=== PATIENT | male | born 1950 | race Caucasian/White ===

== ENCOUNTER 2017-09-21 10:58 | Emergency (ER) | payer MEDICARE, OTHER, SELFPAY ==
--- NOTE | 2017-09-21 11:06 | DI.RAD.S_ITS ---
PROCEDURE: XR FOOT RT MIN 3V INDICATIONS: heard a pop yesterday. TECHNIQUE: 3 views of the foot were acquired. COMPARISON: None. FINDINGS: Bones: No fractures or dislocations. No suspicious bony lesions. Soft tissues: No tibiotalar joint effusion. Achilles tendon appears normal. Dorsal lateral soft tissue swelling. IMPRESSION: No fracture or dislocation. Dorsal lateral soft tissue swelling. If clinical symptoms persist or clinical suspicion for pathology is high, MRI is suggested for further evaluation. Dictated by: Casi Butt M.D. on 09/21/2017 at 11:54 Approved by: Casi Butt M.D. on 09/21/2017 at 11:55
[2017-09-21 11:07] VITALS: BP 143/89; PULSE 75; RESP 16; TEMP 36.1; O2SAT 100; BMI 32.3
[2017-09-21 11:08] VITALS: BP 143/89; O2SAT 98
--- NOTE | 2017-09-21 12:05 | ED.LOWEXIN ---
HPI - Extremity Injury (Lower) General Chief Complaint: Extremity Injury, Lower Stated Complaint: HEARD POP IN FOOT, SHARP PAIN Time Seen by Provider: 09/21/17 11:03 History of Present Illness HPI Narrative: HPI 67-year-old male with apparently idiopathic RLE lymphedema presents for evaluation of right lateral foot pain that began when he was walking yesterday, patient felt a pop and has had difficulty walking secondary to pain. Patient denies further trauma, notes baseline sensation in his right foot, has been using crutches that he obtained prior to arrival. ROS with no recent constitutional symptoms. Exam Gen: Pleasant, nontoxic-appearing, resting comfortably. HEENT: NC, AT, PEERL, EOMI. Resp: Unlabored respirations with a normal work of breathing. Card: Extremities warm and well perfused. GI: Non-distended. : Deferred MSK: Right calf without visible or palpable trauma, muscle compartments soft and non-tender to palpation. Cota test with plantar flexion. No tenderness to palpation over the tibia or fibula. Ankle visually normal without ecchymosis inferior to the lateral malleolus. No tenderness over the posterior lateral malleolus, no tenderness over the posterior medial malleolus. Able to fully dorsiflex, plantarflex, xuan, and invert the ankle with full functional range of motion . Foot visually normal, mild tenderness to palpation generally in the area of the base of the 5th metatarsal extending onto the plantar surface, otherwise without tenderness to palpation, specifically including the navicular bone. Able flex and extend all toes. Muscle compartments of the foot are soft. There is mild diffuse swelling of the right calf and foot with 1+ pitting edema and a positive Stemmer's sign (baseline per patient). Foot warm and well perfused with brisk capillary refill. Sensation grossly intact to touch on the calf. Sensation intact to touch on all toes, first web space, the medial, lateral, plantar and dorsal surfaces of the foot. Gait - patient able to take 4 steps with an antalgic gait. Neuro: AO x 3, no facial asymmetry, vision and hearing WNL. Heme/Lymph: Deferred Skin: Normal color with no visible lesions (other than noted above). Psych: Mood and affect appropriate. Imaging: XR R foot: no fracture or dislocation. Dorsal lateral soft tissue swelling. If clinical symptoms persist or clinical suspicion for pathology is high, MRI is suggested for further evaluation. MDM Previous chart, nursing note, and vitals reviewed. A: 67-year-old male with apparently idiopathic RLE lymphedema presents for evaluation of right lateral foot pain that began when he was walking yesterday, patient felt a pop and has had difficulty walking secondary to pain. DDx & Evaluation: CMS intact, imaging without evidence of fracture. History, exam, imaging suspicious for tenderness versus ligamentous injury, patient recommended to use NSAIDs, continue crutches, return to weight-bearing as tolerated, and to follow up with his PCP for further evaluation as appropriate. Patient was notified of their elevated blood pressure and recommended to follow up with their primary care physician. As the patient is without evidence of acute end organ dysfunction no further emergent evaluation is indicated as per the 2013 [facility] clinical policy. Impression: right foot pain (please reference below for remainder of encounter information) Related Data Home Medications Medication Instructions Recorded Confirmed Adrenal Support 1 dose PO DAILY 09/21/17 09/21/17 Digestive Support 1 dose PO DAILY 09/21/17 09/21/17 Probiotic 1 cap PO DAILY 09/21/17 09/21/17 Vitamin D3 1 cap PO DAILY 09/21/17 09/21/17 pantoprazole 1 tab PO BID 09/21/17 09/21/17 Allergies Allergy/AdvReac Type Severity Reaction Status Date / Time No Known Drug Allergies Allergy Verified 09/21/17 11:07 [facility] Social History Smoking Status: Never smoker Exam Initial Vital Signs Initial Vital Signs: Vital Signs Temperature 97.0 F L 09/21/17 11:07 Pulse Rate 75 09/21/17 11:07 Respiratory Rate 16 09/21/17 11:07 Blood Pressure 143/89 H 09/21/17 11:07 Pulse Oximetry 100 09/21/17 11:07 Course Orders Ordered: ED Orders 09/21/17 11:06 XR foot RT min 3V Stat Vital Signs - 8 hr 09/21/17 11:07 09/21/17 11:08 Temperature 97.0 F L Pulse Rate 75 Respiratory Rate 16 Blood Pressure 143/89 H Blood Pressure [Right Arm] 143/89 H Pulse Oximetry 100 98 Discharge Plan Departure Prescriptions: No Action Adrenal Support 1 dose PO DAILY RF: 0 Digestive Support 1 dose PO DAILY RF: 0 Probiotic 1 cap PO DAILY RF: 0 Vitamin D3 1 cap PO DAILY RF: 0 pantoprazole 1 tab PO BID RF: 0
== END 2017-09-21 12:19 | disposition home or self-care (01) ==
PROVIDERS: Emergency Provider Emergency Medicine
DX: M79.671 Pain in right foot (principal)
CPT/HCPCS: 73630; 99282; 99283

== ENCOUNTER 2018-08-29 14:30 | Outpatient (RCR) | payer MEDICARE, OTHER, SELFPAY ==
--- NOTE | 2018-06-19 14:30 | PT.OPPOC ---
Current Diagnoses Lymphedema, not elsewhere classified (06/19/18) Pain in right hip (06/19/18) Pain in left hip (06/19/18) Provider Visit Care Team Role Provider Type Irene Haile PA-C Attending Provider Non-Staff Primary Care Provider Specialty: Medical Address: [address] [place] [address], [id number] Email: Plan Of Care PT-OP-T Assessment and Plan Start: 06/19/18 14:30 Freq: Status: Active Protocol: Document 06/19/18 14:30 SAK (Rec: 06/20/18 10:32 SAK [id number]) Physical Therapy Assessment Rehab Potential Rehabilitation Potential Good Evaluation Complexity Number of Personal Factors/Comorbidities 1-2 Number of Body Systems Impaired 3 Clinical Presentation at Evaluation Evolving Impairments Impairments Edema Functional Activities ROM Soft Tissue Mobility Strength Goals decreased scar mobility right LE Graphic Illustrator Goal (LTG) scar mobility right foot WNL LTG Duration 09/18/18 lymphedema life impact scale 56% Short Term Goal (STG) Decrease lymphedema life impact scale to 45 STG Duration 07/19/18 Senior Care Goal (LTG) Decrase lymphedema life impact scale to no greater than 30% to allow patient to increase his activity level and return to some of his prior activities including hiking. LTG Duration 09/18/18 decrease ROM and strength right foot/ankle Short Term Goal (STG) Instruct in ROM and strengthening ex right foot and ankle STG Duration 07/19/18 Graphic Illustrator Goal (LTG) right ankle ROM and strength WNL LTG Duration 09/18/18 lymphedema right LE Short Term Goal (STG) decrease circumferential measurements right LE by 1 cm STG Duration 07/19/18 Senior Care Goal (LTG) Decrease and stabilize right LE lymphedema (no increase or decrease greater than 1 cm over the course of 1 wk) and assure patient independent with self-care and has appropriate compression stockings for long-term care. Consider lymphedema pump. LTG Duration 09/18/18 Assessment Summary Assessment Patient presents with chronic lymphedema right LE, complicated by recent peroneal injury with residual decreases in ankle ROM and strength. Would benefit from physical therapy for lymphedema management which will include ROM and strengthening of his right ankle as well as scar mobilization to facilitate lymphatic flow and function of right LE. Physical Therapy Plan Frequency and Duration Frequency of Treatment 2x/Week Duration of Treatment 12 wks Plan of Care Start Date 06/19/18 Plan of Care End Date 09/18/18 Therapeutic Interventions Therapeutic Interventions Aquatic Therapy Home Exercise Program Lymphedema Management Manual Therapy Self-Care/Home Management Soft Tissue Mobilization Therapeutic Activities Therapeutic Exercises Next Visit Focus/Plan Next Note Type Treatment Note Next Visit Plan MLD, ankle ROM and strengthening, manual therapy to scar right foot. Plan of Care Dates Plan of Care Start Date 06/19/18 Plan of Care End Date 09/18/18 Please Sign and Return: I have reviewed this Plan of Care and certify that the skilled therapy services above are required to meet the patient?s needs. Physician Signature Date Printed Name and Credentials Clinical Instructor Signature Printed Name and Credentials
--- NOTE | 2018-06-19 14:30 | PT.OIE ---
Current Diagnoses Lymphedema, not elsewhere classified (06/19/18) Pain in right hip (06/19/18) Pain in left hip (06/19/18) Provider Visit Care Team Role Provider Type Irene Haile PA-C Attending Provider Non-Staff Primary Care Provider Specialty: Medical Address: [address] [place] [address], [id number] Email: Physical Therapy Initial Evaluation PT-OP-A Visit Information Start: 06/19/18 14:30 Freq: Status: Active Protocol: Document 06/19/18 14:30 SAK (Rec: 06/20/18 10:32 SAK [id number]) Out-Patient Physical Therapy Visit Information Visit Information Visit Type Initial Evaluation Visit Note Medicare Visit Start Time 14:30 Visit Stop Time 15:25 Total Visit Minutes 55 Visit Number 03/01 Number of HAND PAINT MIXER Visits 0 Evaluation Information Evaluation Date 06/19/18 PT-OP-B Current Condition Start: 06/19/18 14:30 Freq: Status: Active Protocol: Document 06/19/18 14:30 SAK (Rec: 06/19/18 15:40 SAK [id number]) Current Condition History of Current Condition Onset Date 30 yrs History of Current Condition Unknown cause of lymphedema; thought might have something to do with botched vasectomy which he had shortly before vasectomy. Also reports cartilage removed from right knee. Recent surgery right foot due to peroneal tendon tear. Lymphedema initially severe with exacerbations every 2 -4 yrs. Has been hospitalized for cellulitis, most recently as OP for IV medications. Has been losing weight (12# so far, planning for 25#), wants more attention given to his leg to reduce edema further to allow him to tolerate more activity . Has 2 pair of new custom stocking; thigh high. 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 Prior Treatments and Tests Prior lymphedema massage, exercise. No aquatic therapy Prior Functional Status Baseline Function- ADL's Modified Independent Baseline Function- Mobility Modified Independent Current Functional Impairments (Reported) Functional Limitations- Mobility/Gait indep but limited due to heaviness in right LE Functional Limitations- Work/School indep, wears compression stockings but swells as day progresses Functional Limitations- Recreation/ Limited due to heaviness in Hobbies right LE PT-OP-C Subjective Start: 06/19/18 14:30 Freq: Status: Active Protocol: Document 06/19/18 14:30 SAK (Rec: 06/20/18 10:32 SAK [id number]) Patient Questionnaires Lower Extremity Functional Scale LEFS Score 70% Lymphedema Life Impact Score Lymphedema Score 56% OP-PT Pain Assessment Pain Assessment Grid Paper Pain Assessment Grid Completed Yes Location right LE Intensity 2 PT-OP-F Manual Assessment Start: 06/19/18 14:30 Freq: Status: Active Protocol: Document 06/19/18 14:30 SAK (Rec: 06/20/18 10:32 SAK [id number]) Manual Assessments Soft Tissue Assessment Soft Tissue Mobility Assessment No palpable fibrosis right LE PT-OP-J Posture/Palpation/Skin Start: 06/19/18 14:30 Freq: Status: Active Protocol: Document 06/19/18 14:30 SAK (Rec: 06/20/18 10:32 SAK [id number]) Palpation Assessment Location right LE Palpation Findings Edema Palpation Details no increased warmth or tenderness Skin Assessment Edema Assessment right LE Edema Type Pitting Edema Degree 3+ Edema Appearance Puffy Subjective Edema Description Tightness PT-OP-K Range of Motion Start: 06/19/18 14:30 Freq: Status: Active Protocol: Document 06/19/18 14:30 SAK (Rec: 06/21/18 08:39 SAK [id number]) Hip Goniometric Range of Motion Hip Measured in Degrees jozef Hip ROM WFL Yes Knee Goniometric Range of Motion Knee Measured in Degrees jozef Knee ROM WFL Yes Ankle and Foot Goniometric Range of Motion Ankle and Foot Measured in Degrees right Dorsiflexion with Knee Flexed 5 Dorsiflexion with Knee Extended 2 Plantarflexion 35 Inversion 15 Eversion 10 left Dorsiflexion with Knee Flexed 10 Dorsiflexion with Knee Extended 5 Plantarflexion 50 Inversion 30 Eversion 25 Ankle and Foot ROM Limitations ROM Limitations Soft Tissue Tightness Muscle Weakness PT-OP-M Strength Start: 06/19/18 14:30 Freq: Status: Active Protocol: Document 06/19/18 14:30 SAK (Rec: 06/21/18 08:39 SAK [id number]) Hip Strength Hip Manual Muscle Testing jozef Flexion (L2) 4+ Good+ Extension (S1) 4+ Good+ Abduction 4+ Good+ Adduction 4+ Good+ External Rotation 4+ Good+ Internal Rotation 4+ Good+ Knee Strength Knee Manual Muscle Testing jozef Flexion (S2) 5 Normal Extension (L3) 5 Normal Ankle/Foot Strength Ankle and Foot Manual Muscle Testing Right Dorsiflexion (L4) 4 Good Plantarflexion (S1) 4 Good Inversion 4- Good- Eversion (S1) 4- Good- Left Dorsiflexion (L4) 4+ Good+ Plantarflexion (S1) 5 Normal Inversion 5 Normal Eversion (S1) 5 Normal PT-OP-N Lymphedema Start: 06/19/18 14:30 Freq: Status: Active Protocol: Document 06/19/18 14:30 [facility] (Rec: 06/20/18 10:32 [facility] [id number]) Lymphedema Measurements Lower Extremity Circumference Measurements right LE MT Heads 27.6 cm Medial Malleolus 32.7 cm 10 cm From Medial Malleolus 34.2 cm 20 cm From Medial Malleolus 41.4 cm 30 cm From Medial Malleolus 40.3 cm 40 cm From Medial Malleolus 38.5 cm 50 cm From Medial Malleolus 42.3 cm 60 cm From Medial Malleolus 49.5 cm 70 cm From Medial Malleolus 55.9 cm left LE MT Heads 26.4 cm Medial Malleolus 30.4 cm 10 cm From Medial Malleolus 29.6 cm 20 cm From Medial Malleolus 35.2 cm 30 cm From Medial Malleolus 36.3 cm 40 cm From Medial Malleolus 38.7 cm 50 cm From Medial Malleolus 43 cm 60 cm From Medial Malleolus 51.7 cm 70 cm From Medial Malleolus 56.7 cm PT-OP-Q Treatments Start: 06/19/18 14:30 Freq: Status: Active Protocol: Document 06/19/18 14:30 [facility] (Rec: 06/20/18 10:32 [facility] [id number]) Lymphedema Treatment Manual Lymphatic Drainage Location right LE Duration 15 Comments Initiated MLD Lymphedema Wrapping Other patient wearing new compression stockings Compression Garment Assessment Compression Garment Assessment Details good fit, patient thinks 20mm hg pressure Patient Education Other benefits of aquatic therapy, consider as part of POC PT-OP-T Assessment and Plan Start: 06/19/18 14:30 Freq: Status: Active Protocol: Document 06/19/18 14:30 [facility] (Rec: 06/20/18 10:32 [facility] [id number]) Physical Therapy Assessment Rehab Potential Rehabilitation Potential Good Evaluation Complexity Number of Personal Factors/Comorbidities 1-2 Number of Body Systems Impaired 3 Clinical Presentation at Evaluation Evolving Impairments Impairments Edema Functional Activities ROM Soft Tissue Mobility Strength Goals decreased scar mobility right LE Medical Physics Researcher Goal (LTG) scar mobility right foot WNL LTG Duration 09/18/18 lymphedema life impact scale 56% Short Term Goal (STG) Decrease lymphedema life impact scale to 45 STG Duration 07/19/18 Medical Physics Researcher Goal (LTG) Decrase lymphedema life impact scale to no greater than 30% to allow patient to increase his activity level and return to some of his prior activities including hiking. LTG Duration 09/18/18 decrease ROM and strength right foot/ankle Short Term Goal (STG) Instruct in ROM and strengthening ex right foot and ankle STG Duration 07/19/18 Medical Physics Researcher Goal (LTG) right ankle ROM and strength WNL LTG Duration 09/18/18 lymphedema right LE Short Term Goal (STG) decrease circumferential measurements right LE by 1 cm STG Duration 07/19/18 Medical Physics Researcher Goal (LTG) Decrease and stabilize right LE lymphedema (no increase or decrease greater than 1 cm over the course of 1 wk) and assure patient independent with self-care and has appropriate compression stockings for long-term care. Consider lymphedema pump. LTG Duration 09/18/18 Assessment Summary Assessment Patient presents with chronic lymphedema right LE, complicated by recent peroneal injury with residual decreases in ankle ROM and strength. Would benefit from physical therapy for lymphedema management which will include ROM and strengthening of his right ankle as well as scar mobilization to facilitate lymphatic flow and function of right LE. Physical Therapy Plan Frequency and Duration Frequency of Treatment 2x/Week Duration of Treatment 12 wks Plan of Care Start Date 06/19/18 Plan of Care End Date 09/18/18 Therapeutic Interventions Therapeutic Interventions Aquatic Therapy Home Exercise Program Lymphedema Management Manual Therapy Self-Care/Home Management Soft Tissue Mobilization Therapeutic Activities Therapeutic Exercises Next Visit Focus/Plan Next Note Type Treatment Note Next Visit Plan MLD, ankle ROM and strengthening, manual therapy to scar right foot.
--- NOTE | 2018-06-21 15:51 | PT.OTN ---
Current Diagnoses Lymphedema, not elsewhere classified (06/21/18) Pain in right hip (06/21/18) Pain in left hip (06/21/18) Physical Therapy Treatment Note PT-OP-A Visit Information Start: 06/19/18 14:30 Freq: Status: Active Protocol: Document 06/21/18 14:29 SAK (Rec: 06/21/18 15:48 [facility] [id number]) Out-Patient Physical Therapy Visit Information Visit Information Visit Type Treatment Note Visit Start Time 14:29 Visit Stop Time 15:30 Total Visit Minutes 61 Visit Number 2 Number of LAB ASSOCIATE Visits 0 PT-OP-B Current Condition Start: 06/19/18 14:30 Freq: Status: Active Protocol: Document 06/19/18 14:30 SAK (Rec: 06/19/18 15:40 SAK [id number]) Current Condition History of Current Condition Onset Date 30 yrs History of Current Condition Unknown cause of lymphedema; thought might have something to do with botched vasectomy which he had shortly before vasectomy. Also reports cartilage removed from right knee. Recent surgery right foot due to peroneal tendon tear. Lymphedema initially severe with exacerbations every 2 -4 yrs. Has been hospitalized for cellulitis, most recently as OP for IV medications. Has been losing weight (12# so far, planning for 25#), wants more attention given to his leg to reduce edema further to allow him to tolerate more activity . Has 2 pair of new custom stocking; thigh high. 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 Prior Treatments and Tests Prior lymphedema massage, exercise. No aquatic therapy Prior Functional Status Baseline Function- ADL's Modified Independent Baseline Function- Mobility Modified Independent Current Functional Impairments (Reported) Functional Limitations- Mobility/Gait indep but limited due to heaviness in right LE Functional Limitations- Work/School indep, wears compression stockings but swells as day progresses Functional Limitations- Recreation/ Limited due to heaviness in Hobbies right LE PT-OP-C Subjective Start: 06/19/18 14:30 Freq: Status: Active Protocol: Document 06/21/18 14:29 SAK (Rec: 06/21/18 15:48 [facility] [id number]) OP-PT Subjective Patient Comments Patient Comments No new c/o. Didn't wear compression stocking this am due to not dry from washing. PT-OP-F Manual Assessment Start: 06/19/18 14:30 Freq: Status: Active Protocol: Document 06/19/18 14:30 SAK (Rec: 06/20/18 10:32 SAK [id number]) Manual Assessments Soft Tissue Assessment Soft Tissue Mobility Assessment No palpable fibrosis right LE PT-OP-J Posture/Palpation/Skin Start: 06/19/18 14:30 Freq: Status: Active Protocol: Document 06/19/18 14:30 SAK (Rec: 06/20/18 10:32 SAK [id number]) Palpation Assessment Location right LE Palpation Findings Edema Palpation Details no increased warmth or tenderness Skin Assessment Edema Assessment right LE Edema Type Pitting Edema Degree 3+ Edema Appearance Puffy Subjective Edema Description Tightness PT-OP-K Range of Motion Start: 06/19/18 14:30 Freq: Status: Active Protocol: Document 06/19/18 14:30 SAK (Rec: 06/21/18 08:39 [facility] [id number]) Hip Goniometric Range of Motion Hip Measured in Degrees jozef Hip ROM WFL Yes Knee Goniometric Range of Motion Knee Measured in Degrees jozef Knee ROM WFL Yes Ankle and Foot Goniometric Range of Motion Ankle and Foot Measured in Degrees right Dorsiflexion with Knee Flexed 5 Dorsiflexion with Knee Extended 2 Plantarflexion 35 Inversion 15 Eversion 10 left Dorsiflexion with Knee Flexed 10 Dorsiflexion with Knee Extended 5 Plantarflexion 50 Inversion 30 Eversion 25 Ankle and Foot ROM Limitations ROM Limitations Soft Tissue Tightness Muscle Weakness PT-OP-M Strength Start: 06/19/18 14:30 Freq: Status: Active Protocol: Document 06/19/18 14:30 [facility] (Rec: 06/21/18 08:39 [facility] [id number]) Hip Strength Hip Manual Muscle Testing jozef Flexion (L2) 4+ Good+ Extension (S1) 4+ Good+ Abduction 4+ Good+ Adduction 4+ Good+ External Rotation 4+ Good+ Internal Rotation 4+ Good+ Knee Strength Knee Manual Muscle Testing jozef Flexion (S2) 5 Normal Extension (L3) 5 Normal Ankle/Foot Strength Ankle and Foot Manual Muscle Testing Right Dorsiflexion (L4) 4 Good Plantarflexion (S1) 4 Good Inversion 4- Good- Eversion (S1) 4- Good- Left Dorsiflexion (L4) 4+ Good+ Plantarflexion (S1) 5 Normal Inversion 5 Normal Eversion (S1) 5 Normal PT-OP-N Lymphedema Start: 06/19/18 14:30 Freq: Status: Active Protocol: Document 06/19/18 14:30 [facility] (Rec: 06/20/18 10:32 [facility] [id number]) Lymphedema Measurements Lower Extremity Circumference Measurements right LE MT Heads 27.6 cm Medial Malleolus 32.7 cm 10 cm From Medial Malleolus 34.2 cm 20 cm From Medial Malleolus 41.4 cm 30 cm From Medial Malleolus 40.3 cm 40 cm From Medial Malleolus 38.5 cm 50 cm From Medial Malleolus 42.3 cm 60 cm From Medial Malleolus 49.5 cm 70 cm From Medial Malleolus 55.9 cm left LE MT Heads 26.4 cm Medial Malleolus 30.4 cm 10 cm From Medial Malleolus 29.6 cm 20 cm From Medial Malleolus 35.2 cm 30 cm From Medial Malleolus 36.3 cm 40 cm From Medial Malleolus 38.7 cm 50 cm From Medial Malleolus 43 cm 60 cm From Medial Malleolus 51.7 cm 70 cm From Medial Malleolus 56.7 cm PT-OP-Q Treatments Start: 06/19/18 14:30 Freq: Status: Active Protocol: Document 06/21/18 14:29 [facility] (Rec: 06/21/18 15:46 [facility] [id number]) Cardio Equipment Recumbent Elliptical (Biodex) Duration (Minutes) 5 Resistance 1.0 Seat Position 9 Therapeutic Exercises Sitting Exercises BAPS board Sitting Exercise Name fwd/bck, side, circles Equipment Used BAPS L2-4 Reps/Minutes 10x ea Standing Exercises SLS Reps/Minutes 3x ea Comments 4-5 sec max right, 10 left BOSU Standing Exercise Name standing bal, walk in place Reps/Minutes 10x HC stretch Equipment Used RAMON Reps/Minutes 2x Manual Therapy Treatment Soft Tissue Mobilization scar right ankle Mobilization Type Rolling Strumming Body Position Supine Lymphedema Treatment Manual Lymphatic Drainage Location right LE Duration 30 Lymphedema Wrapping Other patient wearing new compression stockings Compression Garment Assessment Compression Garment Assessment Details good fit, patient thinks 20mm hg pressure Patient Education Lymphedema Pathology using informational posters Self Manual Lymphatic Drainage verbal review Sequential Lymphedema Exercises instructed and issued written handout PT-OP-T Assessment and Plan Start: 06/19/18 14:30 Freq: Status: Active Protocol: Document 06/21/18 14:29 KATT (Rec: 06/21/18 15:46 SAK [id number]) Physical Therapy Assessment Goals decreased scar mobility right LE Career Technology Teacher Goal (LTG) scar mobility right foot WNL LTG Duration 09/18/18 lymphedema life impact scale 56% Short Term Goal (STG) Decrease lymphedema life impact scale to 45 STG Duration 07/19/18 Career Technology Teacher Goal (LTG) Decrase lymphedema life impact scale to no greater than 30% to allow patient to increase his activity level and return to some of his prior activities including hiking. LTG Duration 09/18/18 decrease ROM and strength right foot/ankle Short Term Goal (STG) Instruct in ROM and strengthening ex right foot and ankle STG Duration 07/19/18 [facility] Goal (LTG) right ankle ROM and strength WNL LTG Duration 09/18/18 lymphedema right LE Short Term Goal (STG) decrease circumferential measurements right LE by 1 cm STG Duration 07/19/18 [facility] Goal (LTG) Decrease and stabilize right LE lymphedema (no increase or decrease greater than 1 cm over the course of 1 wk) and assure patient independent with self-care and has appropriate compression stockings for long-term care. Consider lymphedema pump. LTG Duration 09/18/18 Assessment Summary Assessment Demonstrated good understanding of rationale for lymphedema treatment including how decreased ankle ROM and strength can impact lymphedema. Demonstrated good understanding of sequential lymphedema exercises. May benefit from short term wrapping for further lymphedema reduction. Physical Therapy Plan Frequency and Duration Frequency of Treatment 2x/Week Duration of Treatment 12 wks Plan of Care Start Date 06/19/18 Plan of Care End Date 09/18/18 Therapeutic Interventions Therapeutic Interventions Aquatic Therapy Home Exercise Program Lymphedema Management Manual Therapy Self-Care/Home Management Soft Tissue Mobilization Therapeutic Activities Therapeutic Exercises Next Visit Focus/Plan Next Note Type Treatment Note Next Visit Plan Continue lymphedema management . Consider wrapping right LE for further edema reduction.
--- NOTE | 2018-06-28 09:32 | PT.OTN ---
Current Diagnoses Lymphedema, not elsewhere classified (06/28/18) Pain in right hip (06/28/18) Pain in left hip (06/28/18) Physical Therapy Treatment Note PT-OP-A Visit Information Start: 06/19/18 14:30 Freq: Status: Active Protocol: Document 06/28/18 08:18 SAK (Rec: 06/28/18 09:30 [facility] [id number]) Out-Patient Physical Therapy Visit Information Visit Information Visit Type Treatment Note Visit Start Time 08:15 Visit Stop Time 09:20 Total Visit Minutes 65 Visit Number 3 Number of HAT CLEANER Visits 0 PT-OP-B Current Condition Start: 06/19/18 14:30 Freq: Status: Active Protocol: Document 06/19/18 14:30 SAK (Rec: 06/19/18 15:40 SAK [id number]) Current Condition History of Current Condition Onset Date 30 yrs History of Current Condition Unknown cause of lymphedema; thought might have something to do with botched vasectomy which he had shortly before vasectomy. Also reports cartilage removed from right knee. Recent surgery right foot due to peroneal tendon tear. Lymphedema initially severe with exacerbations every 2 -4 yrs. Has been hospitalized for cellulitis, most recently as OP for IV medications. Has been losing weight (12# so far, planning for 25#), wants more attention given to his leg to reduce edema further to allow him to tolerate more activity . Has 2 pair of new custom stocking; thigh high. 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 Prior Treatments and Tests Prior lymphedema massage, exercise. No aquatic therapy Prior Functional Status Baseline Function- ADL's Modified Independent Baseline Function- Mobility Modified Independent Current Functional Impairments (Reported) Functional Limitations- Mobility/Gait indep but limited due to heaviness in right LE Functional Limitations- Work/School indep, wears compression stockings but swells as day progresses Functional Limitations- Recreation/ Limited due to heaviness in Hobbies right LE PT-OP-C Subjective Start: 06/19/18 14:30 Freq: Status: Active Protocol: Document 06/28/18 08:18 SAK (Rec: 06/28/18 09:30 [facility] [id number]) OP-PT Subjective Patient Comments Patient Comments Notes decrease in edema and improved mobility after PT treatment. Compliant mariah HEP. PT-OP-F Manual Assessment Start: 06/19/18 14:30 Freq: Status: Active Protocol: Document 06/19/18 14:30 SAK (Rec: 06/20/18 10:32 SAK [id number]) Manual Assessments Soft Tissue Assessment Soft Tissue Mobility Assessment No palpable fibrosis right LE PT-OP-J Posture/Palpation/Skin Start: 06/19/18 14:30 Freq: Status: Active Protocol: Document 06/19/18 14:30 SAK (Rec: 06/20/18 10:32 SAK [id number]) Palpation Assessment Location right LE Palpation Findings Edema Palpation Details no increased warmth or tenderness Skin Assessment Edema Assessment right LE Edema Type Pitting Edema Degree 3+ Edema Appearance Puffy Subjective Edema Description Tightness PT-OP-K Range of Motion Start: 06/19/18 14:30 Freq: Status: Active Protocol: Document 06/19/18 14:30 SAK (Rec: 06/21/18 08:39 SAK [id number]) Hip Goniometric Range of Motion Hip Measured in Degrees jozef Hip ROM WFL Yes Knee Goniometric Range of Motion Knee Measured in Degrees jozef Knee ROM WFL Yes Ankle and Foot Goniometric Range of Motion Ankle and Foot Measured in Degrees right Dorsiflexion with Knee Flexed 5 Dorsiflexion with Knee Extended 2 Plantarflexion 35 Inversion 15 Eversion 10 left Dorsiflexion with Knee Flexed 10 Dorsiflexion with Knee Extended 5 Plantarflexion 50 Inversion 30 Eversion 25 Ankle and Foot ROM Limitations ROM Limitations Soft Tissue Tightness Muscle Weakness PT-OP-M Strength Start: 06/19/18 14:30 Freq: Status: Active Protocol: Document 06/19/18 14:30 [facility] (Rec: 06/21/18 08:39 [facility] [id number]) Hip Strength Hip Manual Muscle Testing jozef Flexion (L2) 4+ Good+ Extension (S1) 4+ Good+ Abduction 4+ Good+ Adduction 4+ Good+ External Rotation 4+ Good+ Internal Rotation 4+ Good+ Knee Strength Knee Manual Muscle Testing jozef Flexion (S2) 5 Normal Extension (L3) 5 Normal Ankle/Foot Strength Ankle and Foot Manual Muscle Testing Right Dorsiflexion (L4) 4 Good Plantarflexion (S1) 4 Good Inversion 4- Good- Eversion (S1) 4- Good- Left Dorsiflexion (L4) 4+ Good+ Plantarflexion (S1) 5 Normal Inversion 5 Normal Eversion (S1) 5 Normal PT-OP-N Lymphedema Start: 06/19/18 14:30 Freq: Status: Active Protocol: Document 06/19/18 14:30 [facility] (Rec: 06/20/18 10:32 [facility] [id number]) Lymphedema Measurements Lower Extremity Circumference Measurements right LE MT Heads 27.6 cm Medial Malleolus 32.7 cm 10 cm From Medial Malleolus 34.2 cm 20 cm From Medial Malleolus 41.4 cm 30 cm From Medial Malleolus 40.3 cm 40 cm From Medial Malleolus 38.5 cm 50 cm From Medial Malleolus 42.3 cm 60 cm From Medial Malleolus 49.5 cm 70 cm From Medial Malleolus 55.9 cm left LE MT Heads 26.4 cm Medial Malleolus 30.4 cm 10 cm From Medial Malleolus 29.6 cm 20 cm From Medial Malleolus 35.2 cm 30 cm From Medial Malleolus 36.3 cm 40 cm From Medial Malleolus 38.7 cm 50 cm From Medial Malleolus 43 cm 60 cm From Medial Malleolus 51.7 cm 70 cm From Medial Malleolus 56.7 cm PT-OP-Q Treatments Start: 06/19/18 14:30 Freq: Status: Active Protocol: Document 06/28/18 08:18 [facility] (Rec: 06/28/18 09:30 [facility] [id number]) Cardio Equipment Recumbent Elliptical (Biodex) Duration (Minutes) 6 Resistance 1.0 Seat Position 9 Gym Equipment Shuttle Balance chains red Details bal and wt shifts fwd/bck, side, stride Therapeutic Exercises Standing Exercises SLS Equipment Used blue foam, black foam Reps/Minutes 3x ea BOSU Standing Exercise Name standing bal, walk in place, squat, side step-overs Reps/Minutes 10 min HC stretch Equipment Used RAMON Reps/Minutes 2x Comments jozef and unil Manual Therapy Treatment Soft Tissue Mobilization scar right ankle Mobilization Type Rolling Strumming Body Position Supine Lymphedema Treatment Manual Lymphatic Drainage Location right LE Duration 30 PT-OP-T Assessment and Plan Start: 06/19/18 14:30 Freq: Status: Active Protocol: Document 06/28/18 08:18 [facility] (Rec: 06/28/18 09:30 [facility] [id number]) Physical Therapy Assessment Goals decreased scar mobility right LE Fpc Goal (LTG) scar mobility right foot WNL LTG Duration 09/18/18 lymphedema life impact scale 56% Short Term Goal (STG) Decrease lymphedema life impact scale to 45 STG Duration 07/19/18 Process Chemist Goal (LTG) Decrase lymphedema life impact scale to no greater than 30% to allow patient to increase his activity level and return to some of his prior activities including hiking. LTG Duration 09/18/18 decrease ROM and strength right foot/ankle Short Term Goal (STG) Instruct in ROM and strengthening ex right foot and ankle STG Duration 07/19/18 Process Chemist Goal (LTG) right ankle ROM and strength WNL LTG Duration 09/18/18 lymphedema right LE Short Term Goal (STG) decrease circumferential measurements right LE by 1 cm STG Duration 07/19/18 [facility] Goal (LTG) Decrease and stabilize right LE lymphedema (no increase or decrease greater than 1 cm over the course of 1 wk) and assure patient independent with self-care and has appropriate compression stockings for long-term care. Consider lymphedema pump. LTG Duration 09/18/18 Assessment Summary Assessment Good response to PT with patient noting improved ROM, decreased edema. Physical Therapy Plan Frequency and Duration Frequency of Treatment 2x/Week Duration of Treatment 12 wks Plan of Care Start Date 06/19/18 Plan of Care End Date 09/18/18 Therapeutic Interventions Therapeutic Interventions Aquatic Therapy Home Exercise Program Lymphedema Management Manual Therapy Self-Care/Home Management Soft Tissue Mobilization Therapeutic Activities Therapeutic Exercises Next Visit Focus/Plan Next Note Type Treatment Note Next Visit Plan Circumferential measurements, continue PT for lymphedema management, ankle ROM and strengthening.
--- NOTE | 2018-07-03 10:59 | PT.OTN ---
Current Diagnoses Lymphedema, not elsewhere classified (07/03/18) Pain in right hip (07/03/18) Pain in left hip (07/03/18) Physical Therapy Treatment Note PT-OP-A Visit Information Start: 06/19/18 14:30 Freq: Status: Active Protocol: Document 07/03/18 09:46 SAK (Rec: 07/03/18 10:15 SAK [id number]) Out-Patient Physical Therapy Visit Information Visit Information Visit Type Treatment Note Visit Start Time 09:45 Visit Stop Time 10:50 Total Visit Minutes 65 Visit Number 4 Number of MICROBIOLOGY LAB ASSISTANT Visits 0 Evaluation Information Evaluation Date 06/19/18 PT-OP-B Current Condition Start: 06/19/18 14:30 Freq: Status: Active Protocol: Document 06/19/18 14:30 SAK (Rec: 06/19/18 15:40 SAK [id number]) Current Condition History of Current Condition Onset Date 30 yrs History of Current Condition Unknown cause of lymphedema; thought might have something to do with botched vasectomy which he had shortly before vasectomy. Also reports cartilage removed from right knee. Recent surgery right foot due to peroneal tendon tear. Lymphedema initially severe with exacerbations every 2 -4 yrs. Has been hospitalized for cellulitis, most recently as OP for IV medications. Has been losing weight (12# so far, planning for 25#), wants more attention given to his leg to reduce edema further to allow him to tolerate more activity . Has 2 pair of new custom stocking; thigh high. 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 Prior Treatments and Tests Prior lymphedema massage, exercise. No aquatic therapy Prior Functional Status Baseline Function- ADL's Modified Independent Baseline Function- Mobility Modified Independent Current Functional Impairments (Reported) Functional Limitations- Mobility/Gait indep but limited due to heaviness in right LE Functional Limitations- Work/School indep, wears compression stockings but swells as day progresses Functional Limitations- Recreation/ Limited due to heaviness in Hobbies right LE PT-OP-C Subjective Start: 06/19/18 14:30 Freq: Status: Active Protocol: Document 07/03/18 09:46 SAK (Rec: 07/03/18 10:15 SAK [id number]) OP-PT Subjective Patient Comments Patient Comments Reports improved mobility in ankle , decreased edema. Compliant to HEP. PT-OP-F Manual Assessment Start: 06/19/18 14:30 Freq: Status: Active Protocol: Document 06/19/18 14:30 SAK (Rec: 06/20/18 10:32 SAK [id number]) Manual Assessments Soft Tissue Assessment Soft Tissue Mobility Assessment No palpable fibrosis right LE PT-OP-J Posture/Palpation/Skin Start: 06/19/18 14:30 Freq: Status: Active Protocol: Document 06/19/18 14:30 SAK (Rec: 06/20/18 10:32 SAK [id number]) Palpation Assessment Location right LE Palpation Findings Edema Palpation Details no increased warmth or tenderness Skin Assessment Edema Assessment right LE Edema Type Pitting Edema Degree 3+ Edema Appearance Puffy Subjective Edema Description Tightness PT-OP-K Range of Motion Start: 06/19/18 14:30 Freq: Status: Active Protocol: Document 06/19/18 14:30 SAK (Rec: 06/21/18 08:39 [facility] [id number]) Hip Goniometric Range of Motion Hip Measured in Degrees jozef Hip ROM WFL Yes Knee Goniometric Range of Motion Knee Measured in Degrees jozef Knee ROM WFL Yes Ankle and Foot Goniometric Range of Motion Ankle and Foot Measured in Degrees right Dorsiflexion with Knee Flexed 5 Dorsiflexion with Knee Extended 2 Plantarflexion 35 Inversion 15 Eversion 10 left Dorsiflexion with Knee Flexed 10 Dorsiflexion with Knee Extended 5 Plantarflexion 50 Inversion 30 Eversion 25 Ankle and Foot ROM Limitations ROM Limitations Soft Tissue Tightness Muscle Weakness PT-OP-M Strength Start: 06/19/18 14:30 Freq: Status: Active Protocol: Document 06/19/18 14:30 [facility] (Rec: 06/21/18 08:39 [facility] [id number]) Hip Strength Hip Manual Muscle Testing jozef Flexion (L2) 4+ Good+ Extension (S1) 4+ Good+ Abduction 4+ Good+ Adduction 4+ Good+ External Rotation 4+ Good+ Internal Rotation 4+ Good+ Knee Strength Knee Manual Muscle Testing jozef Flexion (S2) 5 Normal Extension (L3) 5 Normal Ankle/Foot Strength Ankle and Foot Manual Muscle Testing Right Dorsiflexion (L4) 4 Good Plantarflexion (S1) 4 Good Inversion 4- Good- Eversion (S1) 4- Good- Left Dorsiflexion (L4) 4+ Good+ Plantarflexion (S1) 5 Normal Inversion 5 Normal Eversion (S1) 5 Normal PT-OP-N Lymphedema Start: 06/19/18 14:30 Freq: Status: Active Protocol: Document 06/19/18 14:30 [facility] (Rec: 06/20/18 10:32 [facility] [id number]) Lymphedema Measurements Lower Extremity Circumference Measurements right LE MT Heads 27.6 cm Medial Malleolus 32.7 cm 10 cm From Medial Malleolus 34.2 cm 20 cm From Medial Malleolus 41.4 cm 30 cm From Medial Malleolus 40.3 cm 40 cm From Medial Malleolus 38.5 cm 50 cm From Medial Malleolus 42.3 cm 60 cm From Medial Malleolus 49.5 cm 70 cm From Medial Malleolus 55.9 cm left LE MT Heads 26.4 cm Medial Malleolus 30.4 cm 10 cm From Medial Malleolus 29.6 cm 20 cm From Medial Malleolus 35.2 cm 30 cm From Medial Malleolus 36.3 cm 40 cm From Medial Malleolus 38.7 cm 50 cm From Medial Malleolus 43 cm 60 cm From Medial Malleolus 51.7 cm 70 cm From Medial Malleolus 56.7 cm PT-OP-Q Treatments Start: 06/19/18 14:30 Freq: Status: Active Protocol: Document 07/03/18 09:46 [facility] (Rec: 07/03/18 10:15 [facility] [id number]) Cardio Equipment Recumbent Elliptical (Biodex) Duration (Minutes) 6 Resistance 3.0 Seat Position 9 Therapeutic Exercises Standing Exercises ankle df/pf Equipment Used RAMON Reps/Minutes 10x BOSU Standing Exercise Name standing bal, walk in place, squat, side step-overs Reps/Minutes 17 min Comments added flat side bal and wt shifts, SLS both sides HC stretch Equipment Used RAMON Reps/Minutes 2x Comments jozef and unil Manual Therapy Treatment Soft Tissue Mobilization scar right ankle Mobilization Type Rolling Strumming Body Position Supine Lymphedema Treatment Manual Lymphatic Drainage Location right LE Duration 30 Lymphedema Wrapping Other patient wearing new compression stockings PT-OP-T Assessment and Plan Start: 06/19/18 14:30 Freq: Status: Active Protocol: Document 07/03/18 09:46 [facility] (Rec: 07/03/18 10:15 [facility] [id number]) Physical Therapy Assessment Goals decreased scar mobility right LE Fci Goal (LTG) scar mobility right foot WNL LTG Duration 09/18/18 lymphedema life impact scale 56% Short Term Goal (STG) Decrease lymphedema life impact scale to 45 STG Duration 07/19/18 [facility]ci Goal (LTG) Decrase lymphedema life impact scale to no greater than 30% to allow patient to increase his activity level and return to some of his prior activities including hiking. LTG Duration 09/18/18 decrease ROM and strength right foot/ankle Short Term Goal (STG) Instruct in ROM and strengthening ex right foot and ankle STG Duration 07/19/18 Cable Reeler Goal (LTG) right ankle ROM and strength WNL LTG Duration 09/18/18 lymphedema right LE Short Term Goal (STG) decrease circumferential measurements right LE by 1 cm STG Duration 07/19/18 [facility]ci Goal (LTG) Decrease and stabilize right LE lymphedema (no increase or decrease greater than 1 cm over the course of 1 wk) and assure patient independent with self-care and has appropriate compression stockings for long-term care. Consider lymphedema pump. LTG Duration 09/18/18 Progress Towards Goals Progress Towards Goals Progressing Toward Goals Assessment Summary Assessment Decreased circumferential measurements entire right LE, improved ROM. Physical Therapy Plan Frequency and Duration Frequency of Treatment 2x/Week Duration of Treatment 12 wks Plan of Care Start Date 06/19/18 Plan of Care End Date 09/18/18 Therapeutic Interventions Therapeutic Interventions Aquatic Therapy Home Exercise Program Lymphedema Management Manual Therapy Self-Care/Home Management Soft Tissue Mobilization Therapeutic Activities Therapeutic Exercises Next Visit Focus/Plan Next Note Type Treatment Note Next Visit Plan Circumferential measurements, continue PT for lymphedema management, ankle ROM and strengthening.
--- NOTE | 2018-07-05 09:29 | PT.OTN ---
Current Diagnoses Lymphedema, not elsewhere classified (07/05/18) Pain in right hip (07/05/18) Pain in left hip (07/05/18) Physical Therapy Treatment Note PT-OP-A Visit Information Start: 06/19/18 14:30 Freq: Status: Active Protocol: Document 07/05/18 08:14 SAK (Rec: 07/05/18 08:33 SAK [id number]) Out-Patient Physical Therapy Visit Information Visit Information Visit Type Treatment Note Visit Start Time 09:45 Visit Stop Time 10:50 Total Visit Minutes 65 Visit Number 5 Number of COLLAR TRIMMER Visits 0 Evaluation Information Evaluation Date 06/19/18 PT-OP-B Current Condition Start: 06/19/18 14:30 Freq: Status: Active Protocol: Document 06/19/18 14:30 SAK (Rec: 06/19/18 15:40 SAK [id number]) Current Condition History of Current Condition Onset Date 30 yrs History of Current Condition Unknown cause of lymphedema; thought might have something to do with botched vasectomy which he had shortly before vasectomy. Also reports cartilage removed from right knee. Recent surgery right foot due to peroneal tendon tear. Lymphedema initially severe with exacerbations every 2 -4 yrs. Has been hospitalized for cellulitis, most recently as OP for IV medications. Has been losing weight (12# so far, planning for 25#), wants more attention given to his leg to reduce edema further to allow him to tolerate more activity . Has 2 pair of new custom stocking; thigh high. 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 Prior Treatments and Tests Prior lymphedema massage, exercise. No aquatic therapy Prior Functional Status Baseline Function- ADL's Modified Independent Baseline Function- Mobility Modified Independent Current Functional Impairments (Reported) Functional Limitations- Mobility/Gait indep but limited due to heaviness in right LE Functional Limitations- Work/School indep, wears compression stockings but swells as day progresses Functional Limitations- Recreation/ Limited due to heaviness in Hobbies right LE PT-OP-C Subjective Start: 06/19/18 14:30 Freq: Status: Active Protocol: Document 07/05/18 08:14 SAK (Rec: 07/05/18 08:33 SAK [id number]) OP-PT Subjective Patient Comments Patient Comments Continue to feel improved ankle mobility, decreased swelling. PT-OP-F Manual Assessment Start: 06/19/18 14:30 Freq: Status: Active Protocol: Document 06/19/18 14:30 SAK (Rec: 06/20/18 10:32 SAK [id number]) Manual Assessments Soft Tissue Assessment Soft Tissue Mobility Assessment No palpable fibrosis right LE PT-OP-J Posture/Palpation/Skin Start: 06/19/18 14:30 Freq: Status: Active Protocol: Document 06/19/18 14:30 SAK (Rec: 06/20/18 10:32 SAK [id number]) Palpation Assessment Location right LE Palpation Findings Edema Palpation Details no increased warmth or tenderness Skin Assessment Edema Assessment right LE Edema Type Pitting Edema Degree 3+ Edema Appearance Puffy Subjective Edema Description Tightness PT-OP-K Range of Motion Start: 06/19/18 14:30 Freq: Status: Active Protocol: Document 06/19/18 14:30 SAK (Rec: 06/21/18 08:39 [facility] [id number]) Hip Goniometric Range of Motion Hip Measured in Degrees jozef Hip ROM WFL Yes Knee Goniometric Range of Motion Knee Measured in Degrees jozef Knee ROM WFL Yes Ankle and Foot Goniometric Range of Motion Ankle and Foot Measured in Degrees right Dorsiflexion with Knee Flexed 5 Dorsiflexion with Knee Extended 2 Plantarflexion 35 Inversion 15 Eversion 10 left Dorsiflexion with Knee Flexed 10 Dorsiflexion with Knee Extended 5 Plantarflexion 50 Inversion 30 Eversion 25 Ankle and Foot ROM Limitations ROM Limitations Soft Tissue Tightness Muscle Weakness PT-OP-M Strength Start: 06/19/18 14:30 Freq: Status: Active Protocol: Document 06/19/18 14:30 SAK (Rec: 06/21/18 08:39 [facility] [id number]) Hip Strength Hip Manual Muscle Testing jozef Flexion (L2) 4+ Good+ Extension (S1) 4+ Good+ Abduction 4+ Good+ Adduction 4+ Good+ External Rotation 4+ Good+ Internal Rotation 4+ Good+ Knee Strength Knee Manual Muscle Testing jozef Flexion (S2) 5 Normal Extension (L3) 5 Normal Ankle/Foot Strength Ankle and Foot Manual Muscle Testing Right Dorsiflexion (L4) 4 Good Plantarflexion (S1) 4 Good Inversion 4- Good- Eversion (S1) 4- Good- Left Dorsiflexion (L4) 4+ Good+ Plantarflexion (S1) 5 Normal Inversion 5 Normal Eversion (S1) 5 Normal PT-OP-N Lymphedema Start: 06/19/18 14:30 Freq: Status: Active Protocol: Document 06/19/18 14:30 [facility] (Rec: 06/20/18 10:32 [facility] [id number]) Lymphedema Measurements Lower Extremity Circumference Measurements right LE MT Heads 27.6 cm Medial Malleolus 32.7 cm 10 cm From Medial Malleolus 34.2 cm 20 cm From Medial Malleolus 41.4 cm 30 cm From Medial Malleolus 40.3 cm 40 cm From Medial Malleolus 38.5 cm 50 cm From Medial Malleolus 42.3 cm 60 cm From Medial Malleolus 49.5 cm 70 cm From Medial Malleolus 55.9 cm left LE MT Heads 26.4 cm Medial Malleolus 30.4 cm 10 cm From Medial Malleolus 29.6 cm 20 cm From Medial Malleolus 35.2 cm 30 cm From Medial Malleolus 36.3 cm 40 cm From Medial Malleolus 38.7 cm 50 cm From Medial Malleolus 43 cm 60 cm From Medial Malleolus 51.7 cm 70 cm From Medial Malleolus 56.7 cm PT-OP-Q Treatments Start: 06/19/18 14:30 Freq: Status: Active Protocol: Document 07/05/18 08:14 [facility] (Rec: 07/05/18 08:33 [facility] [id number]) Cardio Equipment Recumbent Elliptical (Biodex) Duration (Minutes) 7 Resistance 3.0 Seat Position 9 Therapeutic Exercises Standing Exercises BAPS Standing Exercise Name fwd/bck, side, circles Equipment Used BAPS L4 ankle df/pf Equipment Used RAMON Reps/Minutes 10x SLS Equipment Used black foam Reps/Minutes 3x ea BOSU Standing Exercise Name standing bal, walk in place, squat, side step-overs Reps/Minutes 17 min Comments added flat side bal and wt shifts, SLS both sides HC stretch Equipment Used RAMON Reps/Minutes 2x Comments jozef and unil Manual Therapy Treatment Soft Tissue Mobilization scar right ankle Mobilization Type Rolling Strumming Body Position Supine Lymphedema Treatment Manual Lymphatic Drainage Location right LE Duration 30 Lymphedema Wrapping Other compression stockings PT-OP-T Assessment and Plan Start: 06/19/18 14:30 Freq: Status: Active Protocol: Document 07/05/18 08:14 [facility] (Rec: 07/05/18 08:33 [facility] [id number]) Physical Therapy Assessment Goals decreased scar mobility right LE Cycling Instructor Goal (LTG) scar mobility right foot WNL LTG Duration 09/18/18 lymphedema life impact scale 56% Short Term Goal (STG) Decrease lymphedema life impact scale to 45 STG Duration 07/19/18 Cycling Instructor Goal (LTG) Decrase lymphedema life impact scale to no greater than 30% to allow patient to increase his activity level and return to some of his prior activities including hiking. LTG Duration 09/18/18 decrease ROM and strength right foot/ankle Short Term Goal (STG) Instruct in ROM and strengthening ex right foot and ankle STG Duration 07/19/18 [facility]ci Goal (LTG) right ankle ROM and strength WNL LTG Duration 09/18/18 lymphedema right LE Short Term Goal (STG) decrease circumferential measurements right LE by 1 cm STG Duration 07/19/18 Cycling Instructor Goal (LTG) Decrease and stabilize right LE lymphedema (no increase or decrease greater than 1 cm over the course of 1 wk) and assure patient independent with self-care and has appropriate compression stockings for long-term care. Consider lymphedema pump. LTG Duration 09/18/18 Assessment Summary Assessment right ankle df active inc to 5 deg. Physical Therapy Plan Frequency and Duration Frequency of Treatment 2x/Week Duration of Treatment 12 wks Plan of Care Start Date 06/19/18 Plan of Care End Date 09/18/18 Therapeutic Interventions Therapeutic Interventions Aquatic Therapy Home Exercise Program Lymphedema Management Manual Therapy Self-Care/Home Management Soft Tissue Mobilization Therapeutic Activities Therapeutic Exercises Next Visit Focus/Plan Next Note Type Treatment Note Next Visit Plan Reassess all objective measures.
--- NOTE | 2018-08-08 15:51 | PT.OTN ---
Current Diagnoses Lymphedema, not elsewhere classified (08/08/18) Pain in right hip (08/08/18) Pain in left hip (08/08/18) Physical Therapy Treatment Note PT-OP-A Visit Information Start: 06/19/18 14:30 Freq: Status: Active Protocol: Document 08/08/18 14:28 SAK (Rec: 08/08/18 15:47 SAK [id number]) Out-Patient Physical Therapy Visit Information Visit Information Visit Type Treatment Note Visit Start Time 14:30 Visit Stop Time 15:30 Total Visit Minutes 65 Visit Number 6 Number of PATTERNMAKER PLASTICS Visits 0 Evaluation Information Evaluation Date 06/19/18 PT-OP-B Current Condition Start: 06/19/18 14:30 Freq: Status: Active Protocol: Document 06/19/18 14:30 SAK (Rec: 06/19/18 15:40 SAK [id number]) Current Condition History of Current Condition Onset Date 30 yrs History of Current Condition Unknown cause of lymphedema; thought might have something to do with botched vasectomy which he had shortly before vasectomy. Also reports cartilage removed from right knee. Recent surgery right foot due to peroneal tendon tear. Lymphedema initially severe with exacerbations every 2 -4 yrs. Has been hospitalized for cellulitis, most recently as OP for IV medications. Has been losing weight (12# so far, planning for 25#), wants more attention given to his leg to reduce edema further to allow him to tolerate more activity . Has 2 pair of new custom stocking; thigh high. 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 Prior Treatments and Tests Prior lymphedema massage, exercise. No aquatic therapy Prior Functional Status Baseline Function- ADL's Modified Independent Baseline Function- Mobility Modified Independent Current Functional Impairments (Reported) Functional Limitations- Mobility/Gait indep but limited due to heaviness in right LE Functional Limitations- Work/School indep, wears compression stockings but swells as day progresses Functional Limitations- Recreation/ Limited due to heaviness in Hobbies right LE PT-OP-C Subjective Start: 06/19/18 14:30 Freq: Status: Active Protocol: Document 08/08/18 14:28 SAK (Rec: 08/08/18 15:47 SAK [id number]) OP-PT Subjective Patient Comments Patient Comments Swelling decreased except with increase in temperature outside, ankle feeling more stable PT-OP-F Manual Assessment Start: 06/19/18 14:30 Freq: Status: Active Protocol: Document 06/19/18 14:30 SAK (Rec: 06/20/18 10:32 SAK [id number]) Manual Assessments Soft Tissue Assessment Soft Tissue Mobility Assessment No palpable fibrosis right LE PT-OP-J Posture/Palpation/Skin Start: 06/19/18 14:30 Freq: Status: Active Protocol: Document 06/19/18 14:30 SAK (Rec: 06/20/18 10:32 SAK [id number]) Palpation Assessment Location right LE Palpation Findings Edema Palpation Details no increased warmth or tenderness Skin Assessment Edema Assessment right LE Edema Type Pitting Edema Degree 3+ Edema Appearance Puffy Subjective Edema Description Tightness PT-OP-K Range of Motion Start: 06/19/18 14:30 Freq: Status: Active Protocol: Document 06/19/18 14:30 SAK (Rec: 06/21/18 08:39 SAK [id number]) Hip Goniometric Range of Motion Hip jozef Hip ROM WFL Yes Knee Goniometric Range of Motion Knee jozef Knee ROM WFL Yes Ankle and Foot Goniometric Range of Motion Ankle and Foot right Dorsiflexion with Knee Flexed 5 Dorsiflexion with Knee Extended 2 Plantarflexion 35 Inversion 15 Eversion 10 left Dorsiflexion with Knee Flexed 10 Dorsiflexion with Knee Extended 5 Plantarflexion 50 Inversion 30 Eversion 25 Ankle and Foot ROM Limitations ROM Limitations Soft Tissue Tightness Muscle Weakness PT-OP-M Strength Start: 06/19/18 14:30 Freq: Status: Active Protocol: Document 06/19/18 14:30 [facility] (Rec: 06/21/18 08:39 [facility] [id number]) Hip Strength Hip Manual Muscle Testing jozef Flexion (L2) 4+ Good+ Extension (S1) 4+ Good+ Abduction 4+ Good+ Adduction 4+ Good+ External Rotation 4+ Good+ Internal Rotation 4+ Good+ Knee Strength Knee Manual Muscle Testing jozef Flexion (S2) 5 Normal Extension (L3) 5 Normal Ankle/Foot Strength Ankle and Foot Manual Muscle Testing Right Dorsiflexion (L4) 4 Good Plantarflexion (S1) 4 Good Inversion 4- Good- Eversion (S1) 4- Good- Left Dorsiflexion (L4) 4+ Good+ Plantarflexion (S1) 5 Normal Inversion 5 Normal Eversion (S1) 5 Normal PT-OP-N Lymphedema Start: 06/19/18 14:30 Freq: Status: Active Protocol: Document 08/08/18 14:28 [facility] (Rec: 08/08/18 15:47 [facility] [id number]) Lymphedema Measurements Lower Extremity Circumference Measurements right LE MT Heads 27.2 cm Medial Malleolus 30.7 cm 10 cm From Medial Malleolus 33 cm 20 cm From Medial Malleolus 39.6 cm 30 cm From Medial Malleolus 39.6 cm 40 cm From Medial Malleolus 38 cm 50 cm From Medial Malleolus 41.9 cm 60 cm From Medial Malleolus 48.1 cm 70 cm From Medial Malleolus 53.6 cm PT-OP-Q Treatments Start: 06/19/18 14:30 Freq: Status: Active Protocol: Document 08/08/18 14:28 [facility] (Rec: 08/08/18 15:47 [facility] [id number]) Cardio Equipment Recumbent Elliptical (BiodIntrinsic-ID) Duration (Minutes) 10 Resistance 3.0 Seat Position 9 Therapeutic Exercises Standing Exercises BAPS Standing Exercise Name fwd/bck, side, circles Equipment Used BAPS L4 ankle df/pf Equipment Used RAMON Reps/Minutes 10x SLS Equipment Used black foam Reps/Minutes 3x ea BOSU Standing Exercise Name standing bal, walk in place, squat, side step-overs Reps/Minutes 17 min Comments added flat side bal and wt shifts, SLS both sides HC stretch Equipment Used RAMON Reps/Minutes 2x Comments jozef and unil Manual Therapy Treatment Soft Tissue Mobilization scar right ankle Mobilization Type Rolling Strumming Body Position Supine Lymphedema Treatment Manual Lymphatic Drainage Location right LE Duration 30 Lymphedema Wrapping Other compression stockings PT-OP-T Assessment and Plan Start: 06/19/18 14:30 Freq: Status: Active Protocol: Document 08/08/18 14:28 [facility] (Rec: 08/08/18 15:47 [facility] [id number]) Physical Therapy Assessment Goals decreased scar mobility right LE Assisted Goal (LTG) scar mobility right foot WNL LTG Duration 09/18/18 lymphedema life impact scale 56% Short Term Goal (STG) Decrease lymphedema life impact scale to 45 STG Duration 07/19/18 Assisted Goal (LTG) Decrase lymphedema life impact scale to no greater than 30% to allow patient to increase his activity level and return to some of his prior activities including hiking. LTG Duration 09/18/18 decrease ROM and strength right foot/ankle Short Term Goal (STG) Instruct in ROM and strengthening ex right foot and ankle STG Duration 07/19/18 Assisted Goal (LTG) right ankle ROM and strength WNL LTG Duration 09/18/18 lymphedema right LE Short Term Goal (STG) decrease circumferential measurements right LE by 1 cm STG Duration 07/19/18 Printed Circuit Layout Taper Goal (LTG) Decrease and stabilize right LE lymphedema (no increase or decrease greater than 1 cm over the course of 1 wk) and assure patient independent with self-care and has appropriate compression stockings for long-term care. Consider lymphedema pump. LTG Duration 09/18/18 Progress Towards Goals Progress Towards Goals Progressing Toward Goals Assessment Summary Assessment Decreased circumferential measurements, improving ankle mobility and strength. Recommend continued PT. Physical Therapy Plan Frequency and Duration Frequency of Treatment 2x/Week Duration of Treatment 12 wks Plan of Care Start Date 06/19/18 Plan of Care End Date 09/18/18 Therapeutic Interventions Therapeutic Interventions Aquatic Therapy Home Exercise Program Lymphedema Management Manual Therapy Self-Care/Home Management Soft Tissue Mobilization Therapeutic Activities Therapeutic Exercises Next Visit Focus/Plan Next Note Type Treatment Note Next Visit Plan Continue PT per POC.
--- NOTE | 2018-08-14 14:14 | PT.OTN ---
Current Diagnoses Lymphedema, not elsewhere classified (08/14/18) Pain in right hip (08/14/18) Pain in left hip (08/14/18) Physical Therapy Treatment Note PT-OP-A Visit Information Start: 06/19/18 14:30 Freq: Status: Active Protocol: Document 08/14/18 13:00 SAK (Rec: 08/14/18 14:14 SAK [id number]) Out-Patient Physical Therapy Visit Information Visit Information Visit Type Treatment Note Visit Start Time 13:00 Visit Stop Time 14:05 Total Visit Minutes 65 Visit Number 7 Number of CUE SELECTOR Visits 0 Evaluation Information Evaluation Date 06/19/18 PT-OP-B Current Condition Start: 06/19/18 14:30 Freq: Status: Active Protocol: Document 06/19/18 14:30 SAK (Rec: 06/19/18 15:40 SAK [id number]) Current Condition History of Current Condition Onset Date 30 yrs History of Current Condition Unknown cause of lymphedema; thought might have something to do with botched vasectomy which he had shortly before vasectomy. Also reports cartilage removed from right knee. Recent surgery right foot due to peroneal tendon tear. Lymphedema initially severe with exacerbations every 2 -4 yrs. Has been hospitalized for cellulitis, most recently as OP for IV medications. Has been losing weight (12# so far, planning for 25#), wants more attention given to his leg to reduce edema further to allow him to tolerate more activity . Has 2 pair of new custom stocking; thigh high. 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 Prior Treatments and Tests Prior lymphedema massage, exercise. No aquatic therapy Prior Functional Status Baseline Function- ADL's Modified Independent Baseline Function- Mobility Modified Independent Current Functional Impairments (Reported) Functional Limitations- Mobility/Gait indep but limited due to heaviness in right LE Functional Limitations- Work/School indep, wears compression stockings but swells as day progresses Functional Limitations- Recreation/ Limited due to heaviness in Hobbies right LE PT-OP-C Subjective Start: 06/19/18 14:30 Freq: Status: Active Protocol: Document 08/14/18 13:00 SAK (Rec: 08/14/18 14:14 SAK [id number]) OP-PT Subjective Patient Comments Patient Comments Increased swelling after dancing at his 68th bday alliance party over weekend. PT-OP-F Manual Assessment Start: 06/19/18 14:30 Freq: Status: Active Protocol: Document 06/19/18 14:30 SAK (Rec: 06/20/18 10:32 SAK [id number]) Manual Assessments Soft Tissue Assessment Soft Tissue Mobility Assessment No palpable fibrosis right LE PT-OP-J Posture/Palpation/Skin Start: 06/19/18 14:30 Freq: Status: Active Protocol: Document 06/19/18 14:30 SAK (Rec: 06/20/18 10:32 SAK [id number]) Palpation Assessment Location right LE Palpation Findings Edema Palpation Details no increased warmth or tenderness Skin Assessment Edema Assessment right LE Edema Type Pitting Edema Degree 3+ Edema Appearance Puffy Subjective Edema Description Tightness PT-OP-K Range of Motion Start: 06/19/18 14:30 Freq: Status: Active Protocol: Document 06/19/18 14:30 SAK (Rec: 06/21/18 08:39 SAK [id number]) Hip Goniometric Range of Motion Hip jozef Hip ROM WFL Yes Knee Goniometric Range of Motion Knee jozef Knee ROM WFL Yes Ankle and Foot Goniometric Range of Motion Ankle and Foot right Dorsiflexion with Knee Flexed 5 Dorsiflexion with Knee Extended 2 Plantarflexion 35 Inversion 15 Eversion 10 left Dorsiflexion with Knee Flexed 10 Dorsiflexion with Knee Extended 5 Plantarflexion 50 Inversion 30 Eversion 25 Ankle and Foot ROM Limitations ROM Limitations Soft Tissue Tightness Muscle Weakness PT-OP-M Strength Start: 06/19/18 14:30 Freq: Status: Active Protocol: Document 06/19/18 14:30 [facility] (Rec: 06/21/18 08:39 [facility] [id number]) Hip Strength Hip Manual Muscle Testing jozef Flexion (L2) 4+ Good+ Extension (S1) 4+ Good+ Abduction 4+ Good+ Adduction 4+ Good+ External Rotation 4+ Good+ Internal Rotation 4+ Good+ Knee Strength Knee Manual Muscle Testing jozef Flexion (S2) 5 Normal Extension (L3) 5 Normal Ankle/Foot Strength Ankle and Foot Manual Muscle Testing Right Dorsiflexion (L4) 4 Good Plantarflexion (S1) 4 Good Inversion 4- Good- Eversion (S1) 4- Good- Left Dorsiflexion (L4) 4+ Good+ Plantarflexion (S1) 5 Normal Inversion 5 Normal Eversion (S1) 5 Normal PT-OP-N Lymphedema Start: 06/19/18 14:30 Freq: Status: Active Protocol: Document 08/08/18 14:28 [facility] (Rec: 08/08/18 15:47 [facility] [id number]) Lymphedema Measurements Lower Extremity Circumference Measurements right LE MT Heads 27.2 cm Medial Malleolus 30.7 cm 10 cm From Medial Malleolus 33 cm 20 cm From Medial Malleolus 39.6 cm 30 cm From Medial Malleolus 39.6 cm 40 cm From Medial Malleolus 38 cm 50 cm From Medial Malleolus 41.9 cm 60 cm From Medial Malleolus 48.1 cm 70 cm From Medial Malleolus 53.6 cm PT-OP-Q Treatments Start: 06/19/18 14:30 Freq: Status: Active Protocol: Document 08/14/18 13:00 [facility] (Rec: 08/14/18 14:14 [facility] [id number]) Cardio Equipment Bicycle (Upright) Duration (Minutes) 10 Resistance 4 Seat Position 7 Gym Equipment Shuttle Recovery Unilateral Squats Resistance 62 Shuttle Recovery Platform Unstable Bilateral Squats Resistance 87 Shuttle Recovery Platform Unstable Therapeutic Exercises Standing Exercises tandem stand Equipment Used 1/2 roll Reps/Minutes 2 min BAPS Standing Exercise Name fwd/bck, side, circles Equipment Used BAPS L4 ankle df/pf Equipment Used RAMON Reps/Minutes 10x BOSU Standing Exercise Name standing bal, walk in place, squat, side step-overs Reps/Minutes 17 min Comments added flat side bal and wt shifts, SLS both sides HC stretch Equipment Used RAMON Reps/Minutes 2x Comments jozef and unil Manual Therapy Treatment Soft Tissue Mobilization scar right ankle Mobilization Type Rolling Strumming Body Position Supine Lymphedema Treatment Manual Lymphatic Drainage Location right LE Duration 30 Lymphedema Wrapping Other compression stockings PT-OP-T Assessment and Plan Start: 06/19/18 14:30 Freq: Status: Active Protocol: Document 08/14/18 13:00 [facility] (Rec: 08/14/18 14:14 [facility] [id number]) Physical Therapy Assessment Goals decreased scar mobility right LE Intermediate Goal (LTG) scar mobility right foot WNL LTG Duration 09/18/18 lymphedema life impact scale 56% Short Term Goal (STG) Decrease lymphedema life impact scale to 45 STG Duration 07/19/18 Sales Merchandiser Goal (LTG) Decrase lymphedema life impact scale to no greater than 30% to allow patient to increase his activity level and return to some of his prior activities including hiking. LTG Duration 09/18/18 decrease ROM and strength right foot/ankle Short Term Goal (STG) Instruct in ROM and strengthening ex right foot and ankle STG Duration 07/19/18 Intermediate Goal (LTG) right ankle ROM and strength WNL LTG Duration 09/18/18 lymphedema right LE Short Term Goal (STG) decrease circumferential measurements right LE by 1 cm STG Duration 07/19/18 Sales Merchandiser Goal (LTG) Decrease and stabilize right LE lymphedema (no increase or decrease greater than 1 cm over the course of 1 wk) and assure patient independent with self-care and has appropriate compression stockings for long-term care. Consider lymphedema pump. LTG Duration 09/18/18 Assessment Summary Assessment Observable increase in edema today. Tolerating increased in ther ex well. Physical Therapy Plan Frequency and Duration Frequency of Treatment 2x/Week Duration of Treatment 12 wks Plan of Care Start Date 06/19/18 Plan of Care End Date 09/18/18 Therapeutic Interventions Therapeutic Interventions Aquatic Therapy Home Exercise Program Lymphedema Management Manual Therapy Self-Care/Home Management Soft Tissue Mobilization Therapeutic Activities Therapeutic Exercises Next Visit Focus/Plan Next Note Type Treatment Note Next Visit Plan Remeasure circumference, further exercise progression as tolerated.
--- NOTE | 2018-08-16 15:45 | PT.OTN ---
Current Diagnoses Lymphedema, not elsewhere classified (08/16/18) Pain in right hip (08/16/18) Pain in left hip (08/16/18) Physical Therapy Treatment Note PT-OP-A Visit Information Start: 06/19/18 14:30 Freq: Status: Active Protocol: Document 08/16/18 14:33 SAK (Rec: 08/16/18 15:45 SAK [id number]) Out-Patient Physical Therapy Visit Information Visit Information Visit Type Treatment Note Visit Start Time 14:30 Visit Stop Time 15:35 Total Visit Minutes 65 Visit Number 8 Number of SENIOR INVESTMENT ANALYST Visits 0 Evaluation Information Evaluation Date 06/19/18 PT-OP-B Current Condition Start: 06/19/18 14:30 Freq: Status: Active Protocol: Document 06/19/18 14:30 SAK (Rec: 06/19/18 15:40 SAK [id number]) Current Condition History of Current Condition Onset Date 30 yrs History of Current Condition Unknown cause of lymphedema; thought might have something to do with botched vasectomy which he had shortly before vasectomy. Also reports cartilage removed from right knee. Recent surgery right foot due to peroneal tendon tear. Lymphedema initially severe with exacerbations every 2 -4 yrs. Has been hospitalized for cellulitis, most recently as OP for IV medications. Has been losing weight (12# so far, planning for 25#), wants more attention given to his leg to reduce edema further to allow him to tolerate more activity . Has 2 pair of new custom stocking; thigh high. 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 Prior Treatments and Tests Prior lymphedema massage, exercise. No aquatic therapy Prior Functional Status Baseline Function- ADL's Modified Independent Baseline Function- Mobility Modified Independent Current Functional Impairments (Reported) Functional Limitations- Mobility/Gait indep but limited due to heaviness in right LE Functional Limitations- Work/School indep, wears compression stockings but swells as day progresses Functional Limitations- Recreation/ Limited due to heaviness in Hobbies right LE PT-OP-C Subjective Start: 06/19/18 14:30 Freq: Status: Active Protocol: Document 08/16/18 14:33 SAK (Rec: 08/16/18 15:45 SAK [id number]) OP-PT Subjective Patient Comments Patient Comments no new c/o PT-OP-F Manual Assessment Start: 06/19/18 14:30 Freq: Status: Active Protocol: Document 06/19/18 14:30 SAK (Rec: 06/20/18 10:32 [facility] [id number]) Manual Assessments Soft Tissue Assessment Soft Tissue Mobility Assessment No palpable fibrosis right LE PT-OP-J Posture/Palpation/Skin Start: 06/19/18 14:30 Freq: Status: Active Protocol: Document 06/19/18 14:30 SAK (Rec: 06/20/18 10:32 [facility] [id number]) Palpation Assessment Location right LE Palpation Findings Edema Palpation Details no increased warmth or tenderness Skin Assessment Edema Assessment right LE Edema Type Pitting Edema Degree 3+ Edema Appearance Puffy Subjective Edema Description Tightness PT-OP-K Range of Motion Start: 06/19/18 14:30 Freq: Status: Active Protocol: Document 06/19/18 14:30 [facility] (Rec: 06/21/18 08:39 [facility] [id number]) Hip Goniometric Range of Motion Hip jozef Hip ROM WFL Yes Knee Goniometric Range of Motion Knee jozef Knee ROM WFL Yes Ankle and Foot Goniometric Range of Motion Ankle and Foot right Dorsiflexion with Knee Flexed 5 Dorsiflexion with Knee Extended 2 Plantarflexion 35 Inversion 15 Eversion 10 left Dorsiflexion with Knee Flexed 10 Dorsiflexion with Knee Extended 5 Plantarflexion 50 Inversion 30 Eversion 25 Ankle and Foot ROM Limitations ROM Limitations Soft Tissue Tightness Muscle Weakness PT-OP-M Strength Start: 06/19/18 14:30 Freq: Status: Active Protocol: Document 06/19/18 14:30 [facility] (Rec: 06/21/18 08:39 [facility] [id number]) Hip Strength Hip Manual Muscle Testing jozef Flexion (L2) 4+ Good+ Extension (S1) 4+ Good+ Abduction 4+ Good+ Adduction 4+ Good+ External Rotation 4+ Good+ Internal Rotation 4+ Good+ Knee Strength Knee Manual Muscle Testing jozef Flexion (S2) 5 Normal Extension (L3) 5 Normal Ankle/Foot Strength Ankle and Foot Manual Muscle Testing Right Dorsiflexion (L4) 4 Good Plantarflexion (S1) 4 Good Inversion 4- Good- Eversion (S1) 4- Good- Left Dorsiflexion (L4) 4+ Good+ Plantarflexion (S1) 5 Normal Inversion 5 Normal Eversion (S1) 5 Normal PT-OP-N Lymphedema Start: 06/19/18 14:30 Freq: Status: Active Protocol: Document 08/16/18 14:33 [facility] (Rec: 08/16/18 15:45 [facility] [id number]) Lymphedema Measurements Lower Extremity Circumference Measurements right LE MT Heads 27.2 cm Medial Malleolus 31.6 cm 10 cm From Medial Malleolus 33.2 cm 20 cm From Medial Malleolus 39.6 cm 30 cm From Medial Malleolus 38.8 cm 40 cm From Medial Malleolus 38.1 cm 50 cm From Medial Malleolus 42.5 cm 60 cm From Medial Malleolus 47.5 cm 70 cm From Medial Malleolus 52.9 cm PT-OP-Q Treatments Start: 06/19/18 14:30 Freq: Status: Active Protocol: Document 08/16/18 14:33 [facility] (Rec: 08/16/18 15:45 [facility] [id number]) Cardio Equipment Bicycle (Upright) Duration (Minutes) 10 Resistance 7 Seat Position 7 Gym Equipment Shuttle Recovery Unilateral Squats Resistance 62 Shuttle Recovery Platform Unstable Bilateral Squats Resistance 87 Shuttle Recovery Platform Unstable Therapeutic Exercises Supine Exercises ankle df, pf, inv, ev Resistance L3 TB Reps/Minutes 10x Standing Exercises tandem stand Equipment Used 1/2 roll Reps/Minutes 2 min BAPS Standing Exercise Name fwd/bck, side, circles Equipment Used BAPS L4 ankle df/pf Equipment Used RAMON Reps/Minutes 10x SLS Equipment Used black foam Reps/Minutes 3x ea BOSU Standing Exercise Name standing bal, walk in place, squat, side step-overs Reps/Minutes 17 min Comments added flat side bal and wt shifts, SLS both sides HC stretch Equipment Used RAMON Reps/Minutes 2x Comments jozef and unil Manual Therapy Treatment Soft Tissue Mobilization scar right ankle Mobilization Type Rolling Strumming Body Position Supine Lymphedema Treatment Manual Lymphatic Drainage Location right LE Duration 30 Lymphedema Wrapping Other did not have today; being laundered PT-OP-T Assessment and Plan Start: 06/19/18 14:30 Freq: Status: Active Protocol: Document 08/16/18 14:33 [facility] (Rec: 08/16/18 15:45 [facility] [id number]) Physical Therapy Assessment Goals decreased scar mobility right LE Penitentiary Goal (LTG) scar mobility right foot WNL LTG Duration 09/18/18 lymphedema life impact scale 56% Short Term Goal (STG) Decrease lymphedema life impact scale to 45 STG Duration 07/19/18 Gyn Goal (LTG) Decrase lymphedema life impact scale to no greater than 30% to allow patient to increase his activity level and return to some of his prior activities including hiking. LTG Duration 09/18/18 decrease ROM and strength right foot/ankle Short Term Goal (STG) Instruct in ROM and strengthening ex right foot and ankle STG Duration 07/19/18 Penitentiary Goal (LTG) right ankle ROM and strength WNL LTG Duration 09/18/18 lymphedema right LE Short Term Goal (STG) decrease circumferential measurements right LE by 1 cm STG Duration 07/19/18 Penitentiary Goal (LTG) Decrease and stabilize right LE lymphedema (no increase or decrease greater than 1 cm over the course of 1 wk) and assure patient independent with self-care and has appropriate compression stockings for long-term care. Consider lymphedema pump. LTG Duration 09/18/18 Progress Towards Goals Progress Towards Goals Progressing Toward Goals Assessment Summary Assessment Patient circumferfential measurements stable or decreased. Patient weakest with ankle plantarflexion. Physical Therapy Plan Frequency and Duration Frequency of Treatment 2x/Week Duration of Treatment 12 wks Plan of Care Start Date 06/19/18 Plan of Care End Date 09/18/18 Therapeutic Interventions Therapeutic Interventions Aquatic Therapy Home Exercise Program Lymphedema Management Manual Therapy Self-Care/Home Management Soft Tissue Mobilization Therapeutic Activities Therapeutic Exercises Next Visit Focus/Plan Next Note Type Treatment Note Next Visit Plan Continue PT for ankle ROM and strengthening, lymphedema management.
--- NOTE | 2018-08-20 15:52 | PT.OTN ---
Current Diagnoses Lymphedema, not elsewhere classified (08/20/18) Pain in right hip (08/20/18) Pain in left hip (08/20/18) Physical Therapy Treatment Note PT-OP-A Visit Information Start: 06/19/18 14:30 Freq: Status: Active Protocol: Document 08/20/18 14:36 SAK (Rec: 08/20/18 15:06 SAK [id number]) Out-Patient Physical Therapy Visit Information Visit Information Visit Type Treatment Note Visit Start Time 14:30 Visit Stop Time 15:35 Total Visit Minutes 65 Visit Number 9 Number of WATCH BAND ASSEMBLER Visits 0 Evaluation Information Evaluation Date 06/19/18 PT-OP-B Current Condition Start: 06/19/18 14:30 Freq: Status: Active Protocol: Document 06/19/18 14:30 SAK (Rec: 06/19/18 15:40 SAK [id number]) Current Condition History of Current Condition Onset Date 30 yrs History of Current Condition Unknown cause of lymphedema; thought might have something to do with botched vasectomy which he had shortly before vasectomy. Also reports cartilage removed from right knee. Recent surgery right foot due to peroneal tendon tear. Lymphedema initially severe with exacerbations every 2 -4 yrs. Has been hospitalized for cellulitis, most recently as OP for IV medications. Has been losing weight (12# so far, planning for 25#), wants more attention given to his leg to reduce edema further to allow him to tolerate more activity . Has 2 pair of new custom stocking; thigh high. 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 Prior Treatments and Tests Prior lymphedema massage, exercise. No aquatic therapy Prior Functional Status Baseline Function- ADL's Modified Independent Baseline Function- Mobility Modified Independent Current Functional Impairments (Reported) Functional Limitations- Mobility/Gait indep but limited due to heaviness in right LE Functional Limitations- Work/School indep, wears compression stockings but swells as day progresses Functional Limitations- Recreation/ Limited due to heaviness in Hobbies right LE PT-OP-C Subjective Start: 06/19/18 14:30 Freq: Status: Active Protocol: Document 08/20/18 14:36 SAK (Rec: 08/20/18 15:52 SAK [id number]) OP-PT Subjective Patient Comments Patient Comments Reports increased edema with heat yesterday and today. PT-OP-F Manual Assessment Start: 06/19/18 14:30 Freq: Status: Active Protocol: Document 06/19/18 14:30 SAK (Rec: 06/20/18 10:32 SAK [id number]) Manual Assessments Soft Tissue Assessment Soft Tissue Mobility Assessment No palpable fibrosis right LE PT-OP-J Posture/Palpation/Skin Start: 06/19/18 14:30 Freq: Status: Active Protocol: Document 06/19/18 14:30 SAK (Rec: 06/20/18 10:32 SAK [id number]) Palpation Assessment Location right LE Palpation Findings Edema Palpation Details no increased warmth or tenderness Skin Assessment Edema Assessment right LE Edema Type Pitting Edema Degree 3+ Edema Appearance Puffy Subjective Edema Description Tightness PT-OP-K Range of Motion Start: 06/19/18 14:30 Freq: Status: Active Protocol: Document 06/19/18 14:30 SAK (Rec: 06/21/18 08:39 [facility] [id number]) Hip Goniometric Range of Motion Hip jozef Hip ROM WFL Yes Knee Goniometric Range of Motion Knee jozef Knee ROM WFL Yes Ankle and Foot Goniometric Range of Motion Ankle and Foot right Dorsiflexion with Knee Flexed 5 Dorsiflexion with Knee Extended 2 Plantarflexion 35 Inversion 15 Eversion 10 left Dorsiflexion with Knee Flexed 10 Dorsiflexion with Knee Extended 5 Plantarflexion 50 Inversion 30 Eversion 25 Ankle and Foot ROM Limitations ROM Limitations Soft Tissue Tightness Muscle Weakness PT-OP-M Strength Start: 06/19/18 14:30 Freq: Status: Active Protocol: Document 06/19/18 14:30 SAK (Rec: 06/21/18 08:39 [facility] [id number]) Hip Strength Hip Manual Muscle Testing jozef Flexion (L2) 4+ Good+ Extension (S1) 4+ Good+ Abduction 4+ Good+ Adduction 4+ Good+ External Rotation 4+ Good+ Internal Rotation 4+ Good+ Knee Strength Knee Manual Muscle Testing jozef Flexion (S2) 5 Normal Extension (L3) 5 Normal Ankle/Foot Strength Ankle and Foot Manual Muscle Testing Right Dorsiflexion (L4) 4 Good Plantarflexion (S1) 4 Good Inversion 4- Good- Eversion (S1) 4- Good- Left Dorsiflexion (L4) 4+ Good+ Plantarflexion (S1) 5 Normal Inversion 5 Normal Eversion (S1) 5 Normal PT-OP-N Lymphedema Start: 06/19/18 14:30 Freq: Status: Active Protocol: Document 08/16/18 14:33 [facility] (Rec: 08/16/18 15:45 [facility] [id number]) Lymphedema Measurements Lower Extremity Circumference Measurements right LE MT Heads 27.2 cm Medial Malleolus 31.6 cm 10 cm From Medial Malleolus 33.2 cm 20 cm From Medial Malleolus 39.6 cm 30 cm From Medial Malleolus 38.8 cm 40 cm From Medial Malleolus 38.1 cm 50 cm From Medial Malleolus 42.5 cm 60 cm From Medial Malleolus 47.5 cm 70 cm From Medial Malleolus 52.9 cm PT-OP-Q Treatments Start: 06/19/18 14:30 Freq: Status: Active Protocol: Document 08/20/18 14:36 [facility] (Rec: 08/20/18 15:06 [facility] [id number]) Cardio Equipment Bicycle (Upright) Duration (Minutes) 10 Resistance 7 Seat Position 7 Gym Equipment Shuttle Balance chains red Details bal NBOS, stagger, SLS f/b and side Reps/Duration 10' Comments throw weighted ball into rebounder with standing bal NBOS and staggered stance Therapeutic Exercises Standing Exercises ankle df/pf Equipment Used RAMON Reps/Minutes 10x HC stretch Equipment Used RAMON Reps/Minutes 2x Comments jozef and unil Therapeutic Activity Therapeutic Activity obstacle course for ankle stability Name bal pods, balance beam, bal discs Reps/Minutes 5' Manual Therapy Treatment Soft Tissue Mobilization scar right ankle Mobilization Type Rolling Strumming Body Position Supine Lymphedema Treatment Manual Lymphatic Drainage Location right LE Duration 30 Lymphedema Wrapping Other compression stockings PT-OP-T Assessment and Plan Start: 06/19/18 14:30 Freq: Status: Active Protocol: Document 08/20/18 14:36 [facility] (Rec: 08/20/18 15:06 [facility] [id number]) Physical Therapy Assessment Goals decreased scar mobility right LE Product Grader Goal (LTG) scar mobility right foot WNL LTG Duration 09/18/18 lymphedema life impact scale 56% Short Term Goal (STG) Decrease lymphedema life impact scale to 45 STG Duration 07/19/18 Prison Goal (LTG) Decrase lymphedema life impact scale to no greater than 30% to allow patient to increase his activity level and return to some of his prior activities including hiking. LTG Duration 09/18/18 decrease ROM and strength right foot/ankle Short Term Goal (STG) Instruct in ROM and strengthening ex right foot and ankle STG Duration 07/19/18 Prison Goal (LTG) right ankle ROM and strength WNL LTG Duration 09/18/18 lymphedema right LE Short Term Goal (STG) decrease circumferential measurements right LE by 1 cm STG Duration 07/19/18 Product Grader Goal (LTG) Decrease and stabilize right LE lymphedema (no increase or decrease greater than 1 cm over the course of 1 wk) and assure patient independent with self-care and has appropriate compression stockings for long-term care. Consider lymphedema pump. LTG Duration 09/18/18 Assessment Summary Assessment Improving compliance with ankle pf strengthening. Discussed compression level of compression stocking and potential for trying 30-40 mm HG. Physical Therapy Plan Frequency and Duration Frequency of Treatment 2x/Week Duration of Treatment 12 wks Plan of Care Start Date 06/19/18 Plan of Care End Date 09/18/18 Therapeutic Interventions Therapeutic Interventions Aquatic Therapy Home Exercise Program Lymphedema Management Manual Therapy Self-Care/Home Management Soft Tissue Mobilization Therapeutic Activities Therapeutic Exercises Next Visit Focus/Plan Next Note Type Treatment Note Next Visit Plan Continue PT for ankle ROM and strengthening, lymphedema management.
--- NOTE | 2018-08-22 16:26 | PT.OTN ---
Current Diagnoses Lymphedema, not elsewhere classified (08/22/18) Pain in right hip (08/22/18) Pain in left hip (08/22/18) Physical Therapy Treatment Note PT-OP-A Visit Information Start: 06/19/18 14:30 Freq: Status: Active Protocol: Document 08/22/18 15:10 SAK (Rec: 08/22/18 15:32 SAK [id number]) Out-Patient Physical Therapy Visit Information Visit Information Visit Type Treatment Note Visit Start Time 15:00 Visit Stop Time 16:00 Total Visit Minutes 60 Visit Number 10 Number of ASSISTANT GOLF COACH Visits 0 Evaluation Information Evaluation Date 06/19/18 PT-OP-B Current Condition Start: 06/19/18 14:30 Freq: Status: Active Protocol: Document 06/19/18 14:30 SAK (Rec: 06/19/18 15:40 SAK [id number]) Current Condition History of Current Condition Onset Date 30 yrs History of Current Condition Unknown cause of lymphedema; thought might have something to do with botched vasectomy which he had shortly before vasectomy. Also reports cartilage removed from right knee. Recent surgery right foot due to peroneal tendon tear. Lymphedema initially severe with exacerbations every 2 -4 yrs. Has been hospitalized for cellulitis, most recently as OP for IV medications. Has been losing weight (12# so far, planning for 25#), wants more attention given to his leg to reduce edema further to allow him to tolerate more activity . Has 2 pair of new custom stocking; thigh high. 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 Prior Treatments and Tests Prior lymphedema massage, exercise. No aquatic therapy Prior Functional Status Baseline Function- ADL's Modified Independent Baseline Function- Mobility Modified Independent Current Functional Impairments (Reported) Functional Limitations- Mobility/Gait indep but limited due to heaviness in right LE Functional Limitations- Work/School indep, wears compression stockings but swells as day progresses Functional Limitations- Recreation/ Limited due to heaviness in Hobbies right LE PT-OP-C Subjective Start: 06/19/18 14:30 Freq: Status: Active Protocol: Document 08/22/18 15:10 SAK (Rec: 08/22/18 15:32 SAK [id number]) OP-PT Subjective Patient Comments Patient Comments No new c/o PT-OP-F Manual Assessment Start: 06/19/18 14:30 Freq: Status: Active Protocol: Document 06/19/18 14:30 SAK (Rec: 06/20/18 10:32 [facility] [id number]) Manual Assessments Soft Tissue Assessment Soft Tissue Mobility Assessment No palpable fibrosis right LE PT-OP-J Posture/Palpation/Skin Start: 06/19/18 14:30 Freq: Status: Active Protocol: Document 06/19/18 14:30 SAK (Rec: 06/20/18 10:32 [facility] [id number]) Palpation Assessment Location right LE Palpation Findings Edema Palpation Details no increased warmth or tenderness Skin Assessment Edema Assessment right LE Edema Type Pitting Edema Degree 3+ Edema Appearance Puffy Subjective Edema Description Tightness PT-OP-K Range of Motion Start: 06/19/18 14:30 Freq: Status: Active Protocol: Document 06/19/18 14:30 [facility] (Rec: 06/21/18 08:39 [facility] [id number]) Hip Goniometric Range of Motion Hip jozef Hip ROM WFL Yes Knee Goniometric Range of Motion Knee jozef Knee ROM WFL Yes Ankle and Foot Goniometric Range of Motion Ankle and Foot right Dorsiflexion with Knee Flexed 5 Dorsiflexion with Knee Extended 2 Plantarflexion 35 Inversion 15 Eversion 10 left Dorsiflexion with Knee Flexed 10 Dorsiflexion with Knee Extended 5 Plantarflexion 50 Inversion 30 Eversion 25 Ankle and Foot ROM Limitations ROM Limitations Soft Tissue Tightness Muscle Weakness PT-OP-M Strength Start: 06/19/18 14:30 Freq: Status: Active Protocol: Document 06/19/18 14:30 [facility] (Rec: 06/21/18 08:39 [facility] [id number]) Hip Strength Hip Manual Muscle Testing jozef Flexion (L2) 4+ Good+ Extension (S1) 4+ Good+ Abduction 4+ Good+ Adduction 4+ Good+ External Rotation 4+ Good+ Internal Rotation 4+ Good+ Knee Strength Knee Manual Muscle Testing jozef Flexion (S2) 5 Normal Extension (L3) 5 Normal Ankle/Foot Strength Ankle and Foot Manual Muscle Testing Right Dorsiflexion (L4) 4 Good Plantarflexion (S1) 4 Good Inversion 4- Good- Eversion (S1) 4- Good- Left Dorsiflexion (L4) 4+ Good+ Plantarflexion (S1) 5 Normal Inversion 5 Normal Eversion (S1) 5 Normal PT-OP-N Lymphedema Start: 06/19/18 14:30 Freq: Status: Active Protocol: Document 08/22/18 15:10 [facility] (Rec: 08/22/18 16:26 [facility] [id number]) Lymphedema Measurements Lower Extremity Circumference Measurements right LE MT Heads 27.3 cm Medial Malleolus 30.2 cm 10 cm From Medial Malleolus 31.8 cm 20 cm From Medial Malleolus 39.2 cm 30 cm From Medial Malleolus 37.9 cm 40 cm From Medial Malleolus 38.8 cm 50 cm From Medial Malleolus 42.2 cm 60 cm From Medial Malleolus 48.5 cm 70 cm From Medial Malleolus 53.5 cm PT-OP-Q Treatments Start: 06/19/18 14:30 Freq: Status: Active Protocol: Document 08/22/18 15:10 [facility] (Rec: 08/22/18 15:32 [facility] [id number]) Cardio Equipment Elliptical Duration (Minutes) 8 Resistance 4 Gym Equipment Shuttle Recovery Unilateral Squats Resistance 62 Shuttle Recovery Platform Unstable Bilateral Squats Resistance 87 Shuttle Recovery Platform Unstable Shuttle Balance chains red Details bal NBOS, stagger, SLS f/b and side Reps/Duration 10' Comments throw weighted ball into rebounder with standing bal NBOS and staggered stance Therapeutic Exercises Standing Exercises ankle df/pf Equipment Used RAMON Reps/Minutes 10x HC stretch Equipment Used RAMON Reps/Minutes 2x Comments jozef and unil Manual Therapy Treatment Soft Tissue Mobilization scar right ankle Mobilization Type Rolling Strumming Body Position Supine Lymphedema Treatment Manual Lymphatic Drainage Location right LE Duration 30 Lymphedema Wrapping Other compression stockings PT-OP-T Assessment and Plan Start: 06/19/18 14:30 Freq: Status: Active Protocol: Document 08/22/18 15:10 [facility] (Rec: 08/22/18 15:32 [facility] [id number]) Physical Therapy Assessment Goals decreased scar mobility right LE Real Estate Firm Manager Goal (LTG) scar mobility right foot WNL LTG Duration 09/18/18 lymphedema life impact scale 56% Short Term Goal (STG) Decrease lymphedema life impact scale to 45 STG Duration 07/19/18 Group Home Goal (LTG) Decrase lymphedema life impact scale to no greater than 30% to allow patient to increase his activity level and return to some of his prior activities including hiking. LTG Duration 09/18/18 decrease ROM and strength right foot/ankle Short Term Goal (STG) Instruct in ROM and strengthening ex right foot and ankle STG Duration 07/19/18 Real Estate Firm Manager Goal (LTG) right ankle ROM and strength WNL LTG Duration 09/18/18 lymphedema right LE Short Term Goal (STG) decrease circumferential measurements right LE by 1 cm STG Duration 07/19/18 Group Home Goal (LTG) Decrease and stabilize right LE lymphedema (no increase or decrease greater than 1 cm over the course of 1 wk) and assure patient independent with self-care and has appropriate compression stockings for long-term care. Consider lymphedema pump. LTG Duration 09/18/18 Assessment Summary Assessment Improved strength right ankle, decreased circumferential measurements right LE. Physical Therapy Plan Frequency and Duration Frequency of Treatment 2x/Week Duration of Treatment 12 wks Plan of Care Start Date 06/19/18 Plan of Care End Date 09/18/18 Therapeutic Interventions Therapeutic Interventions Aquatic Therapy Home Exercise Program Lymphedema Management Manual Therapy Self-Care/Home Management Soft Tissue Mobilization Therapeutic Activities Therapeutic Exercises Next Visit Focus/Plan Next Note Type Treatment Note Next Visit Plan Continue PT for ankle ROM and strengthening, lymphedema management.
--- NOTE | 2018-08-24 16:00 | PT.OPPN ---
Current Diagnoses Lymphedema, not elsewhere classified (08/22/18) Pain in right hip (08/22/18) Pain in left hip (08/22/18) Physical Therapy Progress Note PT-OP-A Visit Information Start: 06/19/18 14:30 Freq: Status: Active Protocol: Document 08/22/18 15:10 SAK (Rec: 08/22/18 15:32 SAK [id number]) Out-Patient Physical Therapy Visit Information Visit Information Visit Type Treatment Note Visit Start Time 15:00 Visit Stop Time 16:00 Total Visit Minutes 60 Visit Number 10 Number of DIRECTOR CONSUMER AFFAIRS Visits 0 Evaluation Information Evaluation Date 06/19/18 PT-OP-B Current Condition Start: 06/19/18 14:30 Freq: Status: Active Protocol: Document 06/19/18 14:30 SAK (Rec: 06/19/18 15:40 SAK [id number]) Current Condition History of Current Condition Onset Date 30 yrs History of Current Condition Unknown cause of lymphedema; thought might have something to do with botched vasectomy which he had shortly before vasectomy. Also reports cartilage removed from right knee. Recent surgery right foot due to peroneal tendon tear. Lymphedema initially severe with exacerbations every 2 -4 yrs. Has been hospitalized for cellulitis, most recently as OP for IV medications. Has been losing weight (12# so far, planning for 25#), wants more attention given to his leg to reduce edema further to allow him to tolerate more activity . Has 2 pair of new custom stocking; thigh high. 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 Prior Treatments and Tests Prior lymphedema massage, exercise. No aquatic therapy Prior Functional Status Baseline Function- ADL's Modified Independent Baseline Function- Mobility Modified Independent Current Functional Impairments (Reported) Functional Limitations- Mobility/Gait indep but limited due to heaviness in right LE Functional Limitations- Work/School indep, wears compression stockings but swells as day progresses Functional Limitations- Recreation/ Limited due to heaviness in Hobbies right LE PT-OP-C Subjective Start: 06/19/18 14:30 Freq: Status: Active Protocol: Document 08/22/18 15:10 SAK (Rec: 08/22/18 15:32 SAK [id number]) OP-PT Subjective Patient Comments Patient Comments No new c/o PT-OP-F Manual Assessment Start: 06/19/18 14:30 Freq: Status: Active Protocol: Document 06/19/18 14:30 [facility] (Rec: 06/20/18 10:32 [facility] [id number]) Manual Assessments Soft Tissue Assessment Soft Tissue Mobility Assessment No palpable fibrosis right LE PT-OP-J Posture/Palpation/Skin Start: 06/19/18 14:30 Freq: Status: Active Protocol: Document 06/19/18 14:30 SAK (Rec: 06/20/18 10:32 [facility] [id number]) Palpation Assessment Location right LE Palpation Findings Edema Palpation Details no increased warmth or tenderness Skin Assessment Edema Assessment right LE Edema Type Pitting Edema Degree 3+ Edema Appearance Puffy Subjective Edema Description Tightness PT-OP-K Range of Motion Start: 06/19/18 14:30 Freq: Status: Active Protocol: Document 06/19/18 14:30 [facility] (Rec: 06/21/18 08:39 [facility] [id number]) Hip Goniometric Range of Motion Hip Measured in Degrees jozef Hip ROM WFL Yes Knee Goniometric Range of Motion Knee Measured in Degrees jozef Knee ROM WFL Yes Ankle and Foot Goniometric Range of Motion Ankle and Foot Measured in Degrees right Dorsiflexion with Knee Flexed 5 Dorsiflexion with Knee Extended 2 Plantarflexion 35 Inversion 15 Eversion 10 left Dorsiflexion with Knee Flexed 10 Dorsiflexion with Knee Extended 5 Plantarflexion 50 Inversion 30 Eversion 25 Ankle and Foot ROM Limitations ROM Limitations Soft Tissue Tightness Muscle Weakness PT-OP-M Strength Start: 06/19/18 14:30 Freq: Status: Active Protocol: Document 06/19/18 14:30 [facility] (Rec: 06/21/18 08:39 [facility] [id number]) Hip Strength Hip Manual Muscle Testing jozef Flexion (L2) 4+ Good+ Extension (S1) 4+ Good+ Abduction 4+ Good+ Adduction 4+ Good+ External Rotation 4+ Good+ Internal Rotation 4+ Good+ Knee Strength Knee Manual Muscle Testing jozef Flexion (S2) 5 Normal Extension (L3) 5 Normal Ankle/Foot Strength Ankle and Foot Manual Muscle Testing Right Dorsiflexion (L4) 4 Good Plantarflexion (S1) 4 Good Inversion 4- Good- Eversion (S1) 4- Good- Left Dorsiflexion (L4) 4+ Good+ Plantarflexion (S1) 5 Normal Inversion 5 Normal Eversion (S1) 5 Normal PT-OP-N Lymphedema Start: 06/19/18 14:30 Freq: Status: Active Protocol: Document 08/22/18 15:10 [facility] (Rec: 08/22/18 16:26 [facility] [id number]) Lymphedema Measurements Lower Extremity Circumference Measurements right LE MT Heads 27.3 cm Medial Malleolus 30.2 cm 10 cm From Medial Malleolus 31.8 cm 20 cm From Medial Malleolus 39.2 cm 30 cm From Medial Malleolus 37.9 cm 40 cm From Medial Malleolus 38.8 cm 50 cm From Medial Malleolus 42.2 cm 60 cm From Medial Malleolus 48.5 cm 70 cm From Medial Malleolus 53.5 cm PT-OP-T Assessment and Plan Start: 06/19/18 14:30 Freq: Status: Active Protocol: Document 08/22/18 15:10 [facility] (Rec: 08/22/18 15:32 [facility] [id number]) Physical Therapy Assessment Goals decreased scar mobility right LE Special Needs Teacher Goal (LTG) scar mobility right foot WNL 08/22/18: goal progress LTG Duration 09/18/18 lymphedema life impact scale 56% Short Term Goal (STG) Decrease lymphedema life impact scale to 45 08/22/18: goal progress Special Needs Teacher Goal (LTG) Decrase lymphedema life impact scale to no greater than 30% to allow patient to increase his activity level and return to some of his prior activities including hiking. 08/22/18: goal progress LTG Duration 09/18/18 decrease ROM and strength right foot/ankle Short Term Goal (STG) Instruct in ROM and strengthening ex right foot and ankle STG Duration MET Special Needs Teacher Goal (LTG) right ankle ROM and strength WNL 08/22/18: goal progress LTG Duration 09/18/18 lymphedema right LE Short Term Goal (STG) decrease circumferential measurements right LE by 1 cm STG Duration MET Prison Goal (LTG) Decrease and stabilize right LE lymphedema (no increase or decrease greater than 1 cm over the course of 1 wk) and assure patient independent with self-care and has appropriate compression stockings for long-term care. Consider lymphedema pump. 08/22/18: goal progress LTG Duration 09/18/18 Assessment Summary Assessment Improved strength right ankle, decreased circumferential measurements right LE. Physical Therapy Plan Frequency and Duration Frequency of Treatment 2x/Week Duration of Treatment 12 wks Plan of Care Start Date 06/19/18 Plan of Care End Date 09/18/18 Therapeutic Interventions Therapeutic Interventions Aquatic Therapy Home Exercise Program Lymphedema Management Manual Therapy Self-Care/Home Management Soft Tissue Mobilization Therapeutic Activities Therapeutic Exercises Next Visit Focus/Plan Next Note Type Treatment Note Next Visit Plan Continue PT for ankle ROM and strengthening, lymphedema management. Trial sequential pneumatic pump.
--- NOTE | 2018-08-27 16:00 | PT.OTN ---
Current Diagnoses Lymphedema, not elsewhere classified (08/27/18) Pain in right hip (08/27/18) Pain in left hip (08/27/18) Physical Therapy Treatment Note PT-OP-A Visit Information Start: 06/19/18 14:30 Freq: Status: Active Protocol: Document 08/27/18 14:38 SAK (Rec: 08/27/18 14:54 SAK [id number]) Out-Patient Physical Therapy Visit Information Visit Information Visit Type Treatment Note Visit Start Time 15:00 Visit Stop Time 16:00 Total Visit Minutes 60 Visit Number 11 Number of DIRECTOR OF CORPORATE RESPONSIBILITY Visits 0 Evaluation Information Evaluation Date 06/19/18 PT-OP-B Current Condition Start: 06/19/18 14:30 Freq: Status: Active Protocol: Document 06/19/18 14:30 SAK (Rec: 06/19/18 15:40 SAK [id number]) Current Condition History of Current Condition Onset Date 30 yrs History of Current Condition Unknown cause of lymphedema; thought might have something to do with botched vasectomy which he had shortly before vasectomy. Also reports cartilage removed from right knee. Recent surgery right foot due to peroneal tendon tear. Lymphedema initially severe with exacerbations every 2 -4 yrs. Has been hospitalized for cellulitis, most recently as OP for IV medications. Has been losing weight (12# so far, planning for 25#), wants more attention given to his leg to reduce edema further to allow him to tolerate more activity . Has 2 pair of new custom stocking; thigh high. 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 Prior Treatments and Tests Prior lymphedema massage, exercise. No aquatic therapy Prior Functional Status Baseline Function- ADL's Modified Independent Baseline Function- Mobility Modified Independent Current Functional Impairments (Reported) Functional Limitations- Mobility/Gait indep but limited due to heaviness in right LE Functional Limitations- Work/School indep, wears compression stockings but swells as day progresses Functional Limitations- Recreation/ Limited due to heaviness in Hobbies right LE PT-OP-C Subjective Start: 06/19/18 14:30 Freq: Status: Active Protocol: Document 08/27/18 14:38 SAK (Rec: 08/27/18 14:54 SAK [id number]) OP-PT Subjective Patient Comments Patient Comments no new c/o. PT-OP-F Manual Assessment Start: 06/19/18 14:30 Freq: Status: Active Protocol: Document 06/19/18 14:30 SAK (Rec: 06/20/18 10:32 SAK [id number]) Manual Assessments Soft Tissue Assessment Soft Tissue Mobility Assessment No palpable fibrosis right LE PT-OP-J Posture/Palpation/Skin Start: 06/19/18 14:30 Freq: Status: Active Protocol: Document 06/19/18 14:30 SAK (Rec: 06/20/18 10:32 SAK [id number]) Palpation Assessment Location right LE Palpation Findings Edema Palpation Details no increased warmth or tenderness Skin Assessment Edema Assessment right LE Edema Type Pitting Edema Degree 3+ Edema Appearance Puffy Subjective Edema Description Tightness PT-OP-K Range of Motion Start: 06/19/18 14:30 Freq: Status: Active Protocol: Document 06/19/18 14:30 SAK (Rec: 06/21/18 08:39 SAK [id number]) Hip Goniometric Range of Motion Hip jozef Hip ROM WFL Yes Knee Goniometric Range of Motion Knee jozef Knee ROM WFL Yes Ankle and Foot Goniometric Range of Motion Ankle and Foot right Dorsiflexion with Knee Flexed 5 Dorsiflexion with Knee Extended 2 Plantarflexion 35 Inversion 15 Eversion 10 left Dorsiflexion with Knee Flexed 10 Dorsiflexion with Knee Extended 5 Plantarflexion 50 Inversion 30 Eversion 25 Ankle and Foot ROM Limitations ROM Limitations Soft Tissue Tightness Muscle Weakness PT-OP-M Strength Start: 06/19/18 14:30 Freq: Status: Active Protocol: Document 06/19/18 14:30 [facility] (Rec: 06/21/18 08:39 [facility] [id number]) Hip Strength Hip Manual Muscle Testing jozef Flexion (L2) 4+ Good+ Extension (S1) 4+ Good+ Abduction 4+ Good+ Adduction 4+ Good+ External Rotation 4+ Good+ Internal Rotation 4+ Good+ Knee Strength Knee Manual Muscle Testing jozef Flexion (S2) 5 Normal Extension (L3) 5 Normal Ankle/Foot Strength Ankle and Foot Manual Muscle Testing Right Dorsiflexion (L4) 4 Good Plantarflexion (S1) 4 Good Inversion 4- Good- Eversion (S1) 4- Good- Left Dorsiflexion (L4) 4+ Good+ Plantarflexion (S1) 5 Normal Inversion 5 Normal Eversion (S1) 5 Normal PT-OP-N Lymphedema Start: 06/19/18 14:30 Freq: Status: Active Protocol: Document 08/22/18 15:10 [facility] (Rec: 08/22/18 16:26 [facility] [id number]) Lymphedema Measurements Lower Extremity Circumference Measurements right LE MT Heads 27.3 cm Medial Malleolus 30.2 cm 10 cm From Medial Malleolus 31.8 cm 20 cm From Medial Malleolus 39.2 cm 30 cm From Medial Malleolus 37.9 cm 40 cm From Medial Malleolus 38.8 cm 50 cm From Medial Malleolus 42.2 cm 60 cm From Medial Malleolus 48.5 cm 70 cm From Medial Malleolus 53.5 cm PT-OP-Q Treatments Start: 06/19/18 14:30 Freq: Status: Active Protocol: Document 08/27/18 14:38 [facility] (Rec: 08/27/18 16:00 [facility] [id number]) Cardio Equipment Elliptical Duration (Minutes) 8 Resistance 4 Therapeutic Exercises Supine Exercises ankle df, pf, inv, ev Resistance L5 TB Reps/Minutes 10x ea Standing Exercises heel walk, toe walk Reps/Minutes 2 min heel raise, toe raise Reps/Minutes 10x ea Comments jozef and single tandem stand Equipment Used 1/2 roll Reps/Minutes 4 min Comments dbl and single leg Manual Therapy Treatment Soft Tissue Mobilization scar right ankle Mobilization Type Rolling Strumming Body Position Supine Neuro Re-Education Treatment Balance Activities BOSU Comments SLS both sides of BOSU, jozef LE 's Lymphedema Treatment Manual Lymphatic Drainage Location right LE Duration 30 Lymphedema Wrapping Other compression stockings PT-OP-T Assessment and Plan Start: 06/19/18 14:30 Freq: Status: Active Protocol: Document 08/27/18 14:38 [facility] (Rec: 08/27/18 14:54 [facility] [id number]) Physical Therapy Assessment Goals decreased scar mobility right LE Retirement Goal (LTG) scar mobility right foot WNL 08/22/18: goal progress LTG Duration 09/18/18 lymphedema life impact scale 56% Short Term Goal (STG) Decrease lymphedema life impact scale to 45 08/22/18: goal progress Retirement Goal (LTG) Decrase lymphedema life impact scale to no greater than 30% to allow patient to increase his activity level and return to some of his prior activities including hiking. 08/22/18: goal progress LTG Duration 09/18/18 decrease ROM and strength right foot/ankle Short Term Goal (STG) Instruct in ROM and strengthening ex right foot and ankle STG Duration MET Retirement Goal (LTG) right ankle ROM and strength WNL 08/22/18: goal progress LTG Duration 09/18/18 lymphedema right LE Short Term Goal (STG) decrease circumferential measurements right LE by 1 cm STG Duration MET Improvement Advisor Goal (LTG) Decrease and stabilize right LE lymphedema (no increase or decrease greater than 1 cm over the course of 1 wk) and assure patient independent with self-care and has appropriate compression stockings for long-term care. Consider lymphedema pump. 08/22/18: goal progress LTG Duration 09/18/18 Assessment Summary Assessment Tolerated increased resistance with theraband; issued L5 TB. Physical Therapy Plan Frequency and Duration Frequency of Treatment 2x/Week Duration of Treatment 12 wks Plan of Care Start Date 06/19/18 Plan of Care End Date 09/18/18 Therapeutic Interventions Therapeutic Interventions Aquatic Therapy Home Exercise Program Lymphedema Management Manual Therapy Self-Care/Home Management Soft Tissue Mobilization Therapeutic Activities Therapeutic Exercises Next Visit Focus/Plan Next Note Type Treatment Note Next Visit Plan Continue PT for ankle ROM and strengthening, lymphedema management. Trial sequential pneumatic pump.
--- NOTE | 2018-08-29 15:50 | PT.OTN ---
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 Also reports cartilage removed from right knee. Recent surgery right foot due to peroneal tendon tear. Lymphedema initially severe with exacerbations every 2 -4 yrs. Has been hospitalized for cellulitis, most recently as OP for IV medications. Has been losing weight (12# so far, planning for 25#), wants more attention given to his leg to reduce edema further to allow him to tolerate more activity . Has 2 pair of new custom stocking; thigh high. 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 Prior Treatments and Tests Prior lymphedema massage, exercise. No aquatic therapy Prior Functional Status Baseline Function- ADL's Modified Independent Baseline Function- Mobility Modified Independent Current Functional Impairments (Reported) Functional Limitations- Mobility/Gait indep but limited due to heaviness in right LE Functional Limitations- Work/School indep, wears compression stockings but swells as day progresses Functional Limitations- Recreation/ Limited due to heaviness in Hobbies right LE PT-OP-C Subjective Start: 06/19/18 14:30 Freq: Status: Active Protocol: Document 08/29/18 14:41 SAK (Rec: 08/29/18 15:49 SAK [id number]) OP-PT Subjective Patient Comments Patient Comments Patient reports he feels good improvement in his ankle ROM and strength as well as his lymphedema. He is not able to continue PT at this time due to work demands but would like to return in the fall especially for aquatic PT as recommended as he was unable to schedule during this treatment period. PT-OP-F Manual Assessment Start: 06/19/18 14:30 Freq: Status: Active Protocol: Document 06/19/18 14:30 [facility] (Rec: 06/20/18 10:32 [facility] [id number]) Manual Assessments Soft Tissue Assessment Soft Tissue Mobility Assessment No palpable fibrosis right LE PT-OP-J Posture/Palpation/Skin Start: 06/19/18 14:30 Freq: Status: Active Protocol: Document 06/19/18 14:30 SAK (Rec: 06/20/18 10:32 [facility] [id number]) Palpation Assessment Location right LE Palpation Findings Edema Palpation Details no increased warmth or tenderness Skin Assessment Edema Assessment right LE Edema Type Pitting Edema Degree 3+ Edema Appearance Puffy Subjective Edema Description Tightness PT-OP-K Range of Motion Start: 06/19/18 14:30 Freq: Status: Active Protocol: Document 06/19/18 14:30 [facility] (Rec: 06/21/18 08:39 [facility] [id number]) Hip Goniometric Range of Motion Hip jozef Hip ROM WFL Yes Knee Goniometric Range of Motion Knee jozef Knee ROM WFL Yes Ankle and Foot Goniometric Range of Motion Ankle and Foot right Dorsiflexion with Knee Flexed 5 Dorsiflexion with Knee Extended 2 Plantarflexion 35 Inversion 15 Eversion 10 left Dorsiflexion with Knee Flexed 10 Dorsiflexion with Knee Extended 5 Plantarflexion 50 Inversion 30 Eversion 25 Ankle and Foot ROM Limitations ROM Limitations Soft Tissue Tightness Muscle Weakness PT-OP-M Strength Start: 06/19/18 14:30 Freq: Status: Active Protocol: Document 06/19/18 14:30 [facility] (Rec: 06/21/18 08:39 [facility] [id number]) Hip Strength Hip Manual Muscle Testing jozef Flexion (L2) 4+ Good+ Extension (S1) 4+ Good+ Abduction 4+ Good+ Adduction 4+ Good+ External Rotation 4+ Good+ Internal Rotation 4+ Good+ Knee Strength Knee Manual Muscle Testing jozef Flexion (S2) 5 Normal Extension (L3) 5 Normal Ankle/Foot Strength Ankle and Foot Manual Muscle Testing Right Dorsiflexion (L4) 4 Good Plantarflexion (S1) 4 Good Inversion 4- Good- Eversion (S1) 4- Good- Left Dorsiflexion (L4) 4+ Good+ Plantarflexion (S1) 5 Normal Inversion 5 Normal Eversion (S1) 5 Normal PT-OP-N Lymphedema Start: 06/19/18 14:30 Freq: Status: Active Protocol: Document 08/22/18 15:10 [facility] (Rec: 08/22/18 16:26 [facility] [id number]) Lymphedema Measurements Lower Extremity Circumference Measurements right LE MT Heads 27.3 cm Medial Malleolus 30.2 cm 10 cm From Medial Malleolus 31.8 cm 20 cm From Medial Malleolus 39.2 cm 30 cm From Medial Malleolus 37.9 cm 40 cm From Medial Malleolus 38.8 cm 50 cm From Medial Malleolus 42.2 cm 60 cm From Medial Malleolus 48.5 cm 70 cm From Medial Malleolus 53.5 cm PT-OP-Q Treatments Start: 06/19/18 14:30 Freq: Status: Active Protocol: Document 08/29/18 14:41 [facility] (Rec: 08/29/18 15:35 [facility] [id number]) Cardio Equipment Elliptical Duration (Minutes) 8 Resistance 4 Gym Equipment Shuttle Balance chains red Details bal NBOS, stagger, SLS f/b and side Reps/Duration 10' Comments throw weighted ball into rebounder with standing bal NBOS and staggered stance Therapeutic Exercises Supine Exercises ankle df, pf, inv, ev Resistance L5 TB Reps/Minutes 10x ea Standing Exercises HC stretch Equipment Used RAMON Reps/Minutes 2x Comments jozef and unil Therapeutic Activity Therapeutic Activity obstacle course for ankle stability Name bal pods, balance beam, bal discs Reps/Minutes 7' Manual Therapy Treatment Soft Tissue Mobilization scar right ankle Mobilization Type Rolling Strumming Body Position Supine Lymphedema Treatment Manual Lymphatic Drainage Location right LE Duration 30 Lymphedema Wrapping Other compression stockings PT-OP-T Assessment and Plan Start: 06/19/18 14:30 Freq: Status: Active Protocol: Document 08/29/18 14:41 [facility] (Rec: 08/29/18 15:35 [facility] [id number]) Physical Therapy Assessment Goals decreased scar mobility right LE Mcfp Goal (LTG) scar mobility right foot WNL 08/22/18: goal progress LTG Duration 09/18/18 lymphedema life impact scale 56% Short Term Goal (STG) Decrease lymphedema life impact scale to 45 08/22/18: goal progress STG Duration MET 08/29/18 Mcfp Goal (LTG) Decrase lymphedema life impact scale to no greater than 30% to allow patient to increase his activity level and return to some of his prior activities including hiking. 08/22/18: goal progress LTG Duration 09/18/18 decrease ROM and strength right foot/ankle Short Term Goal (STG) Instruct in ROM and strengthening ex right foot and ankle STG Duration MET [employer] Goal (LTG) right ankle ROM and strength WNL 08/22/18: Strength 5-/5 bilateral ankles though functionally still noting some difficulty right LE as compared to left with push-off phase of gait LTG Duration 09/18/18 lymphedema right LE Short Term Goal (STG) decrease circumferential measurements right LE by 1 cm STG Duration MET [employer] Goal (LTG) Decrease and stabilize right LE lymphedema (no increase or decrease greater than 1 cm over the course of 1 wk) and assure patient independent with self-care and has appropriate compression stockings for long-term care. Consider lymphedema pump. 08/22/18: goal progress. Patient has lymphedema pump. Work activities continue to exacerbate his swelling, but it is overall decreased as he is consistently wearing compression stockings. He reports in am when he wakes up the swelling is minimal, much better than when he started PT. LTG Duration 09/18/18 Assessment Summary Assessment Goals mostly achieved. Patient work schedule making it difficult to continue with PT at this time. He is independent with HEP. May be able to return to PT in a few months, try aquatic PT as unable to during this treatment period. Physical Therapy Plan Discharge Physical Therapy Discharge Comments Patient request as above, most goals achieved.
== END 2018-08-29 15:55 ==
LOC: PHYS 14:30
DX: M25.551 Pain in right hip (principal); M25.552 Pain in left hip; I89.0 Lymphedema, not elsewhere classified
CPT/HCPCS: 97110; 97140; 97162; 97535

== ENCOUNTER → 2021-09-21 08:57 | Outpatient (CLI) | payer MEDICARE, OTHER, SELFPAY ==
--- NOTE | 2021-09-21 08:59 | DI.ECHO.S_ITS ---
[place] +---------+ [facility] +---------+ : : [address] : : : : [id number] : : : : Phone: [phone]+ Echocardiogram Report + + :Name: SARAH BARAHONA Study Date: 09/21/2021 Height: 70.5 in: :[facility] ReadingLocation: Weight: 228 lb : : Gender: Male BSA: 2.2 m2 : :: 1950 Age: 71 yrs BP: 142/87 mmHg: :Reason For Study: LOWER EXTREMITY EDEMA : :Ordering Physician: ARSEN, : :RAHUL Performed By: Melanie Mcconnell : :Referring: RAHUL LEGER : + + Interpretation Summary The left ventricle is normal in size. Left ventricular systolic function appears normal without focal wall motion abnormalities. The ejection fraction is estimated to be 60-65%. Diastolic parameters suggest probable normal left ventricular diastolic function and normal filling pressures. The right ventricle is at the upper limits of normal in size. The right ventricular systolic function is normal. The left atrium is mildly dilated. The right atrium is mildly dilated. There is no significant valvular heart disease. The aortic root is normal size. Procedure: A two-dimensional transthoracic echocardiogram with color flow and Doppler was performed. The study quality was technically adequate. There is no prior echocardiogram noted for this patient. The patient was in sinus rhythm with heart rates between 52-70 bpm during the exam. Left Ventricle: The left ventricle is normal in size. Proximal septal thickening is noted. Left ventricular wall thickness is mildly increased. Left ventricular systolic function appears normal without focal wall motion abnormalities. The ejection fraction is estimated to be 60-65%. Diastolic parameters suggest probable normal left ventricular diastolic function and normal filling pressures. Right Ventricle: The right ventricle is at the upper limits of normal in size. The right ventricular systolic function is normal. Atria: The left atrium is mildly dilated. The right atrium is mildly dilated. There is no Doppler evidence for an interatrial shunt. Mitral Valve: The mitral valve is normal in structure and function. There is trace mitral regurgitation. Aortic Valve: The aortic valve is trileaflet. The aortic valve opens well. There is no aortic valve stenosis. There is trace aortic regurgitation. Tricuspid Valve: The tricuspid valve is normal in structure and function. There is trace tricuspid regurgitation. Pulmonic Valve: The pulmonic valve leaflets are thin and pliable; valve motion is normal. There is no pulmonic valvular regurgitation. There is no significant valvular heart disease. Great Vessels: The aortic root is normal size. The dimensions of the ascending aorta are normal. The IVC is of normal diameter and collapses greater than 50% with a sniff. This suggests a low right atrial pressure of 3 mm Hg. Pericardium/ Pleura There is no pericardial effusion. There is no pleural effusion. MMode/2D Measurements & Calculations LVIDd: 3.9 cm LVOT diam: 2.0 cm LVIDs: 2.6 cm Ao root diam: 3.3 cm FS: 34.6 % asc Aorta Diam: 3.5 cm EPSS: 0.45 cm Ao Arch Diam (Prox Trans): 3.2 cm IVSd: 1.4 cm LVPWd: 1.1 cm LV gilbert. diameter/BSA (cm/m^2): 1.8 LV sys. diameter/BSA (cm/m^2): 1.2 LA A2 area: 24.6 cm2 RA long axis: 5.9 cm LA A4 area: 24.8 cm2 RA area: 24.7 cm2 LA length (vol): 6.7 cm RA vol: 87.5 ml LA vol: 77.0 ml RA : 39.4 ml/m2 LA vol index: 34.7 ml/m2 IVC diam: 1.9 cm RVD1 (basal): 4.2 cm RVD2 (mid): 4.0 cm TAPSE: 2.5 cm Doppler Measurements & Calculations Ao V2 max: 161.8 cm/sec LVOT Max Armando: 123.1 cm/sec Ao V2 mean: 109.0 cm/sec LV V1 max P.1 mmHg Ao max P.5 mmHg LV V1 VTI: 26.9 cm Ao mean P.4 mmHg TAYLER(I,D): 2.1 cm2 Ao V2 VTI: 40.3 cm TAYLER(V,D): 2.4 cm2 sev ratio: 0.67 TAYLER indexed to BSA (cm^2/m^2): 0.95 MV E max armando: 81.1 cm/sec PA V2 max: 144.4 cm/sec MV A max armando: 47.0 cm/sec PA V2 mean: 91.4 cm/sec MV E/A: 1.7 PA mean P.9 mmHg Med Peak E' Armando: 9.6 cm/sec PA pr(Accel): 37.9 mmHg E/E' med: 8.4 Lat Peak E' Armando: 11.3 cm/sec E/E' lat: 7.1 E/e' average: 7.8 MV dec time: 0.15 sec SV(LVOT): 84.9 ml Reading Physician:04:51 PM
== END ==
PROVIDERS: Referring Provider Physical Medicine & Rehabilitation; Visit Provider Physical Medicine & Rehabilitation
DX: R60.0 Localized edema (principal)
CPT/HCPCS: 93306

== ENCOUNTER → 2023-09-07 11:59 | Outpatient (CLI) | payer MEDICARE, OTHER, SELFPAY ==
[2023-09-07 14:18] LABS: BUN Creatinine Ratio 25.9 (6-22); Blood Urea Nitrogen 21 mg/dL (9-20); Calcium 9.2 mg/dL (8.4-10.2); Carbon Dioxide 27 mmol/L (22-32); Chloride 108 mmol/L (98-107); Estimated Glomerular Filt Rate > 60 mL/min (>60); Glucose 108 mg/dL (80-110); HEMOLYSIS < 15 (0-50); Potassium 4.8 mmol/L (3.4-5.1); Sodium 139 mmol/L (137-145)
== END ==
PROVIDERS: Family Provider Nurse Practitioner Family; PCP Nurse Practitioner Family; Referring Provider Urology; Visit Provider Urology
DX: R10.9 Unspecified abdominal pain (principal)
CPT/HCPCS: 36415; 80048

== ENCOUNTER → 2023-09-11 11:55 | Outpatient (CLI) | payer MEDICARE, OTHER, SELFPAY ==
--- NOTE | 2023-09-11 11:58 | DI.CT.S_ITS ---
PROCEDURE: CT ABDOMEN PELVIS WO/W CON INDICATIONS: Flank pain question of kidney stones/abdominal pain TECHNIQUE: Optional 5 mm thick noncontrast images acquired from the diaphragm to the symphysis pubis. After the administration of intravenous contrast, 5 mm thick images acquired from the diaphragm to the symphysis pubis after a 10-minute delay. 2 mm thick coronal and sagittal reformats were then performed of the kidneys and ureters. For radiation dose reduction, the following was used: automated exposure control, adjustment of mA and/or kV according to patient size. COMPARISON: None. FINDINGS: Image quality: Diagnostic. Kidneys and Ureters: Both kidneys are normal in size, without hydronephrosis or nephrolithiasis. No perinephric fat stranding. There is normal bilateral renal enhancement. Renal calyces appear normal in morphology when filled with contrast. Opacified portions of both ureters demonstrate normal caliber Bladder: Bladder wall thickness is normal. No calcified bladder stones. OTHER: Lower chest: Moderate hiatal hernia. 3 mm solid nodule, right lower lobe. Liver: No solid mass. Hepatic cysts. Gallbladder: No radiopaque gallstones or wall thickening. Biliary ducts: No biliary dilation. Pancreas: No ductal dilation. Spleen: Size is within normal limits. Adrenal Glands: No adrenal nodules. Stomach and Bowel: Normal colonic caliber, without significant wall thickening. Peritoneum: No abnormal intraperitoneal fluid. No free air. Ventral Wall: Small umbilical hernia containing fat. Abdominal Nodes: No retroperitoneal or mesenteric adenopathy by size criteria. Vessels: Aorta and inferior vena cava are normal in size. PELVIS: Pelvic Organs: Unremarkable. Pelvic Nodes: No enlarged lymph nodes. Miscellaneous: No inguinal hernias are seen. Bones: No aggressive osseous abnormality. Bilateral sacroiliitis. IMPRESSION: No nephrolithiasis or filling defects within the opacified renal collecting system or ureters. 3 mm solid nodule in the right lower lobe. Consider 12 month follow-up if at high risk for developing lung cancer, per Fleischner Society guidelines. Moderate hiatal hernia. Bilateral sacroiliitis, which can be seen in the setting of other medical conditions, such as inflammatory bowel disease. Dictated by: Magnus Doyle M.D. on 09/11/2023 at 16:09 Approved by: Magnus Doyle M.D. on 09/11/2023 at 16:12
== END ==
PROVIDERS: Family Provider Nurse Practitioner Family; PCP Nurse Practitioner Family; Referring Provider Urology; Visit Provider Urology
DX: K44.9 Diaphragmatic hernia without obstruction or gangrene (principal); R91.1 Solitary pulmonary nodule; K76.89 Other specified diseases of liver; K42.9 Umbilical hernia without obstruction or gangrene; M46.1 Sacroiliitis, not elsewhere classified; R10.9 Unspecified abdominal pain
CPT/HCPCS: 74178; Q9967

== ENCOUNTER → 2023-10-03 07:58 | Outpatient (CLI) | payer MEDICARE, OTHER, SELFPAY ==
--- NOTE | 2023-10-03 08:00 | DI.ECHO.S_ITS ---
[place] +---------+ Hospital : : [address] : [place] : : [id number] : : Phone: [phone] Echocardiogram Report + + :Name: SARAH BARAHONA Study Date: 10/03/2023 Height: 70 in : :Hospital ReadingLocation: Weight: 240 lb : : Gender: Male BSA: 2.3 m2 : :: 1950 Age: 73 yrs BP: 135/77 mmHg: :Reason For Study: LOCALIZED EDEMA : :Ordering Physician: FRANCHESKA, : :GAYE Performed By: Jese Thakur : :Referring: GAYE PRITCHARD : + + Interpretation Summary 1) Normal left ventricular size, wall motion, and systolic function (EF 60- 65%). 2) Mildly enlarged right ventricle with normal function. 3) No significant valvular abnormalities. 4) No prior Echo available for comparison. Procedure: A two-dimensional transthoracic echocardiogram with color flow and Doppler was performed. The study quality was technically adequate. Comparison is made with the echocardiogram of 09/21/2021. The patient was in sinus rhythm with heart rates between 61-86 bpm during the exam. Left Ventricle: The left ventricle is normal in size. Left ventricular wall thickness is at the upper limits of normal. Proximal septal thickening is noted. The ejection fraction is estimated to be 65-70%. Left ventricular systolic function appears normal without focal wall motion abnormalities. Right Ventricle: The right ventricle is mildly dilated. The right ventricular systolic function is normal. Atria: The left atrial size is normal. The right atrium is mildly dilated. The interatrial septum grossly appears intact with no obvious evidence for an atrial septal defect. Mitral Valve: The mitral valve is normal. There is no mitral valve stenosis. There is no mitral regurgitation noted. Aortic Valve: The aortic valve is trileaflet. There is no aortic valve stenosis. No aortic regurgitation is present. Tricuspid Valve: The tricuspid valve is normal. There is no tricuspid stenosis. There is a trace or physiologic amount of tricuspid regurgitation. The right ventricular systolic pressure is estimated to be at least 22.2 mmHg based on an estimated right atrial pressure of 3 mm Hg. Pulmonic Valve: The pulmonic valve is not well visualized. There is no pulmonic valvular stenosis. There is no pulmonic valvular regurgitation. Great Vessels: The aortic root is normal size. The dimensions of the ascending aorta are normal. The IVC is of normal diameter and collapses greater than 50% with a sniff. This suggests a low right atrial pressure of 3 mm Hg. Pericardium/ Pleura There is no pericardial effusion. There is no pleural effusion. MMode/2D Measurements & Calculations LVIDd: 4.7 cm LVOT diam: 2.1 cm LVIDs: 2.8 cm Ao root diam: 2.9 cm FS: 41.1 % asc Aorta Diam: 3.0 cm IVSd: 1.2 cm Ao Arch Diam (Prox Trans): 2.4 cm LVPWd: 1.0 cm LV gilbert. diameter/BSA (cm/m^2): 2.1 LV sys. diameter/BSA (cm/m^2): 1.2 LA A2 area: 20.3 cm2 RA long axis: 5.2 cm LA A4 area: 25.9 cm2 RA area: 18.7 cm2 LA length (vol): 6.2 cm RA vol: 56.8 ml LA vol: 72.4 ml RA : 25.2 ml/m2 LA vol index: 32.1 ml/m2 IVC diam: 1.9 cm RVD1 (basal): 4.1 cm RVD2 (mid): 3.7 cm TAPSE: 3.1 cm Doppler Measurements & Calculations Ao V2 max: 195.5 cm/sec LVOT Max Armando: 125.7 cm/sec Ao V2 mean: 141.1 cm/sec LV V1 max P.3 mmHg Ao max P.3 mmHg LV V1 VTI: 26.2 cm Ao mean P.7 mmHg TAYLER(I,D): 2.2 cm2 Ao V2 VTI: 40.3 cm TAYLER(V,D): 2.2 cm2 sev ratio: 0.65 TAYLER indexed to BSA (cm^2/m^2): 0.99 MV E max armando: 111.2 cm/sec TR max armando: 219.0 cm/sec MV A max armando: 73.7 cm/sec TR max P.2 mmHg MV E/A: 1.5 PA V2 max: 185.5 cm/sec Med Peak E' Armando: 8.7 cm/sec PA V2 mean: 105.6 cm/sec E/E' med: 12.7 PA mean P.0 mmHg Lat Peak E' Armando: 9.4 cm/sec PA pr(Accel): 37.9 mmHg E/E' lat: 11.9 E/e' average: 12.3 MV dec time: 0.19 sec SV(LVOT): 89.8 ml Reading Physician:12:10 PM
== END ==
PROVIDERS: Family Provider Nurse Practitioner Family; PCP Nurse Practitioner Family; Referring Provider Nurse Practitioner Family; Visit Provider Nurse Practitioner Family
DX: R60.0 Localized edema (principal)
CPT/HCPCS: 93306

== ENCOUNTER → 2023-12-02 09:47 | Outpatient (CLI) | payer MEDICARE, OTHER, SELFPAY ==
[2023-12-02 13:25] LABS: Prostate Specific Antigen Scrn 2.18 ng/mL (0.1-4.0)
== END ==
PROVIDERS: Family Provider Nurse Practitioner Family; PCP Nurse Practitioner Family; Referring Provider Urology; Visit Provider Urology
DX: Z12.5 Encounter for screening for malignant neoplasm of prostate (principal)
CPT/HCPCS: 36415; G0103

== ENCOUNTER → 2023-12-12 | Outpatient (CLI) | payer MEDICARE, OTHER, SELFPAY ==
--- NOTE | 2023-12-14 08:02 | DI.NM.S_ITS ---
DATE OF SERVICE: 12/13/2023 PROCEDURE: Exercise stress test. INDICATIONS: Exertional shortness of breath, lower extremity edema. CARDIAC STRESS: The patient underwent exercise stress test under the supervision of an attending staff. The patient walked on Toni protocol for 9 minutes, achieved maximum heart rate of 155, which was 107% of target heart rate. Resting blood pressure 122/88 and peak blood pressure 200/82. 10.1 METs of workload. YARA -43%. Baseline rhythm was sinus. During stress, no convincing ischemic changes seen. During exercise as well as in early recovery, the patient has intermittent PVCs including short run of bigeminy pattern and occasional ventricular couplets without any ventricular tachycardia. No chest pain. He had some shortness of breath. CONCLUSION: Exercise stress test is negative for inducible ischemia. Excellent exercise tolerance. Normal hemodynamic response. Intermittent PVCs including short run of bigeminy and occasional ventricular couplets during exercise and early recovery. No ventricular tachycardia. No anginal symptoms. Normal hemodynamic response. Overall, low-risk exercise stress test. Correlate clinically. Silvestre Gaytan - MUNIRA/sukumar/GABRIELE doc#: [id number]/job#: [id number] dd: 12/13/2023 17:06:00 dt: 12/13/2023 21:58:00 DICTATING /COPIES TO: Nico Camacho MD COPIES MNE: [place];
== END ==
LOC: DI 15:05
PROVIDERS: Family Provider Nurse Practitioner Family; PCP Nurse Practitioner Family; Referring Provider Internal Medicine; Visit Provider Internal Medicine
DX: R06.09 Other forms of dyspnea (principal)
CPT/HCPCS: 93017

== ENCOUNTER 2024-01-16 14:30 | Outpatient (RCR) | payer MEDICARE, OTHER, SELFPAY ==
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
--- NOTE | 2023-11-07 11:57 | PT.OTN ---
Current Diagnoses Lymphedema, not elsewhere classified (11/07/23) Soft tissue disorder, unspecified (11/07/23) Physical Therapy Treatment Note PT-OP-A Visit Information Start: 11/05/23 16:25 Freq: Status: Active Protocol: Document 11/07/23 08:16 [facility] (Rec: 11/07/23 09:01 [facility] [id number]) Out-Patient Physical Therapy Visit Information Visit Information Visit Type Treatment Note Visit Note States layering of compression very helpful wore all day. Today wore bike shorts, layered compression on right, single on left (20-30 mm Hg). Swelling down at end of day and still down this am. When removes compression at PT states not down as much as when got up or last night. Likes [employer]. Brought informatio about compression pump; mobile battery powered pump, no foot component. Visit Start Time 08:15 Visit Stop Time 09:45 Visit Number 2 Evaluation Information Evaluation Date 11/06/23 PT-OP-B Current Condition Start: 11/05/23 16:25 Freq: Status: Active Protocol: Document 11/07/23 08:16 [facility] (Rec: 11/07/23 09:01 [facility] [id number]) Current Condition History of Current Condition Onset Date 39 y/0 Current Complaints lymphedema jozef LE's right greater than left. History of Current Condition development of lymphedema no known reason, thinks something to do with vasectomy, low grade infection on one side. Had to be hospitalized 1x due to infection/cellulitis. , frequently had to have IV antibiotics, would have development of cellulitis, Since 58 y/o, flare ups decreased to about once every couple years. Lately increase in swelling early summer, had dose of antibiots. Last saw doctor 1 month ago; had heart work up, low back workup, CT scan negative. Wearing 20-30 mm Hg stockings, has 30-40 mm Hg but they are a bit much, too much to get on and off. Has sequential pneumatic pump through PT in [place]. Has vibration plate, and massage plate for his feet. Also has neuropathy right foot. Feeling like his lymphedema is getting more out of control, difficulty managing himself. Normally swelling in right foot goes down at night, but gets pretty extreme during the day. Wondering if wearing his belt causing increased swelling into his legs. 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 PT-OP-C Subjective Start: 11/05/23 16:25 Freq: Status: Active Protocol: Document 11/06/23 08:10 [facility] (Rec: 11/06/23 11:29 [facility] [id number]) Patient Questionnaires Lymphedema Life Impact Score Lymphedema Score 54 OP-PT Pain Assessment Pain Assessment Grid Paper Pain Assessment Grid Completed Yes Location jozef LE's Intensity 4 PT-OP-F Manual Assessment Start: 11/05/23 16:25 Freq: Status: Active Protocol: Document 11/06/23 08:10 [facility] (Rec: 11/06/23 11:29 [facility] [id number]) Manual Assessments Soft Tissue Assessment Soft Tissue Mobility Assessment fibrosis jozef LE's right greataer than left, most significant mid calf distally on right PT-OP-J Posture/Palpation/Skin Start: 11/05/23 16:25 Freq: Status: Active Protocol: Document 11/06/23 08:10 [facility] (Rec: 11/06/23 11:29 [facility] [id number]) Palpation Assessment Location jozef LE's Palpation Findings Edema Palpation Details no redness or increased warmth Skin Assessment Edema Assessment jozef LEs Edema Type Pitting Edema Degree 3+ Edema Appearance Firm,Puffy,Taut Subjective Edema Description Tightness PT-OP-K Range of Motion Start: 11/05/23 16:25 Freq: Status: Active Protocol: Document 11/06/23 08:10 [facility] (Rec: 11/06/23 11:29 [facility] [id number]) Hip Goniometric Range of Motion Hip jozef Hip ROM WFL Yes Knee Goniometric Range of Motion Knee jozef Knee ROM WFL Yes Ankle and Foot Goniometric Range of Motion Ankle and Foot jozef Ankle/Foot ROM WFL Yes PT-OP-L Special Tests Start: 11/05/23 16:25 Freq: Status: Active Protocol: Document 11/06/23 08:10 [facility] (Rec: 11/06/23 11:29 [facility] [id number]) Special Tests Other Special Tests Special Tests Stemmer sign for lymphedema; positive jozef PT-OP-N Lymphedema Start: 11/05/23 16:25 Freq: Status: Active Protocol: Document 11/07/23 08:16 [facility] (Rec: 11/07/23 09:01 [facility] [id number]) Lymphedema Measurements Lower Extremity Circumference Measurements Right Affected MT Heads 27.4 cm Mid-foot 26.7 cm Medial Malleolus 31.1 cm 10 cm From Medial Malleolus 33.9 cm 20 cm From Medial Malleolus 43.7 cm 30 cm From Medial Malleolus 43.3 cm 40 cm From Medial Malleolus 40.2 cm 50 cm From Medial Malleolus 42.2 cm 60 cm From Medial Malleolus 50.5 cm 70 cm From Medial Malleolus 57 cm Knee Joint 40.2 cm Left Affected MT Heads 27.3 cm Mid-foot 27.4 cm Medial Malleolus 31.2 cm 10 cm From Medial Malleolus 32.8 cm 20 cm From Medial Malleolus 40.1 cm 30 cm From Medial Malleolus 39 cm 40 cm From Medial Malleolus 40.3 cm 50 cm From Medial Malleolus 44 cm 60 cm From Medial Malleolus 52.5 cm 70 cm From Medial Malleolus 58.3 cm Knee Joint 40.3 cm PT-OP-Q Treatments Start: 11/05/23 16:25 Freq: Status: Active Protocol: Document 11/07/23 08:16 [facility] (Rec: 11/07/23 09:01 [facility] [id number]) Lymphedema Treatment Manual Lymphatic Drainage Location right LE Duration 30 Lymphedema Wrapping Materials No bandaging today due to good response layering of compression, may still consider bandaging depending on measurements tomorrow; patient applied layered compression 20-30 mm Hg on right 2 thigh high, one on left but will put second on at home Sequential Lymphedema Exercises Location reviewed Compression Garment Assessment Compression Garment Assessment Details good fit, patient thinks 20mm hg pressure PT-OP-T Assessment and Plan Start: 11/05/23 16:25 Freq: Status: Active Protocol: Document 11/07/23 08:16 [facility] (Rec: 11/07/23 09:01 [facility] [id number]) Physical Therapy Assessment Impairments Impairments Activity Tolerance,Edema, Integument,Soft Tissue Mobility Goals Three Impairment fibrosis jozef LE's worst right ankle [employer] Goal (LTG) Decrease fibrosis of LE soft tissue to minimal level through complete decongestive therapy LTG Duration 02/05/24 Two Impairment lymphedema life impact scale 54% Short Term Goal (STG) Decrease Lymphedema Life Impact Scale to no greater than 40% as measure of improved activity tolerance and quality of life. STG Duration 12/22/23 Longterm Goal (LTG) Decrease Lymphedema Life Impact Scale to no greater than 2-% as measure of improved activity tolerance and quality of life. LTG Duration 02/05/24 One Impairment lymphedema jozef LE Short Term Goal (STG) Patient will be instructed in all aspects of lymphedema self -care to include skin care, elevation, self-massage, self- bandaging/compression options, and lymphedema exercises. STG Duration 12/22/23 [employer] Goal (LTG) Decrease patient?s lymphedema to a stable level (no increase or decrease greater than 1 cm over the course of 1 week), patient to be independent with all aspects of self-care for lymphedema, and will obtain appropriate compression garment for lymphedema management in the home. LTG Duration 02/05/24 Progress Towards Goals Progress Towards Goals Progressing Toward Goals Assessment Summary Assessment Circumferential measurements decreased with layering of compression, agreed to no bandaging today if progress continues with layering of compression. Discussing options for compression moving forward; full length tights vs compression shorts and thigh high, recommend 30-40 mm Hg custom likely for best fit and edema control. Feel patient's current lymphedema pump which does not have a foot component or trunk component is not adequate for lymphedema control for this patient, recommend sequential pneumatic pump full legs and trunk (pants). Physical Therapy Plan Frequency and Duration Frequency of Treatment 20 Duration of treatment (weeks) 12 Plan of Care Start Date 11/06/23 Plan of Care End Date 02/05/24 Therapeutic Interventions Therapeutic Interventions Home Exercise Program, Lymphedema Management,Manual Therapy,Patient/Caregiver Education,Self-Care/Home Management,Taping,Therapeutic Activities,Therapeutic Exercises Modalities Vasopneumatic Devices Other Referrals/Consults Referrals/Consults Recommended Referral to [facility] in [place] for evaluation for appropriate compression garments; consider tights, 30- 40 mm Hg, or thigh high with compression shorts. May need custom, and will need donning/ doffing aid. Next Visit Focus/Plan Next Note Type Treatment Note Next Visit Plan Continue CDT including jozef LE bandaging if appears indicated, with compression shorts. Ex bike or recumbant elliptical end of session.
--- NOTE | 2023-11-08 09:43 | PT.OTN ---
Current Diagnoses Lymphedema, not elsewhere classified (11/08/23) Soft tissue disorder, unspecified (11/08/23) Physical Therapy Treatment Note PT-OP-A Visit Information Start: 11/05/23 16:25 Freq: Status: Active Protocol: Document 11/08/23 08:06 [facility]AK (Rec: 11/08/23 08:49 [facility] [id number]) Out-Patient Physical Therapy Visit Information Visit Information Visit Type Treatment Note Visit Start Time 08:15 Visit Stop Time 09:45 Visit Number 3 Evaluation Information Evaluation Date 11/06/23 PT-OP-B Current Condition Start: 11/05/23 16:25 Freq: Status: Active Protocol: Document 11/08/23 08:06 SAK (Rec: 11/08/23 08:49 [facility] [id number]) Current Condition History of Current Condition Onset Date 39 y/0 Current Complaints lymphedema jozef LE's right greater than left. History of Current Condition development of lymphedema no known reason, thinks something to do with vasectomy, low grade infection on one side. Had to be hospitalized 1x due to infection/cellulitis. , frequently had to have IV antibiotics, would have development of cellulitis, Since 58 y/o, flare ups decreased to about once every couple years. Lately increase in swelling early summer, had dose of antibiots. Last saw doctor 1 month ago; had heart work up, low back workup, CT scan negative. Wearing 20-30 mm Hg stockings, has 30-40 mm Hg but they are a bit much, too much to get on and off. Has sequential pneumatic pump through PT in [place]. Has vibration plate, and massage plate for his feet. Also has neuropathy right foot. Feeling like his lymphedema is getting more out of control, difficulty managing himself. Normally swelling in right foot goes down at night, but gets pretty extreme during the day. Wondering if wearing his belt causing increased swelling into his legs. 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 Was sitting on a tractor most of the day yesterday. PT-OP-F Manual Assessment Start: 11/05/23 16:25 Freq: Status: Active Protocol: Document 11/06/23 08:10 [facility] (Rec: 11/06/23 11:29 [facility] [id number]) Manual Assessments Soft Tissue Assessment Soft Tissue Mobility Assessment fibrosis jozef LE's right greataer than left, most significant mid calf distally on right PT-OP-J Posture/Palpation/Skin Start: 11/05/23 16:25 Freq: Status: Active Protocol: Document 11/06/23 08:10 [facility] (Rec: 11/06/23 11:29 [facility] [id number]) Palpation Assessment Location jozef LE's Palpation Findings Edema Palpation Details no redness or increased warmth Skin Assessment Edema Assessment jozef LEs Edema Type Pitting Edema Degree 3+ Edema Appearance Firm,Puffy,Taut Subjective Edema Description Tightness PT-OP-K Range of Motion Start: 11/05/23 16:25 Freq: Status: Active Protocol: Document 11/06/23 08:10 [facility] (Rec: 11/06/23 11:29 [facility] [id number]) Hip Goniometric Range of Motion Hip jozef Hip ROM WFL Yes Knee Goniometric Range of Motion Knee jozef Knee ROM WFL Yes Ankle and Foot Goniometric Range of Motion Ankle and Foot jozef Ankle/Foot ROM WFL Yes PT-OP-L Special Tests Start: 11/05/23 16:25 Freq: Status: Active Protocol: Document 11/06/23 08:10 [facility] (Rec: 11/06/23 11:29 [facility] [id number]) Special Tests Other Special Tests Special Tests Stemmer sign for lymphedema; positive jozef PT-OP-N Lymphedema Start: 11/05/23 16:25 Freq: Status: Active Protocol: Document 11/08/23 08:06 [facility] (Rec: 11/08/23 08:49 [facility] [id number]) Lymphedema Measurements Lower Extremity Circumference Measurements Right Affected MT Heads 27.8 cm Mid-foot 26.8 cm Medial Malleolus 31.2 cm 10 cm From Medial Malleolus 32.7 cm 20 cm From Medial Malleolus 41.5 cm 30 cm From Medial Malleolus 42.4 cm 40 cm From Medial Malleolus 40.8 cm 50 cm From Medial Malleolus 42.8 cm 60 cm From Medial Malleolus 49.8 cm 70 cm From Medial Malleolus 57 cm 80 cm From Medial Malleolus 27 cm Left Affected MT Heads 27 cm Mid-foot 27.8 cm Medial Malleolus 31.5 cm 10 cm From Medial Malleolus 31.8 cm 20 cm From Medial Malleolus 39.6 cm 30 cm From Medial Malleolus 39 cm 40 cm From Medial Malleolus 40 cm 50 cm From Medial Malleolus 43.2 cm 60 cm From Medial Malleolus 51.2 cm 70 cm From Medial Malleolus 57.3 cm Knee Joint 40 cm PT-OP-Q Treatments Start: 11/05/23 16:25 Freq: Status: Active Protocol: Document 11/08/23 08:06 [facility] (Rec: 11/08/23 09:43 [facility] [id number]) Cardio Equipment Recumbent Stepper (Sci-Fit) Duration (Minutes) 10 Resistance 1 Seat Position 13 Lymphedema Treatment Lymphedema Wrapping Body Location jozef LE's toes to knees Materials toe wraps, Tricofix size G, Comprilan (2), Artiflex 6,8,10 Sequential Lymphedema Exercises Comments Sci-Fit x 10 min as above Compression Garment Assessment Compression Garment Assessment Details Further discussion options, given loaner night garments thigh and lower leg for trial PT-OP-T Assessment and Plan Start: 11/05/23 16:25 Freq: Status: Active Protocol: Document 11/08/23 08:06 [facility] (Rec: 11/08/23 08:49 [facility] [id number]) Physical Therapy Assessment Assessment Summary Assessment Patient with increase in foot and ankle measurements but decrease calf, variable at knees and upper thighs. Multual decision for bandaging to get better distal compression , starting with knee high due to patient feeling claustraphobic. Physical Therapy Plan Therapeutic Interventions Therapeutic Interventions Home Exercise Program, Lymphedema Management,Manual Therapy,Patient/Caregiver Education,Self-Care/Home Management,Taping,Therapeutic Activities,Therapeutic Exercises Modalities Vasopneumatic Devices Next Visit Focus/Plan Next Note Type Treatment Note Next Visit Plan Evaluate response to bandaging , continue CDT.
--- NOTE | 2023-11-08 09:44 | PT.OTN ---
Current Diagnoses Lymphedema, not elsewhere classified (11/08/23) Soft tissue disorder, unspecified (11/08/23) Physical Therapy Treatment Note PT-OP-A Visit Information Start: 11/05/23 16:25 Freq: Status: Active Protocol: Document 11/08/23 08:06 [facility]AK (Rec: 11/08/23 08:49 [facility] [id number]) Out-Patient Physical Therapy Visit Information Visit Information Visit Type Treatment Note Visit Start Time 08:15 Visit Stop Time 09:45 Visit Number 3 Evaluation Information Evaluation Date 11/06/23 PT-OP-B Current Condition Start: 11/05/23 16:25 Freq: Status: Active Protocol: Document 11/08/23 08:06 [facility]AK (Rec: 11/08/23 08:49 [facility] [id number]) Current Condition History of Current Condition Onset Date 39 y/0 Current Complaints lymphedema jozef LE's right greater than left. History of Current Condition development of lymphedema no known reason, thinks something to do with vasectomy, low grade infection on one side. Had to be hospitalized 1x due to infection/cellulitis. , frequently had to have IV antibiotics, would have development of cellulitis, Since 58 y/o, flare ups decreased to about once every couple years. Lately increase in swelling early summer, had dose of antibiots. Last saw doctor 1 month ago; had heart work up, low back workup, CT scan negative. Wearing 20-30 mm Hg stockings, has 30-40 mm Hg but they are a bit much, too much to get on and off. Has sequential pneumatic pump through PT in [place]. Has vibration plate, and massage plate for his feet. Also has neuropathy right foot. Feeling like his lymphedema is getting more out of control, difficulty managing himself. Normally swelling in right foot goes down at night, but gets pretty extreme during the day. Wondering if wearing his belt causing increased swelling into his legs. 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 Was sitting on a tractor most of the day yesterday. PT-OP-F Manual Assessment Start: 11/05/23 16:25 Freq: Status: Active Protocol: Document 11/06/23 08:10 [facility] (Rec: 11/06/23 11:29 [facility] [id number]) Manual Assessments Soft Tissue Assessment Soft Tissue Mobility Assessment fibrosis jozef LE's right greataer than left, most significant mid calf distally on right PT-OP-J Posture/Palpation/Skin Start: 11/05/23 16:25 Freq: Status: Active Protocol: Document 11/06/23 08:10 [facility] (Rec: 11/06/23 11:29 [facility] [id number]) Palpation Assessment Location jozef LE's Palpation Findings Edema Palpation Details no redness or increased warmth Skin Assessment Edema Assessment jozef LEs Edema Type Pitting Edema Degree 3+ Edema Appearance Firm,Puffy,Taut Subjective Edema Description Tightness PT-OP-K Range of Motion Start: 11/05/23 16:25 Freq: Status: Active Protocol: Document 11/06/23 08:10 [facility] (Rec: 11/06/23 11:29 [facility] [id number]) Hip Goniometric Range of Motion Hip jozef Hip ROM WFL Yes Knee Goniometric Range of Motion Knee jozef Knee ROM WFL Yes Ankle and Foot Goniometric Range of Motion Ankle and Foot jozef Ankle/Foot ROM WFL Yes PT-OP-L Special Tests Start: 11/05/23 16:25 Freq: Status: Active Protocol: Document 11/06/23 08:10 [facility] (Rec: 11/06/23 11:29 [facility] [id number]) Special Tests Other Special Tests Special Tests Stemmer sign for lymphedema; positive jozef PT-OP-N Lymphedema Start: 11/05/23 16:25 Freq: Status: Active Protocol: Document 11/08/23 08:06 [facility] (Rec: 11/08/23 08:49 [facility] [id number]) Lymphedema Measurements Lower Extremity Circumference Measurements Right Affected MT Heads 27.8 cm Mid-foot 26.8 cm Medial Malleolus 31.2 cm 10 cm From Medial Malleolus 32.7 cm 20 cm From Medial Malleolus 41.5 cm 30 cm From Medial Malleolus 42.4 cm 40 cm From Medial Malleolus 40.8 cm 50 cm From Medial Malleolus 42.8 cm 60 cm From Medial Malleolus 49.8 cm 70 cm From Medial Malleolus 57 cm 80 cm From Medial Malleolus 27 cm Left Affected MT Heads 27 cm Mid-foot 27.8 cm Medial Malleolus 31.5 cm 10 cm From Medial Malleolus 31.8 cm 20 cm From Medial Malleolus 39.6 cm 30 cm From Medial Malleolus 39 cm 40 cm From Medial Malleolus 40 cm 50 cm From Medial Malleolus 43.2 cm 60 cm From Medial Malleolus 51.2 cm 70 cm From Medial Malleolus 57.3 cm Knee Joint 40 cm PT-OP-Q Treatments Start: 11/05/23 16:25 Freq: Status: Active Protocol: Document 11/08/23 08:06 [facility] (Rec: 11/08/23 09:43 [facility] [id number]) Cardio Equipment Recumbent Stepper (Sci-Fit) Duration (Minutes) 10 Resistance 1 Seat Position 13 Lymphedema Treatment Lymphedema Wrapping Body Location jozef LE's toes to knees Materials toe wraps, Tricofix size G, Comprilan (2), Artiflex 6,8,10 Sequential Lymphedema Exercises Comments Sci-Fit x 10 min as above Compression Garment Assessment Compression Garment Assessment Details Further discussion options, given loaner night garments thigh and lower leg for trial PT-OP-T Assessment and Plan Start: 11/05/23 16:25 Freq: Status: Active Protocol: Document 11/08/23 08:06 [facility] (Rec: 11/08/23 08:49 [facility] [id number]) Physical Therapy Assessment Assessment Summary Assessment Patient with increase in foot and ankle measurements but decrease calf, variable at knees and upper thighs. Multual decision for bandaging to get better distal compression , starting with knee high due to patient feeling claustraphobic. Patient brought [email or web address] leg pump to show PT; has foot strap but no pumping of feet, do not feel adequate for lymphedema management. Physical Therapy Plan Therapeutic Interventions Therapeutic Interventions Home Exercise Program, Lymphedema Management,Manual Therapy,Patient/Caregiver Education,Self-Care/Home Management,Taping,Therapeutic Activities,Therapeutic Exercises Modalities Vasopneumatic Devices Next Visit Focus/Plan Next Note Type Treatment Note Next Visit Plan Evaluate response to bandaging , continue CDT.
--- NOTE | 2023-11-08 17:07 | PT.OTN ---
Current Diagnoses Lymphedema, not elsewhere classified (11/08/23) Soft tissue disorder, unspecified (11/08/23) Physical Therapy Treatment Note PT-OP-A Visit Information Start: 11/05/23 16:25 Freq: Status: Active Protocol: Document 11/08/23 08:06 SAK (Rec: 11/08/23 08:49 [facility] [id number]) Out-Patient Physical Therapy Visit Information Visit Information Visit Type Treatment Note Visit Start Time 08:15 Visit Stop Time 09:45 Visit Number 3 Evaluation Information Evaluation Date 11/06/23 PT-OP-B Current Condition Start: 11/05/23 16:25 Freq: Status: Active Protocol: Document 11/08/23 08:06 SAK (Rec: 11/08/23 08:49 [facility] [id number]) Current Condition History of Current Condition Onset Date 39 y/0 Current Complaints lymphedema jozef LE's right greater than left. History of Current Condition development of lymphedema no known reason, thinks something to do with vasectomy, low grade infection on one side. Had to be hospitalized 1x due to infection/cellulitis. , frequently had to have IV antibiotics, would have development of cellulitis, Since 58 y/o, flare ups decreased to about once every couple years. Lately increase in swelling early summer, had dose of antibiots. Last saw doctor 1 month ago; had heart work up, low back workup, CT scan negative. Wearing 20-30 mm Hg stockings, has 30-40 mm Hg but they are a bit much, too much to get on and off. Has sequential pneumatic pump through PT in [place]. Has vibration plate, and massage plate for his feet. Also has neuropathy right foot. Feeling like his lymphedema is getting more out of control, difficulty managing himself. Normally swelling in right foot goes down at night, but gets pretty extreme during the day. Wondering if wearing his belt causing increased swelling into his legs. 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 PT-OP-C Subjective Start: 11/05/23 16:25 Freq: Status: Active Protocol: Document 11/08/23 08:06 [facility]AK (Rec: 11/08/23 08:49 [facility] [id number]) OP-PT Subjective Patient Comments Patient Comments Wore 2 layers compression on right yesterday but only had 1 available for left. Was sitting on a tractor most of the day yesterday so concerned about increase in swelling. Willing to be bandaged today. PT-OP-F Manual Assessment Start: 11/05/23 16:25 Freq: Status: Active Protocol: Document 11/06/23 08:10 [facility] (Rec: 11/06/23 11:29 [facility] [id number]) Manual Assessments Soft Tissue Assessment Soft Tissue Mobility Assessment fibrosis jozef LE's right greataer than left, most significant mid calf distally on right PT-OP-J Posture/Palpation/Skin Start: 11/05/23 16:25 Freq: Status: Active Protocol: Document 11/06/23 08:10 [facility] (Rec: 11/06/23 11:29 [facility] [id number]) Palpation Assessment Location jozef LE's Palpation Findings Edema Palpation Details no redness or increased warmth Skin Assessment Edema Assessment jozef LEs Edema Type Pitting Edema Degree 3+ Edema Appearance Firm,Puffy,Taut Subjective Edema Description Tightness PT-OP-K Range of Motion Start: 11/05/23 16:25 Freq: Status: Active Protocol: Document 11/06/23 08:10 [facility] (Rec: 11/06/23 11:29 [facility] [id number]) Hip Goniometric Range of Motion Hip jozef Hip ROM WFL Yes Knee Goniometric Range of Motion Knee jozef Knee ROM WFL Yes Ankle and Foot Goniometric Range of Motion Ankle and Foot jozef Ankle/Foot ROM WFL Yes PT-OP-L Special Tests Start: 11/05/23 16:25 Freq: Status: Active Protocol: Document 11/06/23 08:10 [facility] (Rec: 11/06/23 11:29 [facility] [id number]) Special Tests Other Special Tests Special Tests Stemmer sign for lymphedema; positive jozef PT-OP-N Lymphedema Start: 11/05/23 16:25 Freq: Status: Active Protocol: Document 11/08/23 08:06 [facility] (Rec: 11/08/23 08:49 [facility] [id number]) Lymphedema Measurements Lower Extremity Circumference Measurements Right Affected MT Heads 27.8 cm Mid-foot 26.8 cm Medial Malleolus 31.2 cm 10 cm From Medial Malleolus 32.7 cm 20 cm From Medial Malleolus 41.5 cm 30 cm From Medial Malleolus 42.4 cm 40 cm From Medial Malleolus 40.8 cm 50 cm From Medial Malleolus 42.8 cm 60 cm From Medial Malleolus 49.8 cm 70 cm From Medial Malleolus 57 cm 80 cm From Medial Malleolus 27 cm Left Affected MT Heads 27 cm Mid-foot 27.8 cm Medial Malleolus 31.5 cm 10 cm From Medial Malleolus 31.8 cm 20 cm From Medial Malleolus 39.6 cm 30 cm From Medial Malleolus 39 cm 40 cm From Medial Malleolus 40 cm 50 cm From Medial Malleolus 43.2 cm 60 cm From Medial Malleolus 51.2 cm 70 cm From Medial Malleolus 57.3 cm Knee Joint 40 cm PT-OP-Q Treatments Start: 11/05/23 16:25 Freq: Status: Active Protocol: Document 11/08/23 08:06 [facility] (Rec: 11/08/23 09:43 [facility] [id number]) Cardio Equipment Recumbent Stepper (Sci-Fit) Duration (Minutes) 10 Resistance 1 Seat Position 13 Lymphedema Treatment Lymphedema Wrapping Body Location jozef LE's toes to knees Materials toe wraps, Tricofix size G, Comprilan (2), Artiflex 6,8,10 Sequential Lymphedema Exercises Comments Sci-Fit x 10 min as above after bandaging to facilitate lymphatic flow after MLD and bandaging Compression Garment Assessment Compression Garment Assessment Details Further discussion options, given loaner night garments thigh and lower leg for trial PT-OP-T Assessment and Plan Start: 11/05/23 16:25 Freq: Status: Active Protocol: Document 11/08/23 08:06 [facility] (Rec: 11/08/23 08:49 [facility] [id number]) Physical Therapy Assessment Impairments Impairments Activity Tolerance,Edema, Integument,Soft Tissue Mobility Goals Three Impairment fibrosis jozef LE's worst right ankle Penitentiary Goal (LTG) Decrease fibrosis of LE soft tissue to minimal level through complete decongestive therapy LTG Duration 02/05/24 Two Impairment lymphedema life impact scale 54% Short Term Goal (STG) Decrease Lymphedema Life Impact Scale to no greater than 40% as measure of improved activity tolerance and quality of life. STG Duration 12/22/23 Penitentiary Goal (LTG) Decrease Lymphedema Life Impact Scale to no greater than 2-% as measure of improved activity tolerance and quality of life. LTG Duration 02/05/24 One Impairment lymphedema jozef LE Short Term Goal (STG) Patient will be instructed in all aspects of lymphedema self -care to include skin care, elevation, self-massage, self- bandaging/compression options, and lymphedema exercises. STG Duration 12/22/23 Penitentiary Goal (LTG) Decrease patient?s lymphedema to a stable level (no increase or decrease greater than 1 cm over the course of 1 week), patient to be independent with all aspects of self-care for lymphedema, and will obtain appropriate compression garment for lymphedema management in the home. LTG Duration 02/05/24 Assessment Summary Assessment Patient with increase in foot and ankle measurements but decrease calf, variable at knees and upper thighs. Multual decision for bandaging to get better distal compression , starting with knee high due to patient feeling claustraphobic. Patient brought [employer] leg pump to show PT; has foot strap but no pumping of feet, do not feel adequate for lymphedema management. Physical Therapy Plan Therapeutic Interventions Therapeutic Interventions Home Exercise Program, Lymphedema Management,Manual Therapy,Patient/Caregiver Education,Self-Care/Home Management,Taping,Therapeutic Activities,Therapeutic Exercises Modalities Vasopneumatic Devices Other Referrals/Consults Referrals/Consults Recommended Referral to [facility] in [place] for evaluation for appropriate compression garments; consider tights, 30- 40 mm Hg, or thigh high with compression shorts. May need custom, and will need donning/ doffing aid. Next Visit Focus/Plan Next Note Type Treatment Note Next Visit Plan Evaluate response to bandaging , continue CDT.
--- NOTE | 2023-11-09 08:04 | PT-OP ANOTE ---
cancelled due to ill.
--- NOTE | 2023-11-13 09:37 | PT-OP ANOTE ---
patient cancelled PT visit per electronic reminder system
--- NOTE | 2023-11-20 09:13 | PT.OTN ---
Current Diagnoses Lymphedema, not elsewhere classified (11/20/23) Soft tissue disorder, unspecified (11/20/23) Physical Therapy Treatment Note PT-OP-A Visit Information Start: 11/05/23 16:25 Freq: Status: Active Protocol: Document 11/20/23 08:15 SAK (Rec: 11/20/23 09:12 SAK [id number]) Out-Patient Physical Therapy Visit Information Visit Information Visit Type Treatment Note Visit Start Time 08:15 Visit Number 4 Evaluation Information Evaluation Date 11/06/23 PT-OP-B Current Condition Start: 11/05/23 16:25 Freq: Status: Active Protocol: Document 11/20/23 08:15 SAK (Rec: 11/20/23 09:12 SAK [id number]) Current Condition History of Current Condition Onset Date 39 y/0 Current Complaints lymphedema jozef LE's right greater than left. History of Current Condition development of lymphedema no known reason, thinks something to do with vasectomy, low grade infection on one side. Had to be hospitalized 1x due to infection/cellulitis. , frequently had to have IV antibiotics, would have development of cellulitis, Since 58 y/o, flare ups decreased to about once every couple years. Lately increase in swelling early summer, had dose of antibiots. Last saw doctor 1 month ago; had heart work up, low back workup, CT scan negative. Wearing 20-30 mm Hg stockings, has 30-40 mm Hg but they are a bit much, too much to get on and off. Has sequential pneumatic pump through PT in [place]. Has vibration plate, and massage plate for his feet. Also has neuropathy right foot. Feeling like his lymphedema is getting more out of control, difficulty managing himself. Normally swelling in right foot goes down at night, but gets pretty extreme during the day. Wondering if wearing his belt causing increased swelling into his legs. 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 Only did 5 of 7 days of new antibiotics, has been cultured . Hasn't gone to [facility]. 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 Worse toward the end of the day. Has had 2 bouts this year, previously has been able to go 3-4 years in between bouts. States stress seems to contribute. Has been able to wear the double stockings PT-OP-F Manual Assessment Start: 11/05/23 16:25 Freq: Status: Active Protocol: Document 11/06/23 08:10 SAK (Rec: 11/06/23 11:29 [facility] [id number]) Manual Assessments Soft Tissue Assessment Soft Tissue Mobility Assessment fibrosis jozef LE's right greataer than left, most significant mid calf distally on right PT-OP-J Posture/Palpation/Skin Start: 11/05/23 16:25 Freq: Status: Active Protocol: Document 11/20/23 08:15 SAK (Rec: 11/20/23 09:13 [facility] [id number]) Palpation Assessment Location jozef LE's Palpation Findings Edema Palpation Details No increased redness or warmth left LE, light pink color right lower leg but without increased warmth. PT-OP-K Range of Motion Start: 11/05/23 16:25 Freq: Status: Active Protocol: Document 11/06/23 08:10 SAK (Rec: 11/06/23 11:29 [facility] [id number]) Hip Goniometric Range of Motion Hip jozef Hip ROM WFL Yes Knee Goniometric Range of Motion Knee jozef Knee ROM WFL Yes Ankle and Foot Goniometric Range of Motion Ankle and Foot jozef Ankle/Foot ROM WFL Yes PT-OP-L Special Tests Start: 11/05/23 16:25 Freq: Status: Active Protocol: Document 11/06/23 08:10 SAK (Rec: 11/06/23 11:29 [facility] [id number]) Special Tests Other Special Tests Special Tests Stemmer sign for lymphedema; positive jozef PT-OP-N Lymphedema Start: 11/05/23 16:25 Freq: Status: Active Protocol: Document 11/20/23 08:15 SAK (Rec: 11/20/23 09:12 [facility] [id number]) Lymphedema Measurements Lower Extremity Circumference Measurements Right Affected MT Heads 26.9 cm Mid-foot 27.4 cm Medial Malleolus 32 cm 10 cm From Medial Malleolus 33.7 cm 20 cm From Medial Malleolus 44 cm 30 cm From Medial Malleolus 44.6 cm 40 cm From Medial Malleolus 39.8 cm 50 cm From Medial Malleolus 42.2 cm 60 cm From Medial Malleolus 50.1 cm 70 cm From Medial Malleolus 58.2 cm Knee Joint 39.8 cm Left Affected MT Heads 26 cm Mid-foot 26.6 cm Medial Malleolus 28.8 cm 10 cm From Medial Malleolus 29 cm 20 cm From Medial Malleolus 36.2 cm 30 cm From Medial Malleolus 35.4 cm 40 cm From Medial Malleolus 39 cm 50 cm From Medial Malleolus 42.5 cm 60 cm From Medial Malleolus 50.7 cm 70 cm From Medial Malleolus 57.2 cm Knee Joint 39 cm PT-OP-Q Treatments Start: 11/05/23 16:25 Freq: Status: Active Protocol: Document 11/20/23 08:15 [facility] (Rec: 11/20/23 09:12 [facility] [id number]) Lymphedema Treatment Manual Lymphatic Drainage Location right LE Duration 30 Lymphedema Wrapping Materials Pt wearing double 20-30 mm Hg thigh high right, 30-40 mm Hg thigh high left (tried 30-40 on right but cut into his ankle, feel he will likely need custom on right) Compression Garment Assessment Compression Garment Assessment Details Good fit of garments as above PT-OP-T Assessment and Plan Start: 11/05/23 16:25 Freq: Status: Active Protocol: Document 11/20/23 08:15 [facility] (Rec: 11/20/23 09:12 [facility] [id number]) Physical Therapy Assessment Impairments Impairments Activity Tolerance,Edema, Integument,Soft Tissue Mobility Goals Three Impairment fibrosis jozef LE's worst right ankle Longterm Goal (LTG) Decrease fibrosis of LE soft tissue to minimal level through complete decongestive therapy LTG Duration 02/05/24 Two Impairment lymphedema life impact scale 54% Short Term Goal (STG) Decrease Lymphedema Life Impact Scale to no greater than 40% as measure of improved activity tolerance and quality of life. STG Duration 12/22/23 Longterm Goal (LTG) Decrease Lymphedema Life Impact Scale to no greater than 2-% as measure of improved activity tolerance and quality of life. LTG Duration 02/05/24 One Impairment lymphedema jozef LE Short Term Goal (STG) Patient will be instructed in all aspects of lymphedema self -care to include skin care, elevation, self-massage, self- bandaging/compression options, and lymphedema exercises. STG Duration 12/22/23 Longterm Goal (LTG) Decrease patient?s lymphedema to a stable level (no increase or decrease greater than 1 cm over the course of 1 week), patient to be independent with all aspects of self-care for lymphedema, and will obtain appropriate compression garment for lymphedema management in the home. LTG Duration 02/05/24 Assessment Summary Assessment Patient measurements smaller on left LE and larger on right today. Some pink coloration right lower leg but no increased warmth, no fever. Gentle MLD jozef LE's today with opp side sequential pneumatic pump. Patient continues with self care for lymphedema. Physical Therapy Plan Frequency and Duration Frequency of Treatment 20 Duration of treatment (weeks) 12 Plan of Care Start Date 11/06/23 Plan of Care End Date 02/05/24 Therapeutic Interventions Therapeutic Interventions Home Exercise Program, Lymphedema Management,Manual Therapy,Patient/Caregiver Education,Self-Care/Home Management,Taping,Therapeutic Activities,Therapeutic Exercises Modalities Vasopneumatic Devices Other Referrals/Consults Referrals/Consults Recommended Waiting for leg to calm down. Next Visit Focus/Plan Next Note Type Treatment Note Next Visit Plan Continue CDT as tolerated.
--- NOTE | 2023-11-22 09:41 | PT.OTN ---
Current Diagnoses Lymphedema, not elsewhere classified (11/22/23) Soft tissue disorder, unspecified (11/22/23) Physical Therapy Treatment Note PT-OP-A Visit Information Start: 11/05/23 16:25 Freq: Status: Active Protocol: Document 11/22/23 08:13 SAK (Rec: 11/22/23 08:51 [facility] [id number]) Out-Patient Physical Therapy Visit Information Visit Information Visit Type Treatment Note Visit Start Time 08:15 Visit Stop Time 08:55 Visit Number 5 Evaluation Information Evaluation Date 11/06/23 PT-OP-B Current Condition Start: 11/05/23 16:25 Freq: Status: Active Protocol: Document 11/22/23 08:13 SAK (Rec: 11/22/23 08:51 [facility] [id number]) Current Condition History of Current Condition Onset Date 39 y/0 Current Complaints lymphedema jozef LE's right greater than left. History of Current Condition development of lymphedema no known reason, thinks something to do with vasectomy, low grade infection on one side. Had to be hospitalized 1x due to infection/cellulitis. , frequently had to have IV antibiotics, would have development of cellulitis, Since 58 y/o, flare ups decreased to about once every couple years. Lately increase in swelling early summer, had dose of antibiots. Last saw doctor 1 month ago; had heart work up, low back workup, CT scan negative. Wearing 20-30 mm Hg stockings, has 30-40 mm Hg but they are a bit much, too much to get on and off. Has sequential pneumatic pump through PT in [place]. Has vibration plate, and massage plate for his feet. Also has neuropathy right foot. Feeling like his lymphedema is getting more out of control, difficulty managing himself. Normally swelling in right foot goes down at night, but gets pretty extreme during the day. Wondering if wearing his belt causing increased swelling into his legs. 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 Using foot massager seems to be helping with his neuropathy. PT-OP-F Manual Assessment Start: 11/05/23 16:25 Freq: Status: Active Protocol: Document 11/06/23 08:10 SAK (Rec: 11/06/23 11:29 [facility] [id number]) Manual Assessments Soft Tissue Assessment Soft Tissue Mobility Assessment fibrosis jozef LE's right greataer than left, most significant mid calf distally on right PT-OP-J Posture/Palpation/Skin Start: 11/05/23 16:25 Freq: Status: Active Protocol: Document 11/20/23 08:15 SAK (Rec: 11/20/23 09:13 [facility] [id number]) Palpation Assessment Location jozef LE's Palpation Findings Edema Palpation Details No increased redness or warmth left LE, light pink color right lower leg but without increased warmth. PT-OP-K Range of Motion Start: 11/05/23 16:25 Freq: Status: Active Protocol: Document 11/06/23 08:10 SAK (Rec: 11/06/23 11:29 [facility] [id number]) Hip Goniometric Range of Motion Hip jozef Hip ROM WFL Yes Knee Goniometric Range of Motion Knee jozef Knee ROM WFL Yes Ankle and Foot Goniometric Range of Motion Ankle and Foot jozef Ankle/Foot ROM WFL Yes PT-OP-L Special Tests Start: 11/05/23 16:25 Freq: Status: Active Protocol: Document 11/06/23 08:10 SAK (Rec: 11/06/23 11:29 [facility] [id number]) Special Tests Other Special Tests Special Tests Stemmer sign for lymphedema; positive jozef PT-OP-N Lymphedema Start: 11/05/23 16:25 Freq: Status: Active Protocol: Document 11/22/23 08:13 SAK (Rec: 11/22/23 08:51 [facility] [id number]) Lymphedema Measurements Lower Extremity Circumference Measurements Right Affected MT Heads 26.8 cm Mid-foot 26.2 cm Medial Malleolus 29 cm 10 cm From Medial Malleolus 29.4 cm 20 cm From Medial Malleolus 36.5 cm 30 cm From Medial Malleolus 35 cm 40 cm From Medial Malleolus 39.5 cm 50 cm From Medial Malleolus 43.4 cm 60 cm From Medial Malleolus 52 cm 70 cm From Medial Malleolus 57.5 cm Knee Joint 39.5 cm Left Affected MT Heads 26.8 cm Mid-foot 26.7 cm Medial Malleolus 30.4 cm 10 cm From Medial Malleolus 34.4 cm 20 cm From Medial Malleolus 44 cm 30 cm From Medial Malleolus 43.9 cm 40 cm From Medial Malleolus 39.8 cm 50 cm From Medial Malleolus 42.5 cm 60 cm From Medial Malleolus 49.8 cm 70 cm From Medial Malleolus 57.8 cm Knee Joint 41 cm PT-OP-Q Treatments Start: 11/05/23 16:25 Freq: Status: Active Protocol: Document 11/22/23 08:13 [facility] (Rec: 11/22/23 08:51 [facility] [id number]) Lymphedema Treatment Manual Lymphatic Drainage Location jozef LE's Duration 30 Lymphedema Wrapping Materials Pt wearing double 20-30 mm Hg thigh high right, 30-40 mm Hg thigh high left (tried 30-40 on right but cut into his ankle, feel he will likely need custom on right) Compression Garment Assessment Compression Garment Assessment Details Good fit of garments as above PT-OP-T Assessment and Plan Start: 11/05/23 16:25 Freq: Status: Active Protocol: Document 11/22/23 08:13 [facility] (Rec: 11/22/23 08:51 [facility] [id number]) Physical Therapy Assessment Impairments Impairments Activity Tolerance,Edema, Integument,Soft Tissue Mobility Goals Three Impairment fibrosis jozef LE's worst right ankle Mcfp Goal (LTG) Decrease fibrosis of LE soft tissue to minimal level through complete decongestive therapy LTG Duration 02/05/24 Two Impairment lymphedema life impact scale 54% Short Term Goal (STG) Decrease Lymphedema Life Impact Scale to no greater than 40% as measure of improved activity tolerance and quality of life. STG Duration 12/22/23 Staff Accountant Goal (LTG) Decrease Lymphedema Life Impact Scale to no greater than 2-% as measure of improved activity tolerance and quality of life. LTG Duration 02/05/24 One Impairment lymphedema jozef LE Short Term Goal (STG) Patient will be instructed in all aspects of lymphedema self -care to include skin care, elevation, self-massage, self- bandaging/compression options, and lymphedema exercises. STG Duration 12/22/23 Staff Accountant Goal (LTG) Decrease patient?s lymphedema to a stable level (no increase or decrease greater than 1 cm over the course of 1 week), patient to be independent with all aspects of self-care for lymphedema, and will obtain appropriate compression garment for lymphedema management in the home. LTG Duration 02/05/24 Assessment Summary Assessment Patient measurements again smaller on left and larger on right with increased redness on right LE. Instructed patient to call for doctor's appointment, he called while in PT today, feel he has further cellulitis in his right leg. Also didn't wear double compression today prior to PT, states swelling down this am. Temperature 97.9. No c/o chills or other symptoms. Physical Therapy Plan Frequency and Duration Frequency of Treatment 20 Duration of treatment (weeks) 12 Plan of Care Start Date 11/06/23 Plan of Care End Date 02/05/24 Therapeutic Interventions Therapeutic Interventions Home Exercise Program, Lymphedema Management,Manual Therapy,Patient/Caregiver Education,Self-Care/Home Management,Taping,Therapeutic Activities,Therapeutic Exercises Modalities Vasopneumatic Devices Next Visit Focus/Plan Next Note Type Treatment Note Next Visit Plan Continue CDT as tolerated pending outcome of doctor's appointment. Consider bandaging again.
--- NOTE | 2023-11-27 08:48 | PT.OTN ---
Current Diagnoses Lymphedema, not elsewhere classified (11/27/23) Soft tissue disorder, unspecified (11/27/23) Physical Therapy Treatment Note PT-OP-A Visit Information Start: 11/05/23 16:25 Freq: Status: Active Protocol: Document 11/27/23 08:16 [facility] (Rec: 11/27/23 08:47 [facility] [id number]) Out-Patient Physical Therapy Visit Information Visit Information Visit Type Treatment Note Visit Note Went to [facility], things looking good in heart but states ultrasound in 1 year ago showed vein deterioration; likely cause of lymphedema. Has appiontment at [facility] in 1 -2 weeks. Is going to be taking more antibiotics, picks up today. Reports 30-40 mm Hg compression stocking cuts into his right foot and ankle, but he is able to wear layered 2 20-30 mm Hg fine. Visit Start Time 08:15 Visit Stop Time 08:55 Visit Number 6 Evaluation Information Evaluation Date 11/06/23 PT-OP-B Current Condition Start: 11/05/23 16:25 Freq: Status: Active Protocol: Document 11/27/23 08:16 [facility] (Rec: 11/27/23 08:47 [facility] [id number]) Current Condition History of Current Condition Onset Date 39 y/0 Current Complaints lymphedema jozef LE's right greater than left. History of Current Condition development of lymphedema no known reason, thinks something to do with vasectomy, low grade infection on one side. Had to be hospitalized 1x due to infection/cellulitis. , frequently had to have IV antibiotics, would have development of cellulitis, Since 58 y/o, flare ups decreased to about once every couple years. Lately increase in swelling early summer, had dose of antibiots. Last saw doctor 1 month ago; had heart work up, low back workup, CT scan negative. Wearing 20-30 mm Hg stockings, has 30-40 mm Hg but they are a bit much, too much to get on and off. Has sequential pneumatic pump through PT in [place]. Has vibration plate, and massage plate for his feet. Also has neuropathy right foot. Feeling like his lymphedema is getting more out of control, difficulty managing himself. Normally swelling in right foot goes down at night, but gets pretty extreme during the day. Wondering if wearing his belt causing increased swelling into his legs. 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 Using foot massager seems to be helping with his neuropathy. PT-OP-F Manual Assessment Start: 11/05/23 16:25 Freq: Status: Active Protocol: Document 11/06/23 08:10 SAK (Rec: 11/06/23 11:29 [facility] [id number]) Manual Assessments Soft Tissue Assessment Soft Tissue Mobility Assessment fibrosis jozef LE's right greataer than left, most significant mid calf distally on right PT-OP-J Posture/Palpation/Skin Start: 11/05/23 16:25 Freq: Status: Active Protocol: Document 11/20/23 08:15 SAK (Rec: 11/20/23 09:13 [facility] [id number]) Palpation Assessment Location jozef LE's Palpation Findings Edema Palpation Details No increased redness or warmth left LE, light pink color right lower leg but without increased warmth. PT-OP-K Range of Motion Start: 11/05/23 16:25 Freq: Status: Active Protocol: Document 11/06/23 08:10 SAK (Rec: 11/06/23 11:29 [facility] [id number]) Hip Goniometric Range of Motion Hip jozef Hip ROM WFL Yes Knee Goniometric Range of Motion Knee jozef Knee ROM WFL Yes Ankle and Foot Goniometric Range of Motion Ankle and Foot jozef Ankle/Foot ROM WFL Yes PT-OP-L Special Tests Start: 11/05/23 16:25 Freq: Status: Active Protocol: Document 11/06/23 08:10 SAK (Rec: 11/06/23 11:29 [facility] [id number]) Special Tests Other Special Tests Special Tests Stemmer sign for lymphedema; positive jozef PT-OP-N Lymphedema Start: 11/05/23 16:25 Freq: Status: Active Protocol: Document 11/27/23 08:16 SAK (Rec: 11/27/23 08:47 [facility] [id number]) Lymphedema Measurements Lower Extremity Circumference Measurements Right Affected MT Heads 27.4 cm Mid-foot 26.7 cm Medial Malleolus 30 cm 10 cm From Medial Malleolus 33.8 cm 20 cm From Medial Malleolus 43.3 cm 30 cm From Medial Malleolus 43.5 cm 40 cm From Medial Malleolus 39.4 cm 50 cm From Medial Malleolus 43.4 cm 60 cm From Medial Malleolus 51.7 cm 70 cm From Medial Malleolus 58.5 cm Knee Joint 39.4 cm Left Affected MT Heads 27 cm Mid-foot 26.4 cm Medial Malleolus 30 cm 10 cm From Medial Malleolus 29.7 cm 20 cm From Medial Malleolus 37.6 cm 30 cm From Medial Malleolus 36.7 cm 40 cm From Medial Malleolus 39.6 cm 50 cm From Medial Malleolus 42.5 cm 60 cm From Medial Malleolus 50.8 cm 70 cm From Medial Malleolus 58.9 cm Knee Joint 39.8 cm PT-OP-Q Treatments Start: 11/05/23 16:25 Freq: Status: Active Protocol: Document 11/27/23 08:16 [facility] (Rec: 11/27/23 08:47 [facility] [id number]) Lymphedema Treatment Manual Lymphatic Drainage Location jozef LE's Duration 45 Lymphedema Wrapping Materials Pt wearing double 20-30 mm Hg thigh high right, 30-40 mm Hg thigh high left (tried 30-40 on right but cut into his ankle, feel he will likely need custom on right) Other toe bandaging right Compression Garment Assessment Compression Garment Assessment Details Good fit of garments as above PT-OP-T Assessment and Plan Start: 11/05/23 16:25 Freq: Status: Active Protocol: Document 11/27/23 08:16 [facility] (Rec: 11/27/23 08:47 [facility] [id number]) Physical Therapy Assessment Impairments Impairments Activity Tolerance,Edema, Integument,Soft Tissue Mobility Goals Three Impairment fibrosis jozef LE's worst right ankle Quality Assurance Clerk Goal (LTG) Decrease fibrosis of LE soft tissue to minimal level through complete decongestive therapy LTG Duration 02/05/24 Two Impairment lymphedema life impact scale 54% Short Term Goal (STG) Decrease Lymphedema Life Impact Scale to no greater than 40% as measure of improved activity tolerance and quality of life. STG Duration 12/22/23 Quality Assurance Clerk Goal (LTG) Decrease Lymphedema Life Impact Scale to no greater than 2-% as measure of improved activity tolerance and quality of life. LTG Duration 02/05/24 One Impairment lymphedema jozef LE Short Term Goal (STG) Patient will be instructed in all aspects of lymphedema self -care to include skin care, elevation, self-massage, self- bandaging/compression options, and lymphedema exercises. STG Duration 12/22/23 Quality Assurance Clerk Goal (LTG) Decrease patient?s lymphedema to a stable level (no increase or decrease greater than 1 cm over the course of 1 week), patient to be independent with all aspects of self-care for lymphedema, and will obtain appropriate compression garment for lymphedema management in the home. LTG Duration 02/05/24 Assessment Summary Assessment Patient measurements continue to increase right due to infection, starting antibiotics today. Has made an appointment with [facility] in [place] for consult regarding compression garments , hopeful will Physical Therapy Plan Frequency and Duration Frequency of Treatment 20 Duration of treatment (weeks) 12 Plan of Care Start Date 11/06/23 Plan of Care End Date 02/05/24 Therapeutic Interventions Therapeutic Interventions Home Exercise Program, Lymphedema Management,Manual Therapy,Patient/Caregiver Education,Self-Care/Home Management,Taping,Therapeutic Activities,Therapeutic Exercises Modalities Vasopneumatic Devices Next Visit Focus/Plan Next Note Type Treatment Note Next Visit Plan Assess bandaging of toes.
--- NOTE | 2023-11-29 08:41 | PT.OTN ---
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 Has Visit Start Time 08:14 Visit Stop Time 08:54 Visit Number 7 Evaluation Information Evaluation Date 11/06/23 PT-OP-B Current Condition Start: 11/05/23 16:25 Freq: Status: Active Protocol: Document 11/29/23 08:09 [facility] (Rec: 11/29/23 08:41 [facility] [id number]) Current Condition History of Current Condition Onset Date 39 y/0 Current Complaints lymphedema jozef LE's right greater than left. History of Current Condition development of lymphedema no known reason, thinks something to do with vasectomy, low grade infection on one side. Had to be hospitalized 1x due to infection/cellulitis. , frequently had to have IV antibiotics, would have development of cellulitis, Since 58 y/o, flare ups decreased to about once every couple years. Lately increase in swelling early summer, had dose of antibiots. Last saw doctor 1 month ago; had heart work up, low back workup, CT scan negative. Wearing 20-30 mm Hg stockings, has 30-40 mm Hg but they are a bit much, too much to get on and off. Has sequential pneumatic pump through PT in [place]. Has vibration plate, and massage plate for his feet. Also has neuropathy right foot. Feeling like his lymphedema is getting more out of control, difficulty managing himself. Normally swelling in right foot goes down at night, but gets pretty extreme during the day. Wondering if wearing his belt causing increased swelling into his legs. 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 Did't see a difference with toe badaging from last time. Goes to see [facility] next week for fitting of compression. On antibiotics x 2 days26.3 PT-OP-F Manual Assessment Start: 11/05/23 16:25 Freq: Status: Active Protocol: Document 11/06/23 08:10 [facility] (Rec: 11/06/23 11:29 [facility] [id number]) Manual Assessments Soft Tissue Assessment Soft Tissue Mobility Assessment fibrosis jozef LE's right greataer than left, most significant mid calf distally on right PT-OP-J Posture/Palpation/Skin Start: 11/05/23 16:25 Freq: Status: Active Protocol: Document 11/20/23 08:15 [facility] (Rec: 11/20/23 09:13 [facility] [id number]) Palpation Assessment Location jozef LE's Palpation Findings Edema Palpation Details No increased redness or warmth left LE, light pink color right lower leg but without increased warmth. PT-OP-K Range of Motion Start: 11/05/23 16:25 Freq: Status: Active Protocol: Document 11/06/23 08:10 [facility] (Rec: 11/06/23 11:29 [facility] [id number]) Hip Goniometric Range of Motion Hip jozef Hip ROM WFL Yes Knee Goniometric Range of Motion Knee jozef Knee ROM WFL Yes Ankle and Foot Goniometric Range of Motion Ankle and Foot jozef Ankle/Foot ROM WFL Yes PT-OP-L Special Tests Start: 11/05/23 16:25 Freq: Status: Active Protocol: Document 11/06/23 08:10 [facility] (Rec: 11/06/23 11:29 [facility] [id number]) Special Tests Other Special Tests Special Tests Stemmer sign for lymphedema; positive jozef PT-OP-N Lymphedema Start: 11/05/23 16:25 Freq: Status: Active Protocol: Document 11/29/23 08:09 [facility] (Rec: 11/29/23 08:41 [facility] [id number]) Lymphedema Measurements Lower Extremity Circumference Measurements Right Affected MT Heads 27.2 cm Mid-foot 25.8 cm Medial Malleolus 29.4 cm 10 cm From Medial Malleolus 32.7 cm 20 cm From Medial Malleolus 42.8 cm 30 cm From Medial Malleolus 42 cm 40 cm From Medial Malleolus 40.4 cm 50 cm From Medial Malleolus 42.3 cm 60 cm From Medial Malleolus 52 cm 70 cm From Medial Malleolus 57.4 cm Knee Joint 40.4 cm Left Affected MT Heads 26.3 cm Mid-foot 26.2 cm Medial Malleolus 29 cm 10 cm From Medial Malleolus 29.4 cm 20 cm From Medial Malleolus 37.3 cm 30 cm From Medial Malleolus 35.9 cm 40 cm From Medial Malleolus 39.2 cm 50 cm From Medial Malleolus 42.3 cm 60 cm From Medial Malleolus 51.4 cm 70 cm From Medial Malleolus 56.5 cm Knee Joint 39.2 cm PT-OP-Q Treatments Start: 11/05/23 16:25 Freq: Status: Active Protocol: Document 11/29/23 08:09 [facility] (Rec: 11/29/23 08:41 [facility] [id number]) Lymphedema Treatment Manual Lymphatic Drainage Location jozef LE's Duration 45 Lymphedema Wrapping Materials Pt wearing double 20-30 mm Hg thigh high right, 30-40 mm Hg thigh high left (tried 30-40 on right but cut into his ankle, feel he will likely need custom on right) Other no toe bandaging. Sequential Lymphedema Exercises Comments Sci-Fit x 10 min as above after bandaging to facilitate lymphatic flow after MLD and bandaging Compression Garment Assessment Compression Garment Assessment Details Good fit of garments as above PT-OP-R Modalities Start: 11/05/23 16:25 Freq: Status: Active Protocol: Document 11/29/23 08:09 [facility] (Rec: 11/29/23 08:41 [facility] [id number]) Compression Pump Treatment Treatment Location right LE Pressure Amount (mmHg) (mmHG) 40 Inflation Time (Seconds) 30 Deflation Time (Seconds) 10 Treatment Tolerance Excellent PT-OP-T Assessment and Plan Start: 11/05/23 16:25 Freq: Status: Active Protocol: Document 11/29/23 08:09 [facility] (Rec: 11/29/23 08:41 [facility] [id number]) Physical Therapy Assessment Impairments Impairments Activity Tolerance,Edema, Integument,Soft Tissue Mobility Goals Three Impairment fibrosis jozef LE's worst right ankle [facility] Goal (LTG) Decrease fibrosis of LE soft tissue to minimal level through complete decongestive therapy LTG Duration 02/05/24 Two Impairment lymphedema life impact scale 54% Short Term Goal (STG) Decrease Lymphedema Life Impact Scale to no greater than 40% as measure of improved activity tolerance and quality of life. STG Duration 12/22/23 [facility] Goal (LTG) Decrease Lymphedema Life Impact Scale to no greater than 2-% as measure of improved activity tolerance and quality of life. LTG Duration 02/05/24 One Impairment lymphedema jozef LE Short Term Goal (STG) Patient will be instructed in all aspects of lymphedema self -care to include skin care, elevation, self-massage, self- bandaging/compression options, and lymphedema exercises. STG Duration 12/22/23 [facility] Goal (LTG) Decrease patient?s lymphedema to a stable level (no increase or decrease greater than 1 cm over the course of 1 week), patient to be independent with all aspects of self-care for lymphedema, and will obtain appropriate compression garment for lymphedema management in the home. LTG Duration 02/05/24 Assessment Summary Assessment Decreased circumferential measurements bilateral LE's, patient continues with self care, reminded of using lotion as right LE very dry today, avenue for infection. Physical Therapy Plan Frequency and Duration Frequency of Treatment 20 Duration of treatment (weeks) 12 Plan of Care Start Date 11/06/23 Plan of Care End Date 02/05/24 Therapeutic Interventions Therapeutic Interventions Home Exercise Program, Lymphedema Management,Manual Therapy,Patient/Caregiver Education,Self-Care/Home Management,Taping,Therapeutic Activities,Therapeutic Exercises Modalities Vasopneumatic Devices Next Visit Focus/Plan Next Note Type Treatment Note Next Visit Plan Continue CDT, patient to bring bandages next session.
--- NOTE | 2023-12-04 08:47 | PT.OTN ---
Current Diagnoses Lymphedema, not elsewhere classified (12/04/23) Soft tissue disorder, unspecified (12/04/23) Physical Therapy Treatment Note PT-OP-A Visit Information Start: 11/05/23 16:25 Freq: Status: Active Protocol: Document 12/04/23 08:23 [facility] (Rec: 12/04/23 08:46 [facility] [id number]) Out-Patient Physical Therapy Visit Information Visit Information Visit Type Treatment Note Visit Start Time 08:14 Visit Stop Time 08:54 Visit Number 8 PT-OP-B Current Condition Start: 11/05/23 16:25 Freq: Status: Active Protocol: Document 12/04/23 08:23 [facility] (Rec: 12/04/23 08:46 [facility] [id number]) Current Condition History of Current Condition Onset Date 39 y/0 Current Complaints lymphedema jozef LE's right greater than left. History of Current Condition development of lymphedema no known reason, thinks something to do with vasectomy, low grade infection on one side. Had to be hospitalized 1x due to infection/cellulitis. , frequently had to have IV antibiotics, would have development of cellulitis, Since 58 y/o, flare ups decreased to about once every couple years. Lately increase in swelling early summer, had dose of antibiots. Last saw doctor 1 month ago; had heart work up, low back workup, CT scan negative. Wearing 20-30 mm Hg stockings, has 30-40 mm Hg but they are a bit much, too much to get on and off. Has sequential pneumatic pump through PT in [place]. Has vibration plate, and massage plate for his feet. Also has neuropathy right foot. Feeling like his lymphedema is getting more out of control, difficulty managing himself. Normally swelling in right foot goes down at night, but gets pretty extreme during the day. Wondering if wearing his belt causing increased swelling into his legs. 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 INterested in pneumatic pump to help him manage his lymphedema. PT-OP-F Manual Assessment Start: 11/05/23 16:25 Freq: Status: Active Protocol: Document 11/06/23 08:10 [facility] (Rec: 11/06/23 11:29 [facility] [id number]) Manual Assessments Soft Tissue Assessment Soft Tissue Mobility Assessment fibrosis jozef LE's right greataer than left, most significant mid calf distally on right PT-OP-J Posture/Palpation/Skin Start: 11/05/23 16:25 Freq: Status: Active Protocol: Document 11/20/23 08:15 [facility] (Rec: 11/20/23 09:13 [facility] [id number]) Palpation Assessment Location jozef LE's Palpation Findings Edema Palpation Details No increased redness or warmth left LE, light pink color right lower leg but without increased warmth. PT-OP-K Range of Motion Start: 11/05/23 16:25 Freq: Status: Active Protocol: Document 11/06/23 08:10 [facility] (Rec: 11/06/23 11:29 [facility] [id number]) Hip Goniometric Range of Motion Hip jozef Hip ROM WFL Yes Knee Goniometric Range of Motion Knee jozef Knee ROM WFL Yes Ankle and Foot Goniometric Range of Motion Ankle and Foot jozef Ankle/Foot ROM WFL Yes PT-OP-L Special Tests Start: 11/05/23 16:25 Freq: Status: Active Protocol: Document 11/06/23 08:10 [facility] (Rec: 11/06/23 11:29 [facility] [id number]) Special Tests Other Special Tests Special Tests Stemmer sign for lymphedema; positive jozef PT-OP-N Lymphedema Start: 11/05/23 16:25 Freq: Status: Active Protocol: Document 12/04/23 08:23 [facility] (Rec: 12/04/23 08:46 [facility] [id number]) Lymphedema Measurements Lower Extremity Circumference Measurements Right Affected MT Heads 26.3 cm Mid-foot 26.6 cm Medial Malleolus 32.7 cm 10 cm From Medial Malleolus 33 cm 20 cm From Medial Malleolus 43.3 cm 30 cm From Medial Malleolus 42.2 cm 40 cm From Medial Malleolus 41 cm 50 cm From Medial Malleolus 43 cm 60 cm From Medial Malleolus 51 cm 70 cm From Medial Malleolus 60.1 cm Knee Joint 41.3 cm Left Affected MT Heads 27.4 cm Mid-foot 27.1 cm Medial Malleolus 30.4 cm 10 cm From Medial Malleolus 30.5 cm 20 cm From Medial Malleolus 38 cm 30 cm From Medial Malleolus 37.3 cm 40 cm From Medial Malleolus 39.9 cm 50 cm From Medial Malleolus 42.7 cm 60 cm From Medial Malleolus 52.6 cm 70 cm From Medial Malleolus 59.7 cm Knee Joint 39.9 cm PT-OP-Q Treatments Start: 11/05/23 16:25 Freq: Status: Active Protocol: Document 12/04/23 08:23 [facility] (Rec: 12/04/23 08:46 [facility] [id number]) Lymphedema Treatment Manual Lymphatic Drainage Location jozef LE's Duration 45 Comments REview technique for self MLD, patient noted to be massaging toward distal at times, emphasis on massaging toward proximal sites. Lymphedema Wrapping Materials Pt wearing double 20-30 mm Hg thigh high right, 30-40 mm Hg thigh high left (tried 30-40 on right but cut into his ankle, feel he will likely need custom on right) Other no toe bandaging. Sequential Lymphedema Exercises Comments Sci-Fit x 10 min as above after bandaging to facilitate lymphatic flow after MLD and bandaging Compression Garment Assessment Compression Garment Assessment Details Good fit of garments as above Patient Education Compression Garments discussed options and given online resources to consider. Other Other instructed to make appointment with [facility] for end of next week for fitting. PT-OP-R Modalities Start: 11/05/23 16:25 Freq: Status: Active Protocol: Document 12/04/23 08:23 [facility] (Rec: 12/04/23 08:47 [facility] [id number]) Compression Pump Treatment Treatment Location right LE Pressure Amount (mmHg) (mmHG) 40 Inflation Time (Seconds) 30 Deflation Time (Seconds) 10 Treatment Tolerance Excellent PT-OP-T Assessment and Plan Start: 11/05/23 16:25 Freq: Status: Active Protocol: Document 12/04/23 08:23 [facility] (Rec: 12/04/23 08:46 [facility] [id number]) Physical Therapy Assessment Impairments Impairments Activity Tolerance,Edema, Integument,Soft Tissue Mobility Goals Three Impairment fibrosis jozef LE's worst right ankle [facility] Goal (LTG) Decrease fibrosis of LE soft tissue to minimal level through complete decongestive therapy LTG Duration 02/05/24 Two Impairment lymphedema life impact scale 54% Short Term Goal (STG) Decrease Lymphedema Life Impact Scale to no greater than 40% as measure of improved activity tolerance and quality of life. STG Duration 12/22/23 [facility] Goal (LTG) Decrease Lymphedema Life Impact Scale to no greater than 2-% as measure of improved activity tolerance and quality of life. LTG Duration 02/05/24 One Impairment lymphedema jozef LE Short Term Goal (STG) Patient will be instructed in all aspects of lymphedema self -care to include skin care, elevation, self-massage, self- bandaging/compression options, and lymphedema exercises. STG Duration 12/22/23 [facility] Goal (LTG) Decrease patient?s lymphedema to a stable level (no increase or decrease greater than 1 cm over the course of 1 week), patient to be independent with all aspects of self-care for lymphedema, and will obtain appropriate compression garment for lymphedema management in the home. LTG Duration 02/05/24 Assessment Summary Assessment Today noted increase in circumferential measurements, likely due to increased time on feet over the weekend, plus notable need to review and correct self MLD technique. Patient did not bring bandages so continued with wearing layered compression stockings. Continues to have challenges managing his jozef LE lyphedema . Physical Therapy Plan Frequency and Duration Frequency of Treatment 20 Duration of treatment (weeks) 12 Plan of Care Start Date 11/06/23 Plan of Care End Date 02/05/24 Therapeutic Interventions Therapeutic Interventions Home Exercise Program, Lymphedema Management,Manual Therapy,Patient/Caregiver Education,Self-Care/Home Management,Taping,Therapeutic Activities,Therapeutic Exercises Modalities Vasopneumatic Devices Next Visit Focus/Plan Next Note Type Treatment Note Next Visit Plan Continue CDT, patient to bring bandages next session.
--- NOTE | 2023-12-06 08:56 | PT.OTN ---
Current Diagnoses Lymphedema, not elsewhere classified (12/06/23) Soft tissue disorder, unspecified (12/06/23) Physical Therapy Treatment Note PT-OP-A Visit Information Start: 11/05/23 16:25 Freq: Status: Active Protocol: Document 12/06/23 08:15 [facility] (Rec: 12/06/23 08:56 [facility] [id number]) Out-Patient Physical Therapy Visit Information Visit Information Visit Type Treatment Note Visit Start Time 08:15 Visit Number 8 PT-OP-B Current Condition Start: 11/05/23 16:25 Freq: Status: Active Protocol: Document 12/06/23 08:15 [facility] (Rec: 12/06/23 08:56 [facility] [id number]) Current Condition History of Current Condition Onset Date 39 y/0 Current Complaints lymphedema jozef LE's right greater than left. History of Current Condition development of lymphedema no known reason, thinks something to do with vasectomy, low grade infection on one side. Had to be hospitalized 1x due to infection/cellulitis. , frequently had to have IV antibiotics, would have development of cellulitis, Since 58 y/o, flare ups decreased to about once every couple years. Lately increase in swelling early summer, had dose of antibiots. Last saw doctor 1 month ago; had heart work up, low back workup, CT scan negative. Wearing 20-30 mm Hg stockings, has 30-40 mm Hg but they are a bit much, too much to get on and off. Has sequential pneumatic pump through PT in [place]. Has vibration plate, and massage plate for his feet. Also has neuropathy right foot. Feeling like his lymphedema is getting more out of control, difficulty managing himself. Normally swelling in right foot goes down at night, but gets pretty extreme during the day. Wondering if wearing his belt causing increased swelling into his legs. 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 Has appointment with fitter next week. May need custom 30-40 mm Hg. Very interested in pneumatic compression pump due to continued challenges with managing his lymphedema. Reports compliance to elevation, exercise, skin care , self MLD, and compression. Finished taking antibiotics for cellulitis right leg. PT-OP-F Manual Assessment Start: 11/05/23 16:25 Freq: Status: Active Protocol: Document 11/06/23 08:10 [facility] (Rec: 11/06/23 11:29 [facility] [id number]) Manual Assessments Soft Tissue Assessment Soft Tissue Mobility Assessment fibrosis jozef LE's right greataer than left, most significant mid calf distally on right PT-OP-J Posture/Palpation/Skin Start: 11/05/23 16:25 Freq: Status: Active Protocol: Document 11/20/23 08:15 [facility] (Rec: 11/20/23 09:13 [facility] [id number]) Palpation Assessment Location jozef LE's Palpation Findings Edema Palpation Details No increased redness or warmth left LE, light pink color right lower leg but without increased warmth. PT-OP-K Range of Motion Start: 11/05/23 16:25 Freq: Status: Active Protocol: Document 11/06/23 08:10 [facility] (Rec: 11/06/23 11:29 [facility] [id number]) Hip Goniometric Range of Motion Hip jozef Hip ROM WFL Yes Knee Goniometric Range of Motion Knee jozef Knee ROM WFL Yes Ankle and Foot Goniometric Range of Motion Ankle and Foot jozef Ankle/Foot ROM WFL Yes PT-OP-L Special Tests Start: 11/05/23 16:25 Freq: Status: Active Protocol: Document 11/06/23 08:10 [facility] (Rec: 11/06/23 11:29 [facility] [id number]) Special Tests Other Special Tests Special Tests Stemmer sign for lymphedema; positive jozef PT-OP-N Lymphedema Start: 11/05/23 16:25 Freq: Status: Active Protocol: Document 12/06/23 08:15 [facility] (Rec: 12/06/23 08:56 [facility] [id number]) Lymphedema Measurements Lower Extremity Circumference Measurements Right Affected MT Heads 27 cm Mid-foot 26.3 cm Medial Malleolus 30.4 cm 10 cm From Medial Malleolus 33.3 cm 20 cm From Medial Malleolus 42.7 cm 30 cm From Medial Malleolus 39.7 cm 40 cm From Medial Malleolus 40.6 cm 50 cm From Medial Malleolus 43.4 cm 60 cm From Medial Malleolus 51.2 cm 70 cm From Medial Malleolus 57.4 cm Knee Joint 40.6 cm Left Affected MT Heads 26.5 cm Mid-foot 26.7 cm Medial Malleolus 30 cm 10 cm From Medial Malleolus 29.3 cm 20 cm From Medial Malleolus 37.5 cm 30 cm From Medial Malleolus 36.3 cm 40 cm From Medial Malleolus 39.2 cm 50 cm From Medial Malleolus 41.5 cm 60 cm From Medial Malleolus 50.8 cm 70 cm From Medial Malleolus 57.2 cm Knee Joint 39.2 cm PT-OP-Q Treatments Start: 11/05/23 16:25 Freq: Status: Active Protocol: Document 12/04/23 08:23 [facility] (Rec: 12/04/23 08:46 [facility] [id number]) Lymphedema Treatment Manual Lymphatic Drainage Location jozef LE's Duration 45 Comments REview technique for self MLD, patient noted to be massaging toward distal at times, emphasis on massaging toward proximal sites. Lymphedema Wrapping Materials Pt wearing double 20-30 mm Hg thigh high right, 30-40 mm Hg thigh high left (tried 30-40 on right but cut into his ankle, feel he will likely need custom on right) Other no toe bandaging. Sequential Lymphedema Exercises Comments Sci-Fit x 10 min as above after bandaging to facilitate lymphatic flow after MLD and bandaging Compression Garment Assessment Compression Garment Assessment Details Good fit of garments as above Patient Education Compression Garments discussed options and given online resources to consider. Other Other instructed to make appointment with [facility] for end of next week for fitting. PT-OP-R Modalities Start: 11/05/23 16:25 Freq: Status: Active Protocol: Document 12/06/23 08:15 [facility] (Rec: 12/06/23 08:56 [facility] [id number]) Compression Pump Treatment Treatment Location right LE Pressure Amount (mmHg) (mmHG) 40 Inflation Time (Seconds) 30 Deflation Time (Seconds) 10 Treatment Tolerance Excellent PT-OP-T Assessment and Plan Start: 11/05/23 16:25 Freq: Status: Active Protocol: Document 12/06/23 08:15 [facility] (Rec: 10/16/24 08:56 [facility] [id number]) Physical Therapy Assessment Impairments Impairments Activity Tolerance,Edema, Integument,Soft Tissue Mobility Goals Three Impairment fibrosis jozef LE's worst right ankle Kicking Machine Operator Goal (LTG) Decrease fibrosis of LE soft tissue to minimal level through complete decongestive therapy LTG Duration 02/05/24 Two Impairment lymphedema life impact scale 54% Short Term Goal (STG) Decrease Lymphedema Life Impact Scale to no greater than 40% as measure of improved activity tolerance and quality of life. 12/06/23: goal met STG Duration goal met [facility]pc Goal (LTG) Decrease Lymphedema Life Impact Scale to no greater than 2-% as measure of improved activity tolerance and quality of life. LTG Duration 02/05/24 One Impairment lymphedema jozef LE Short Term Goal (STG) Patient will be instructed in all aspects of lymphedema self -care to include skin care, elevation, self-massage, self- bandaging/compression options, and lymphedema exercises. 12/06/23: goal met STG Duration goal met Fpc Goal (LTG) Decrease patient?s lymphedema to a stable level (no increase or decrease greater than 1 cm over the course of 1 week), patient to be independent with all aspects of self-care for lymphedema, and will obtain appropriate compression garment for lymphedema management in the home. LTG Duration 02/05/24 Assessment Summary Assessment Patient has now been seen for 30 days of conservative PT for lymphedema management including elevation, manual lymphatic drainage, skin care, exercise, and compression. Despite all this he continues to have challenges with managing his lymphedema and had recent bout of cellulitis in his right leg. Feel he would benefit highly from the use of a sequential pneumatic pump in the home. We have done a trial in the clinic and found it very beneficial. Physical Therapy Plan Frequency and Duration Frequency of Treatment 20 Duration of treatment (weeks) 12 Plan of Care Start Date 11/06/23 Plan of Care End Date 02/05/24 Therapeutic Interventions Therapeutic Interventions Home Exercise Program, Lymphedema Management,Manual Therapy,Patient/Caregiver Education,Self-Care/Home Management,Taping,Therapeutic Activities,Therapeutic Exercises Modalities Vasopneumatic Devices Next Visit Focus/Plan Next Note Type Treatment Note Next Visit Plan Continue CDT, patient to be fit with compression garments next week.
--- NOTE | 2023-12-11 08:40 | PT.OTN ---
Current Diagnoses Lymphedema, not elsewhere classified (12/11/23) Soft tissue disorder, unspecified (12/11/23) Physical Therapy Treatment Note PT-OP-A Visit Information Start: 11/05/23 16:25 Freq: Status: Active Protocol: Document 12/11/23 08:13 [facility] (Rec: 12/11/23 08:38 [facility] [id number]) Out-Patient Physical Therapy Visit Information Visit Information Visit Type Treatment Note Visit Start Time 08:15 Visit Stop Time 09:40 Visit Number 9 Evaluation Information Evaluation Date 11/06/23 PT-OP-B Current Condition Start: 11/05/23 16:25 Freq: Status: Active Protocol: Document 12/11/23 08:13 [facility] (Rec: 12/11/23 08:38 [facility] [id number]) Current Condition History of Current Condition Onset Date 39 y/0 Current Complaints lymphedema jozef LE's right greater than left. History of Current Condition development of lymphedema no known reason, thinks something to do with vasectomy, low grade infection on one side. Had to be hospitalized 1x due to infection/cellulitis. , frequently had to have IV antibiotics, would have development of cellulitis, Since 58 y/o, flare ups decreased to about once every couple years. Lately increase in swelling early summer, had dose of antibiots. Last saw doctor 1 month ago; had heart work up, low back workup, CT scan negative. Wearing 20-30 mm Hg stockings, has 30-40 mm Hg but they are a bit much, too much to get on and off. Has sequential pneumatic pump through PT in [place]. Has vibration plate, and massage plate for his feet. Also has neuropathy right foot. Feeling like his lymphedema is getting more out of control, difficulty managing himself. Normally swelling in right foot goes down at night, but gets pretty extreme during the day. Wondering if wearing his belt causing increased swelling into his legs. 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 [id number]) OP-PT Subjective Patient Comments Patient Comments No new c/o. Done with antibiotic, hasn't noticed a change in his leg. Calling [facility] today to confirm appointment. PT-OP-F Manual Assessment Start: 11/05/23 16:25 Freq: Status: Active Protocol: Document 11/06/23 08:10 [facility] (Rec: 11/06/23 11:29 [facility] [id number]) Manual Assessments Soft Tissue Assessment Soft Tissue Mobility Assessment fibrosis jozef LE's right greataer than left, most significant mid calf distally on right PT-OP-J Posture/Palpation/Skin Start: 11/05/23 16:25 Freq: Status: Active Protocol: Document 11/20/23 08:15 [facility] (Rec: 11/20/23 09:13 [facility] [id number]) Palpation Assessment Location jozef LE's Palpation Findings Edema Palpation Details No increased redness or warmth left LE, light pink color right lower leg but without increased warmth. PT-OP-K Range of Motion Start: 11/05/23 16:25 Freq: Status: Active Protocol: Document 11/06/23 08:10 [facility] (Rec: 11/06/23 11:29 [facility] [id number]) Hip Goniometric Range of Motion Hip jozef Hip ROM WFL Yes Knee Goniometric Range of Motion Knee jozef Knee ROM WFL Yes Ankle and Foot Goniometric Range of Motion Ankle and Foot jozef Ankle/Foot ROM WFL Yes PT-OP-L Special Tests Start: 11/05/23 16:25 Freq: Status: Active Protocol: Document 11/06/23 08:10 [facility] (Rec: 11/06/23 11:29 [facility] [id number]) Special Tests Other Special Tests Special Tests Stemmer sign for lymphedema; positive jozef PT-OP-N Lymphedema Start: 11/05/23 16:25 Freq: Status: Active Protocol: Document 12/11/23 08:13 [facility] (Rec: 12/11/23 08:38 [facility] [id number]) Lymphedema Measurements Lower Extremity Circumference Measurements Right Affected MT Heads 27.4 cm Mid-foot 26 cm Medial Malleolus 30.3 cm 10 cm From Medial Malleolus 30.5 cm 20 cm From Medial Malleolus 39.8 cm 30 cm From Medial Malleolus 41.5 cm 40 cm From Medial Malleolus 39.9 cm 50 cm From Medial Malleolus 41.3 cm 60 cm From Medial Malleolus 49.2 cm 70 cm From Medial Malleolus 57 cm Knee Joint 39.9 cm Left Affected MT Heads 26.8 cm Mid-foot 26.8 cm Medial Malleolus 29.9 cm 10 cm From Medial Malleolus 29.3 cm 20 cm From Medial Malleolus 36.7 cm 30 cm From Medial Malleolus 36.3 cm 40 cm From Medial Malleolus 39 cm 50 cm From Medial Malleolus 41.4 cm 60 cm From Medial Malleolus 50.6 cm 70 cm From Medial Malleolus 56.8 cm Knee Joint 39 cm PT-OP-Q Treatments Start: 11/05/23 16:25 Freq: Status: Active Protocol: Document 12/11/23 08:13 [facility] (Rec: 12/11/23 08:39 [facility] [id number]) Lymphedema Treatment Manual Lymphatic Drainage Location jozef LE's Duration 45 Lymphedema Wrapping Materials Pt wearing double 20-30 mm Hg thigh high right, 30-40 mm Hg thigh high left (tried 30-40 on right but cut into his ankle, feel he will likely need custom on right) Other toe bandaging Sequential Lymphedema Exercises Comments Sci-Fit x 10 min as above after bandaging to facilitate lymphatic flow after MLD and bandaging Compression Garment Assessment Compression Garment Assessment Details Good fit of garments as above Patient Education Compression Garments discussed options and given online resources to consider. Other Other instructed to make appointment with [facility] for end of next week for fitting. PT-OP-R Modalities Start: 11/05/23 16:25 Freq: Status: Active Protocol: Document 12/11/23 08:13 [facility] (Rec: 12/11/23 08:39 [facility] [id number]) Compression Pump Treatment Treatment Location right LE Pressure Amount (mmHg) (mmHG) 40 Inflation Time (Seconds) 30 Deflation Time (Seconds) 10 Treatment Tolerance Excellent PT-OP-T Assessment and Plan Start: 11/05/23 16:25 Freq: Status: Active Protocol: Document 12/11/23 08:13 [facility] (Rec: 12/11/23 08:38 [facility] [id number]) Physical Therapy Assessment Impairments Impairments Activity Tolerance,Edema, Integument,Soft Tissue Mobility Goals Three Impairment fibrosis jozef LE's worst right ankle Cotton Washer Goal (LTG) Decrease fibrosis of LE soft tissue to minimal level through complete decongestive therapy LTG Duration 02/05/24 Two Impairment lymphedema life impact scale 54% Short Term Goal (STG) Decrease Lymphedema Life Impact Scale to no greater than 40% as measure of improved activity tolerance and quality of life. 12/06/23: goal met STG Duration goal met [facility] Goal (LTG) Decrease Lymphedema Life Impact Scale to no greater than 2-% as measure of improved activity tolerance and quality of life. LTG Duration 02/05/24 One Impairment lymphedema jozef LE Short Term Goal (STG) Patient will be instructed in all aspects of lymphedema self -care to include skin care, elevation, self-massage, self- bandaging/compression options, and lymphedema exercises. 12/06/23: goal met STG Duration goal met Cotton Washer Goal (LTG) Decrease patient?s lymphedema to a stable level (no increase or decrease greater than 1 cm over the course of 1 week), patient to be independent with all aspects of self-care for lymphedema, and will obtain appropriate compression garment for lymphedema management in the home. LTG Duration 02/05/24 Assessment Summary Assessment Left leg stable min change in measurements. Noted further reductions right LE except at 40 cm prox ankle crease and 70 cm prox Physical Therapy Plan Frequency and Duration Frequency of Treatment 20 Duration of treatment (weeks) 12 Plan of Care Start Date 11/06/23 Plan of Care End Date 02/05/24 Therapeutic Interventions Therapeutic Interventions Home Exercise Program, Lymphedema Management,Manual Therapy,Patient/Caregiver Education,Self-Care/Home Management,Taping,Therapeutic Activities,Therapeutic Exercises Modalities Vasopneumatic Devices Next Visit Focus/Plan Next Note Type Treatment Note Next Visit Plan Continued CDT, pt to confirm fitting appointment.
--- NOTE | 2023-12-13 09:54 | PT.OTN ---
Current Diagnoses Lymphedema, not elsewhere classified (12/13/23) Soft tissue disorder, unspecified (12/13/23) Physical Therapy Treatment Note PT-OP-A Visit Information Start: 11/05/23 16:25 Freq: Status: Active Protocol: Document 12/13/23 08:19 SAK (Rec: 12/13/23 08:43 SAK [id number]) Out-Patient Physical Therapy Visit Information Visit Information Visit Type Treatment Note Visit Start Time 08:15 Visit Stop Time 09:40 Visit Number 10 Evaluation Information Evaluation Date 11/06/23 PT-OP-B Current Condition Start: 11/05/23 16:25 Freq: Status: Active Protocol: Document 12/13/23 08:19 SAK (Rec: 12/13/23 08:43 SAK [id number]) Current Condition History of Current Condition Onset Date 39 y/0 Current Complaints lymphedema jozef LE's right greater than left. History of Current Condition development of lymphedema no known reason, thinks something to do with vasectomy, low grade infection on one side. Had to be hospitalized 1x due to infection/cellulitis. , frequently had to have IV antibiotics, would have development of cellulitis, Since 58 y/o, flare ups decreased to about once every couple years. Lately increase in swelling early summer, had dose of antibiots. Last saw doctor 1 month ago; had heart work up, low back workup, CT scan negative. Wearing 20-30 mm Hg stockings, has 30-40 mm Hg but they are a bit much, too much to get on and off. Has sequential pneumatic pump through PT in [place]. Has vibration plate, and massage plate for his feet. Also has neuropathy right foot. Feeling like his lymphedema is getting more out of control, difficulty managing himself. Normally swelling in right foot goes down at night, but gets pretty extreme during the day. Wondering if wearing his belt causing increased swelling into his legs. 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 Overall PT has helped. Not changing as much anymore. Confirmed appointment with [facility]; on December 29, thought was earlier. Will call to see if any earlier appointments have opened up. PT-OP-F Manual Assessment Start: 11/05/23 16:25 Freq: Status: Active Protocol: Document 11/06/23 08:10 [facility] (Rec: 11/06/23 11:29 [facility] [id number]) Manual Assessments Soft Tissue Assessment Soft Tissue Mobility Assessment fibrosis jozef LE's right greataer than left, most significant mid calf distally on right PT-OP-J Posture/Palpation/Skin Start: 11/05/23 16:25 Freq: Status: Active Protocol: Document 11/20/23 08:15 SAK (Rec: 11/20/23 09:13 [facility] [id number]) Palpation Assessment Location jozef LE's Palpation Findings Edema Palpation Details No increased redness or warmth left LE, light pink color right lower leg but without increased warmth. PT-OP-K Range of Motion Start: 11/05/23 16:25 Freq: Status: Active Protocol: Document 11/06/23 08:10 [facility] (Rec: 11/06/23 11:29 [facility] [id number]) Hip Goniometric Range of Motion Hip jozef Hip ROM WFL Yes Knee Goniometric Range of Motion Knee jozef Knee ROM WFL Yes Ankle and Foot Goniometric Range of Motion Ankle and Foot jozef Ankle/Foot ROM WFL Yes PT-OP-L Special Tests Start: 11/05/23 16:25 Freq: Status: Active Protocol: Document 11/06/23 08:10 SAK (Rec: 11/06/23 11:29 [facility] [id number]) Special Tests Other Special Tests Special Tests Stemmer sign for lymphedema; positive jozef PT-OP-N Lymphedema Start: 11/05/23 16:25 Freq: Status: Active Protocol: Document 12/13/23 08:19 SAK (Rec: 12/13/23 08:43 [facility] [id number]) Lymphedema Measurements Lower Extremity Circumference Measurements Right Affected MT Heads 26.2 cm Mid-foot 26.6 cm Medial Malleolus 31.7 cm 10 cm From Medial Malleolus 30.6 cm 20 cm From Medial Malleolus 40.4 cm 30 cm From Medial Malleolus 41.3 cm 40 cm From Medial Malleolus 39.7 cm 50 cm From Medial Malleolus 41.5 cm 60 cm From Medial Malleolus 50.3 cm 70 cm From Medial Malleolus 57.7 cm Knee Joint 39.7 cm Left Affected MT Heads 26.9 cm Mid-foot 27.2 cm Medial Malleolus 30.5 cm 10 cm From Medial Malleolus 30 cm 20 cm From Medial Malleolus 37.3 cm 30 cm From Medial Malleolus 36.9 cm 40 cm From Medial Malleolus 39.5 cm 50 cm From Medial Malleolus 42 cm 60 cm From Medial Malleolus 51.7 cm 70 cm From Medial Malleolus 58.2 cm Knee Joint 39.5 cm PT-OP-Q Treatments Start: 11/05/23 16:25 Freq: Status: Active Protocol: Document 12/13/23 08:19 [facility] (Rec: 12/13/23 08:43 [facility] [id number]) Lymphedema Treatment Lymphedema Wrapping Body Location jozef LE's Materials toe bandaging, Size F Tricofix , Artiflex, Comprilan. Sequential Lymphedema Exercises Comments Sci-Fit x 10 min as above after bandaging to facilitate lymphatic flow after MLD and bandaging Compression Garment Assessment Compression Garment Assessment Details Patient awaiting appointment with fitter. When unable to bandage wearing 2 20-30mm Hg thigh high compression on right (found his current 30-40 mm Hg cut into the front of his ankle) and 1 20-30 mm Hg thigh high garment on left. Other Other appt at [facility] PT-OP-R Modalities Start: 11/05/23 16:25 Freq: Status: Active Protocol: Document 12/13/23 08:19 [facility] (Rec: 12/13/23 08:43 [facility] [id number]) Compression Pump Treatment Treatment Location right LE Pressure Amount (mmHg) (mmHG) 40 Inflation Time (Seconds) 30 Deflation Time (Seconds) 10 Treatment Tolerance Excellent PT-OP-T Assessment and Plan Start: 11/05/23 16:25 Freq: Status: Active Protocol: Document 12/13/23 08:19 [facility] (Rec: 12/13/23 08:43 [facility] [id number]) Physical Therapy Assessment Impairments Impairments Activity Tolerance,Edema, Integument,Soft Tissue Mobility Goals Three Impairment fibrosis jozef LE's worst right ankle [employer] Goal (LTG) Decrease fibrosis of LE soft tissue to minimal level through complete decongestive therapy 12/13/23: good goal progress LTG Duration 02/05/24 Two Impairment lymphedema life impact scale 54% Short Term Goal (STG) Decrease Lymphedema Life Impact Scale to no greater than 40% as measure of improved activity tolerance and quality of life. 12/13/23: 48% (increased after bout of cellulitis, had previously met) STG Duration goal met Half-Way Goal (LTG) Decrease Lymphedema Life Impact Scale to no greater than 2-% as measure of improved activity tolerance and quality of life. LTG Duration 02/05/24 One Impairment lymphedema jozef LE Short Term Goal (STG) Patient will be instructed in all aspects of lymphedema self -care to include skin care, elevation, self-massage, self- bandaging/compression options, and lymphedema exercises. 12/06/23: goal met STG Duration goal met [employer] Goal (LTG) Decrease patient?s lymphedema to a stable level (no increase or decrease greater than 1 cm over the course of 1 week), patient to be independent with all aspects of self-care for lymphedema, and will obtain appropriate compression garment for lymphedema management in the home. 12/13/23: goal progress LTG Duration 02/05/24 Assessment Summary Assessment Patient circumferential measurements appear to be stabilizing, mild variability today. Had thought he was scheduled for appointment with [facility] today but not until Nov 9. PT gone next week so compliance with all aspects of self care for lymphedema stressed. Next appointment Nov 5 with PT. He demonstrates good understanding of all aspects of self management including elevation, skin care, manual lymphatic drainage, compression, and exercise. Recommend thigh high class III compression for this patient, anticipate need for custom on right due to dimensions of leg. Also recommend toe caps for right foot. Physical Therapy Plan Frequency and Duration Frequency of Treatment 20 Duration of treatment (weeks) 12 Plan of Care Start Date 11/06/23 Plan of Care End Date 02/05/24 Therapeutic Interventions Therapeutic Interventions Home Exercise Program, Lymphedema Management,Manual Therapy,Patient/Caregiver Education,Self-Care/Home Management,Taping,Therapeutic Activities,Therapeutic Exercises Modalities Vasopneumatic Devices Next Visit Focus/Plan Next Note Type Treatment Note Next Visit Plan Continued CDT maintenance phase. Instruct in use of sequential pneumatic pump when delivered. Assure good fit of compression garments.
--- NOTE | 2023-12-13 14:38 | PT.OPPN ---
Current Diagnoses Lymphedema, not elsewhere classified (12/13/23) Soft tissue disorder, unspecified (12/13/23) Physical Therapy Progress Note PT-OP-A Visit Information Start: 11/05/23 16:25 Freq: Status: Active Protocol: Document 12/13/23 08:19 SAK (Rec: 12/13/23 08:43 SAK [id number]) Out-Patient Physical Therapy Visit Information Visit Information Visit Type Treatment Note Visit Start Time 08:15 Visit Stop Time 09:40 Visit Number 10 Evaluation Information Evaluation Date 11/06/23 PT-OP-B Current Condition Start: 11/05/23 16:25 Freq: Status: Active Protocol: Document 12/13/23 08:19 SAK (Rec: 12/13/23 08:43 SAK [id number]) Current Condition History of Current Condition Onset Date 39 y/0 Current Complaints lymphedema jozef LE's right greater than left. History of Current Condition development of lymphedema no known reason, thinks something to do with vasectomy, low grade infection on one side. Had to be hospitalized 1x due to infection/cellulitis. , frequently had to have IV antibiotics, would have development of cellulitis, Since 58 y/o, flare ups decreased to about once every couple years. Lately increase in swelling early summer, had dose of antibiots. Last saw doctor 1 month ago; had heart work up, low back workup, CT scan negative. Wearing 20-30 mm Hg stockings, has 30-40 mm Hg but they are a bit much, too much to get on and off. Has sequential pneumatic pump through PT in [place]. Has vibration plate, and massage plate for his feet. Also has neuropathy right foot. Feeling like his lymphedema is getting more out of control, difficulty managing himself. Normally swelling in right foot goes down at night, but gets pretty extreme during the day. Wondering if wearing his belt causing increased swelling into his legs. 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 Overall PT has helped. Not changing as much anymore. Confirmed appointment with [facility]; on December 29, thought was earlier. Will call to see if any earlier appointments have opened up. PT-OP-F Manual Assessment Start: 11/05/23 16:25 Freq: Status: Active Protocol: Document 11/06/23 08:10 SAK (Rec: 11/06/23 11:29 [facility] [id number]) Manual Assessments Soft Tissue Assessment Soft Tissue Mobility Assessment fibrosis jozef LE's right greataer than left, most significant mid calf distally on right PT-OP-J Posture/Palpation/Skin Start: 11/05/23 16:25 Freq: Status: Active Protocol: Document 11/20/23 08:15 SAK (Rec: 11/20/23 09:13 [facility] [id number]) Palpation Assessment Location jozef LE's Palpation Findings Edema Palpation Details No increased redness or warmth left LE, light pink color right lower leg but without increased warmth. PT-OP-K Range of Motion Start: 11/05/23 16:25 Freq: Status: Active Protocol: Document 11/06/23 08:10 SAK (Rec: 11/06/23 11:29 [facility] [id number]) Hip Goniometric Range of Motion Hip Measured in Degrees jozef Hip ROM WFL Yes Knee Goniometric Range of Motion Knee Measured in Degrees jozef Knee ROM WFL Yes Ankle and Foot Goniometric Range of Motion Ankle and Foot Measured in Degrees jozef Ankle/Foot ROM WFL Yes PT-OP-L Special Tests Start: 11/05/23 16:25 Freq: Status: Active Protocol: Document 11/06/23 08:10 SAK (Rec: 11/06/23 11:29 [facility] [id number]) Special Tests Other Special Tests Special Tests Stemmer sign for lymphedema; positive jozef PT-OP-N Lymphedema Start: 11/05/23 16:25 Freq: Status: Active Protocol: Document 12/13/23 08:19 SAK (Rec: 12/13/23 08:43 [facility] [id number]) Lymphedema Measurements Lower Extremity Circumference Measurements Right Affected MT Heads 26.2 cm Mid-foot 26.6 cm Medial Malleolus 31.7 cm 10 cm From Medial Malleolus 30.6 cm 20 cm From Medial Malleolus 40.4 cm 30 cm From Medial Malleolus 41.3 cm 40 cm From Medial Malleolus 39.7 cm 50 cm From Medial Malleolus 41.5 cm 60 cm From Medial Malleolus 50.3 cm 70 cm From Medial Malleolus 57.7 cm Knee Joint 39.7 cm Left Affected MT Heads 26.9 cm Mid-foot 27.2 cm Medial Malleolus 30.5 cm 10 cm From Medial Malleolus 30 cm 20 cm From Medial Malleolus 37.3 cm 30 cm From Medial Malleolus 36.9 cm 40 cm From Medial Malleolus 39.5 cm 50 cm From Medial Malleolus 42 cm 60 cm From Medial Malleolus 51.7 cm 70 cm From Medial Malleolus 58.2 cm Knee Joint 39.5 cm PT-OP-T Assessment and Plan Start: 11/05/23 16:25 Freq: Status: Active Protocol: Document 12/13/23 08:19 [facility] (Rec: 12/13/23 08:43 [facility] [id number]) Physical Therapy Assessment Impairments Impairments Activity Tolerance,Edema, Integument,Soft Tissue Mobility Goals Three Impairment fibrosis jozef LE's worst right ankle [facility] Goal (LTG) Decrease fibrosis of LE soft tissue to minimal level through complete decongestive therapy 12/13/23: good goal progress LTG Duration 02/05/24 Two Impairment lymphedema life impact scale 54% Short Term Goal (STG) Decrease Lymphedema Life Impact Scale to no greater than 40% as measure of improved activity tolerance and quality of life. 12/13/23: 48% (increased after bout of cellulitis, had previously met) STG Duration goal met [facility] Goal (LTG) Decrease Lymphedema Life Impact Scale to no greater than 2-% as measure of improved activity tolerance and quality of life. LTG Duration 02/05/24 One Impairment lymphedema jozef LE Short Term Goal (STG) Patient will be instructed in all aspects of lymphedema self -care to include skin care, elevation, self-massage, self- bandaging/compression options, and lymphedema exercises. 12/06/23: goal met STG Duration goal met [facility] Goal (LTG) Decrease patient?s lymphedema to a stable level (no increase or decrease greater than 1 cm over the course of 1 week), patient to be independent with all aspects of self-care for lymphedema, and will obtain appropriate compression garment for lymphedema management in the home. 12/13/23: goal progress LTG Duration 02/05/24 Assessment Summary Assessment Patient circumferential measurements appear to be stabilizing, mild variability today. Had thought he was scheduled for appointment with fitter today but not until Nov 9. PT gone next week so compliance with all aspects of self care for lymphedema stressed. Next appointment Nov 5 with PT. He demonstrates good understanding of all aspects of self management including elevation, skin care, manual lymphatic drainage, compression, and exercise. Recommend thigh high class III compression for this patient, anticipate need for custom on right due to dimensions of leg. Also recommend toe caps for right foot. Physical Therapy Plan Frequency and Duration Frequency of Treatment 20 Duration of treatment (weeks) 12 Plan of Care Start Date 11/06/23 Plan of Care End Date 02/05/24 Therapeutic Interventions Therapeutic Interventions Home Exercise Program, Lymphedema Management,Manual Therapy,Patient/Caregiver Education,Self-Care/Home Management,Taping,Therapeutic Activities,Therapeutic Exercises Modalities Vasopneumatic Devices Next Visit Focus/Plan Next Note Type Treatment Note Next Visit Plan Continued CDT maintenance phase. Instruct in use of sequential pneumatic pump when delivered. Assure good fit of compression garments.
--- NOTE | 2023-12-26 15:45 | PT.OTN ---
Current Diagnoses Lymphedema, not elsewhere classified (12/26/23) Soft tissue disorder, unspecified (12/26/23) Physical Therapy Treatment Note PT-OP-A Visit Information Start: 11/05/23 16:25 Freq: Status: Active Protocol: Document 12/26/23 14:38 [facility] (Rec: 12/26/23 15:45 [facility] [id number]) Out-Patient Physical Therapy Visit Information Visit Information Visit Type Treatment Note Visit Start Time 14:38 Visit Number 11 PT-OP-B Current Condition Start: 11/05/23 16:25 Freq: Status: Active Protocol: Document 12/13/23 08:19 [facility] (Rec: 12/13/23 08:43 [facility] [id number]) Current Condition History of Current Condition Onset Date 39 y/0 Current Complaints lymphedema jozef LE's right greater than left. History of Current Condition development of lymphedema no known reason, thinks something to do with vasectomy, low grade infection on one side. Had to be hospitalized 1x due to infection/cellulitis. , frequently had to have IV antibiotics, would have development of cellulitis, Since 58 y/o, flare ups decreased to about once every couple years. Lately increase in swelling early summer, had dose of antibiots. Last saw doctor 1 month ago; had heart work up, low back workup, CT scan negative. Wearing 20-30 mm Hg stockings, has 30-40 mm Hg but they are a bit much, too much to get on and off. Has sequential pneumatic pump through PT in [place]. Has vibration plate, and massage plate for his feet. Also has neuropathy right foot. Feeling like his lymphedema is getting more out of control, difficulty managing himself. Normally swelling in right foot goes down at night, but gets pretty extreme during the day. Wondering if wearing his belt causing increased swelling into his legs. 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 Overall PT has helped. Not changing as much anymore. Confirmed appointment with Sonali; on December 29, thought was earlier. Will call to see if any earlier appointments have opened up. PT-OP-F Manual Assessment Start: 11/05/23 16:25 Freq: Status: Active Protocol: Document 11/06/23 08:10 [facility] (Rec: 11/06/23 11:29 [facility] [id number]) Manual Assessments Soft Tissue Assessment Soft Tissue Mobility Assessment fibrosis jozef LE's right greataer than left, most significant mid calf distally on right PT-OP-J Posture/Palpation/Skin Start: 11/05/23 16:25 Freq: Status: Active Protocol: Document 11/20/23 08:15 [facility] (Rec: 11/20/23 09:13 [facility] [id number]) Palpation Assessment Location jozef LE's Palpation Findings Edema Palpation Details No increased redness or warmth left LE, light pink color right lower leg but without increased warmth. PT-OP-K Range of Motion Start: 11/05/23 16:25 Freq: Status: Active Protocol: Document 11/06/23 08:10 [facility] (Rec: 11/06/23 11:29 [facility] [id number]) Hip Goniometric Range of Motion Hip jozef Hip ROM WFL Yes Knee Goniometric Range of Motion Knee jozef Knee ROM WFL Yes Ankle and Foot Goniometric Range of Motion Ankle and Foot jozef Ankle/Foot ROM WFL Yes PT-OP-L Special Tests Start: 11/05/23 16:25 Freq: Status: Active Protocol: Document 11/06/23 08:10 [facility] (Rec: 11/06/23 11:29 [facility] [id number]) Special Tests Other Special Tests Special Tests Stemmer sign for lymphedema; positive jozef PT-OP-N Lymphedema Start: 11/05/23 16:25 Freq: Status: Active Protocol: Document 12/13/23 08:19 [facility] (Rec: 12/13/23 08:43 [facility] [id number]) Lymphedema Measurements Lower Extremity Circumference Measurements Right Affected MT Heads 26.2 cm Mid-foot 26.6 cm Medial Malleolus 31.7 cm 10 cm From Medial Malleolus 30.6 cm 20 cm From Medial Malleolus 40.4 cm 30 cm From Medial Malleolus 41.3 cm 40 cm From Medial Malleolus 39.7 cm 50 cm From Medial Malleolus 41.5 cm 60 cm From Medial Malleolus 50.3 cm 70 cm From Medial Malleolus 57.7 cm Knee Joint 39.7 cm Left Affected MT Heads 26.9 cm Mid-foot 27.2 cm Medial Malleolus 30.5 cm 10 cm From Medial Malleolus 30 cm 20 cm From Medial Malleolus 37.3 cm 30 cm From Medial Malleolus 36.9 cm 40 cm From Medial Malleolus 39.5 cm 50 cm From Medial Malleolus 42 cm 60 cm From Medial Malleolus 51.7 cm 70 cm From Medial Malleolus 58.2 cm Knee Joint 39.5 cm PT-OP-Q Treatments Start: 11/05/23 16:25 Freq: Status: Active Protocol: Document 12/26/23 14:38 [facility] (Rec: 12/26/23 15:45 [facility] [id number]) Lymphedema Treatment Lymphedema Wrapping Body Location jozef toes Materials toe bandages, then patient donned layered compression stockings Other Other Instructed in set up and use of jozef LE Airos 6 sequential pneumatic pump for home use. Issued pump after instruction PT-OP-R Modalities Start: 11/05/23 16:25 Freq: Status: Active Protocol: Document 12/13/23 08:19 [facility] (Rec: 12/13/23 08:43 [facility] [id number]) Compression Pump Treatment Treatment Location right LE Pressure Amount (mmHg) (mmHG) 40 Inflation Time (Seconds) 30 Deflation Time (Seconds) 10 Treatment Tolerance Excellent PT-OP-T Assessment and Plan Start: 11/05/23 16:25 Freq: Status: Active Protocol: Document 12/26/23 14:38 [facility] (Rec: 12/26/23 15:45 [facility] [id number]) Physical Therapy Assessment Goals Three 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 12/13/23: 48% (increased after bout of cellulitis, had previously met) STG Duration goal met Leveler Helper Goal (LTG) Decrease Lymphedema Life Impact Scale to no greater than 2-% as measure of improved activity tolerance and quality of life. LTG Duration 02/05/24 One Impairment lymphedema jozef LE Short Term Goal (STG) Patient will be instructed in all aspects of lymphedema self -care to include skin care, elevation, self-massage, self- bandaging/compression options, and lymphedema exercises. 12/06/23: goal met STG Duration goal met Leveler Helper Goal (LTG) Decrease patient?s lymphedema to a stable level (no increase or decrease greater than 1 cm over the course of 1 week), patient to be independent with all aspects of self-care for lymphedema, and will obtain appropriate compression garment for lymphedema management in the home. 12/13/23: goal progress LTG Duration 02/05/24 Assessment Summary Assessment Patient demonstrated gtood understanding of set up and use of pneumatic compression pump after instruction today, pump issued to patient. Toe wraps applied to jozef feet, then patient donned layered thigh high compression stockings. Has appointment at [facility] on Monday for garment consult. Physical Therapy Plan Frequency and Duration Frequency of Treatment 20 Duration of treatment (weeks) 12 Plan of Care Start Date 11/06/23 Plan of Care End Date 02/05/24 Therapeutic Interventions Therapeutic Interventions Home Exercise Program, Lymphedema Management,Manual Therapy,Patient/Caregiver Education,Self-Care/Home Management,Taping,Therapeutic Activities,Therapeutic Exercises Modalities Vasopneumatic Devices Next Visit Focus/Plan Next Note Type Treatment Note Next Visit Plan Continue CDT, assure good fit of compression garments
--- NOTE | 2024-01-16 15:18 | PT.OTN ---
Current Diagnoses Lymphedema, not elsewhere classified (01/16/24) Soft tissue disorder, unspecified (01/16/24) Physical Therapy Treatment Note PT-OP-A Visit Information Start: 11/05/23 16:25 Freq: Status: Active Protocol: Document 01/16/24 14:35 [facility] (Rec: 01/16/24 15:17 [facility] [id number]) Out-Patient Physical Therapy Visit Information Visit Information Visit Type Treatment Note Visit Start Time 14:35 Visit Number 12 Evaluation Information Evaluation Date 11/06/23 PT-OP-B Current Condition Start: 11/05/23 16:25 Freq: Status: Active Protocol: Document 01/16/24 14:35 [facility] (Rec: 01/16/24 15:17 [facility] [id number]) Current Condition History of Current Condition Onset Date 39 y/0 Current Complaints lymphedema jozef LE's right greater than left. History of Current Condition development of lymphedema no known reason, thinks something to do with vasectomy, low grade infection on one side. Had to be hospitalized 1x due to infection/cellulitis. , frequently had to have IV antibiotics, would have development of cellulitis, Since 58 y/o, flare ups decreased to about once every couple years. Lately increase in swelling early summer, had dose of antibiots. Last saw doctor 1 month ago; had heart work up, low back workup, CT scan negative. Wearing 20-30 mm Hg stockings, has 30-40 mm Hg but they are a bit much, too much to get on and off. Has sequential pneumatic pump through PT in [place]. Has vibration plate, and massage plate for his feet. Also has neuropathy right foot. Feeling like his lymphedema is getting more out of control, difficulty managing himself. Normally swelling in right foot goes down at night, but gets pretty extreme during the day. Wondering if wearing his belt causing increased swelling into his legs. 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 PT-OP-C Subjective Start: 11/05/23 16:25 Freq: Status: Active Protocol: Document 01/16/24 14:35 [facility] (Rec: 01/16/24 15:17 [facility] [id number]) OP-PT Subjective Patient Comments Patient Comments Garments have been sent but hasn't received yet. Has been uysing the pump without difficulty PT-OP-F Manual Assessment Start: 11/05/23 16:25 Freq: Status: Active Protocol: Document 11/06/23 08:10 [facility] (Rec: 11/06/23 11:29 [facility] [id number]) Manual Assessments Soft Tissue Assessment Soft Tissue Mobility Assessment fibrosis jozef LE's right greataer than left, most significant mid calf distally on right PT-OP-J Posture/Palpation/Skin Start: 11/05/23 16:25 Freq: Status: Active Protocol: Document 11/20/23 08:15 [facility] (Rec: 11/20/23 09:13 [facility] [id number]) Palpation Assessment Location jozef LE's Palpation Findings Edema Palpation Details No increased redness or warmth left LE, light pink color right lower leg but without increased warmth. PT-OP-K Range of Motion Start: 11/05/23 16:25 Freq: Status: Active Protocol: Document 11/06/23 08:10 [facility] (Rec: 11/06/23 11:29 [facility] [id number]) Hip Goniometric Range of Motion Hip jozef Hip ROM WFL Yes Knee Goniometric Range of Motion Knee jozef Knee ROM WFL Yes Ankle and Foot Goniometric Range of Motion Ankle and Foot jozef Ankle/Foot ROM WFL Yes PT-OP-L Special Tests Start: 11/05/23 16:25 Freq: Status: Active Protocol: Document 11/06/23 08:10 [facility] (Rec: 11/06/23 11:29 [facility] [id number]) Special Tests Other Special Tests Special Tests Stemmer sign for lymphedema; positive jozef PT-OP-N Lymphedema Start: 11/05/23 16:25 Freq: Status: Active Protocol: Document 01/16/24 14:35 [facility] (Rec: 01/16/24 15:17 [facility] [id number]) Lymphedema Measurements Lower Extremity Circumference Measurements Right Affected MT Heads 27.7 cm Mid-foot 26.8 cm Medial Malleolus 30.7 cm 10 cm From Medial Malleolus 28.7 cm 20 cm From Medial Malleolus 40.2 cm 30 cm From Medial Malleolus 41.5 cm 40 cm From Medial Malleolus 39.5 cm 50 cm From Medial Malleolus 42.2 cm 60 cm From Medial Malleolus 50.2 cm 70 cm From Medial Malleolus 57.4 cm Knee Joint 40.5 cm Left Affected MT Heads 26.4 cm Mid-foot 26.2 cm Medial Malleolus 30.7 cm 10 cm From Medial Malleolus 31 cm 20 cm From Medial Malleolus 37.8 cm 30 cm From Medial Malleolus 36.7 cm 40 cm From Medial Malleolus 39.6 cm 50 cm From Medial Malleolus 45.7 cm 60 cm From Medial Malleolus 54 cm 70 cm From Medial Malleolus 60.5 cm Knee Joint 39.6 cm PT-OP-Q Treatments Start: 11/05/23 16:25 Freq: Status: Active Protocol: Document 01/16/24 14:35 [facility] (Rec: 01/16/24 15:17 [facility] [id number]) Lymphedema Treatment Manual Lymphatic Drainage Location Patient indep, also using pump at home. Lymphedema Wrapping Materials Patient is going to put on compression garments when returns home; removed to put in wash just prior to coming to PT Sequential Lymphedema Exercises Comments Patient indep Compression Garment Assessment Compression Garment Assessment Details Patient did not have yet, will talk by phone and see if another PT visit necessary, if having issues with compression may need to see again. PT-OP-R Modalities Start: 11/05/23 16:25 Freq: Status: Active Protocol: Document 01/16/24 14:35 [facility] (Rec: 01/16/24 15:17 [facility] [id number]) Compression Pump Treatment Treatment Location right LE Treatment Comments pt using at home PT-OP-T Assessment and Plan Start: 11/05/23 16:25 Freq: Status: Active Protocol: Document 01/16/24 14:35 [facility] (Rec: 01/16/24 15:17 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 12/13/23: 48% (increased after bout of cellulitis, had previously met) STG Duration goal met Halfway Goal (LTG) Decrease Lymphedema Life Impact Scale to no greater than 20% as measure of improved activity tolerance and quality of life. LTG Duration goal met One Impairment lymphedema jozef LE Short Term Goal (STG) Patient will be instructed in all aspects of lymphedema self -care to include skin care, elevation, self-massage, self- bandaging/compression options, and lymphedema exercises. 12/06/23: goal met STG Duration goal met Waiter Waitress Goal (LTG) Decrease patient?s lymphedema to a stable level (no increase or decrease greater than 1 cm over the course of 1 week), patient to be independent with all aspects of self-care for lymphedema, and will obtain appropriate compression garment for lymphedema management in the home. 12/13/23: goal progress 01/16/24: all goals achieved except has not received compression garments yet LTG Duration 02/05/24 Assessment Summary Assessment Patient circumferential measurements stable, independent with all aspects of lymphedema self care except has not received new garments yet. Patient to contact PT when receives and let know if feels need for assistance with garments. If fit and function well, no need for further PT at this time. Physical Therapy Plan Frequency and Duration Frequency of Treatment 20 Duration of treatment (weeks) 12 Plan of Care Start Date 11/06/23 Plan of Care End Date 02/05/24 Therapeutic Interventions Therapeutic Interventions Home Exercise Program, Lymphedema Management,Manual Therapy,Patient/Caregiver Education,Self-Care/Home Management,Taping,Therapeutic Activities,Therapeutic Exercises Modalities Vasopneumatic Devices Next Visit Focus/Plan Next Note Type Treatment Note Next Visit Plan Assure good fit of compression garments if pt. feels need for appointment or assist with problem-solving fit or donning/doffing
--- NOTE | 2024-06-18 09:45 | PT.OPDS ---
Current Diagnoses Lymphedema, not elsewhere classified (01/16/24) Soft tissue disorder, unspecified (01/16/24) Visit Care Team Role Provider Type ISMAEL Parsons Attending Provider Non-Staff Family Provider Primary Care Provider Referring Provider Specialty: Medical Address: [address] [place] [address], [place], [address] Email: Visit Number Visit Number 12 Discharge Summary PT-OP-B Current Condition Start: 11/05/23 16:25 Freq: Status: Active Protocol: Document 01/16/24 14:35 [facility] (Rec: 01/16/24 15:17 [facility] [id number]) Current Condition History of Current Condition Onset Date 39 y/0 Current Complaints lymphedema jozef LE's right greater than left. History of Current Condition development of lymphedema no known reason, thinks something to do with vasectomy, low grade infection on one side. Had to be hospitalized 1x due to infection/cellulitis. , frequently had to have IV antibiotics, would have development of cellulitis, Since 58 y/o, flare ups decreased to about once every couple years. Lately increase in swelling early summer, had dose of antibiots. Last saw doctor 1 month ago; had heart work up, low back workup, CT scan negative. Wearing 20-30 mm Hg stockings, has 30-40 mm Hg but they are a bit much, too much to get on and off. Has sequential pneumatic pump through PT in [place]. Has vibration plate, and massage plate for his feet. Also has neuropathy right foot. Feeling like his lymphedema is getting more out of control, difficulty managing himself. Normally swelling in right foot goes down at night, but gets pretty extreme during the day. Wondering if wearing his belt causing increased swelling into his legs. 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 PT-OP-C Subjective Start: 11/05/23 16:25 Freq: Status: Active Protocol: Document 01/16/24 14:35 [facility] (Rec: 01/16/24 15:17 [facility] [id number]) OP-PT Subjective Patient Comments Patient Comments Garments have been sent but hasn't received yet. Has been uysing the pump without difficulty PT-OP-F Manual Assessment Start: 11/05/23 16:25 Freq: Status: Active Protocol: Document 11/06/23 08:10 [facility] (Rec: 11/06/23 11:29 [facility] [id number]) Manual Assessments Soft Tissue Assessment Soft Tissue Mobility Assessment fibrosis jozef LE's right greataer than left, most significant mid calf distally on right PT-OP-J Posture/Palpation/Skin Start: 11/05/23 16:25 Freq: Status: Active Protocol: Document 11/20/23 08:15 [facility] (Rec: 11/20/23 09:13 [facility] [id number]) Palpation Assessment Location jozef LE's Palpation Findings Edema Palpation Details No increased redness or warmth left LE, light pink color right lower leg but without increased warmth. PT-OP-K Range of Motion Start: 11/05/23 16:25 Freq: Status: Active Protocol: Document 11/06/23 08:10 [facility] (Rec: 11/06/23 11:29 [facility] [id number]) Hip Goniometric Range of Motion Hip jozef Hip ROM WFL Yes Knee Goniometric Range of Motion Knee jozef Knee ROM WFL Yes Ankle and Foot Goniometric Range of Motion Ankle and Foot jozef Ankle/Foot ROM WFL Yes PT-OP-L Special Tests Start: 11/05/23 16:25 Freq: Status: Active Protocol: Document 11/06/23 08:10 [facility] (Rec: 11/06/23 11:29 [facility] [id number]) Special Tests Other Special Tests Special Tests Stemmer sign for lymphedema; positive jozef PT-OP-N Lymphedema Start: 11/05/23 16:25 Freq: Status: Active Protocol: Document 01/16/24 14:35 [facility] (Rec: 01/16/24 15:17 [facility] [id number]) Lymphedema Measurements Lower Extremity Circumference Measurements Right Affected MT Heads 27.7 cm Mid-foot 26.8 cm Medial Malleolus 30.7 cm 10 cm From Medial Malleolus 28.7 cm 20 cm From Medial Malleolus 40.2 cm 30 cm From Medial Malleolus 41.5 cm 40 cm From Medial Malleolus 39.5 cm 50 cm From Medial Malleolus 42.2 cm 60 cm From Medial Malleolus 50.2 cm 70 cm From Medial Malleolus 57.4 cm Knee Joint 40.5 cm Left Affected MT Heads 26.4 cm Mid-foot 26.2 cm Medial Malleolus 30.7 cm 10 cm From Medial Malleolus 31 cm 20 cm From Medial Malleolus 37.8 cm 30 cm From Medial Malleolus 36.7 cm 40 cm From Medial Malleolus 39.6 cm 50 cm From Medial Malleolus 45.7 cm 60 cm From Medial Malleolus 54 cm 70 cm From Medial Malleolus 60.5 cm Knee Joint 39.6 cm PT-OP-T Assessment and Plan Start: 11/05/23 16:25 Freq: Status: Active Protocol: Document 01/16/24 14:35 [facility] (Rec: 01/16/24 15:17 [facility] [id number]) Physical Therapy Assessment Goals Three 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 12/13/23: 48% (increased after bout of cellulitis, had previously met) STG Duration goal met Residential Goal (LTG) Decrease Lymphedema Life Impact Scale to no greater than 20% as measure of improved activity tolerance and quality of life. LTG Duration goal met One Impairment lymphedema jozef LE Short Term Goal (STG) Patient will be instructed in all aspects of lymphedema self -care to include skin care, elevation, self-massage, self- bandaging/compression options, and lymphedema exercises. 12/06/23: goal met STG Duration goal met Residential Goal (LTG) Decrease patient?s lymphedema to a stable level (no increase or decrease greater than 1 cm over the course of 1 week), patient to be independent with all aspects of self-care for lymphedema, and will obtain appropriate compression garment for lymphedema management in the home. 12/13/23: goal progress 01/16/24: all goals achieved except has not received compression garments yet LTG Duration 02/05/24 Assessment Summary Assessment Patient circumferential measurements stable, independent with all aspects of lymphedema self care except has not received new garments yet. Patient to contact PT when receives and let know if feels need for assistance with garments. If fit and function well, no need for further PT at this time. Physical Therapy Plan Frequency and Duration Frequency of Treatment 20 Duration of treatment (weeks) 12 Plan of Care Start Date 11/06/23 Plan of Care End Date 02/05/24 Therapeutic Interventions Therapeutic Interventions Home Exercise Program, Lymphedema Management,Manual Therapy,Patient/Caregiver Education,Self-Care/Home Management,Taping,Therapeutic Activities,Therapeutic Exercises Modalities Vasopneumatic Devices Next Visit Focus/Plan Next Note Type Treatment Note Next Visit Plan Assure good fit of compression garments if pt. feels need for appointment or assist with problem-solving fit or donning/doffing
== END 2024-06-19 13:09 | disposition home or self-care (01) ==
LOC: PHYS 14:30
PROVIDERS: Family Provider Nurse Practitioner Family; PCP Nurse Practitioner Family; Referring Provider Nurse Practitioner Family; Visit Provider Nurse Practitioner Family
DX: I89.0 Lymphedema, not elsewhere classified (principal); M79.9 Soft tissue disorder, unspecified
CPT/HCPCS: 29581; 97016; 97110; 97140; 97162; 97535